=== PATIENT | female | born 1965 | race African-American/Black ===

== ENCOUNTER → 2016-03-26 | Outpatient (REF) | payer OTHER ==
[2016-03-26 15:34] LABS: IMMUNOGLOBULIN G 1760 MG/DL (681-1648); IMMUNOGLOBULIN M 56.2 MG/DL (40-230); TOTAL PROTEIN 7.7 GM/DL (6.4-8.2)
[2016-03-27 14:12] LABS: BETA 2 MICROGLOBULIN 1.4 mg/L (0.6-2.4)
[2016-03-28 00:06] LABS: FREE KAPPA LIGHT CHAINS SERUM 19.55 mg/L (3.30-19.40); FREE LAMBDA LIGHT CHAINS SERUM 46.42 mg/L (5.71-26.30); KAPPA/LAMBDA RATIO SERUM 0.42 (0.26-1.65)
[2016-03-30 11:48] LABS: ALBUMIN 3.68 GM/DL (3.29-5.55); ALBUMIN % 51.1 % (55.8-66.1); GAMMA GLOBULIN % 24.2 % (11.1-18.8)
== END | disposition home or self-care (01) ==
LOC: M LAB REF 12:35
PROVIDERS: ATTEND Internal Medicine Medical Oncology
DX: D47.2 Monoclonal gammopathy (principal)

== ENCOUNTER → 2016-04-10 | Outpatient (CLI) | payer OTHER ==
--- NOTE | 2016-04-23 00:37 | ECWPNPC ---
PATIENT NAME: JUSTYNA ALSTON : 1965 GENDER: FEMALE VISIT DATE: 04/10/2016 DISCHARGE DATE: 04/10/16 1546 VISIT LOCKED DATE TIME: PHYSICIAN: BEAR ROSSI RESOURCE: BEAR ROSSI REASON FOR APPOINTMENT 1. L BACK PAIN HISTORY OF PRESENT ILLNESS NEW PATIENT CONSULT: WHEN DID YOUR PAIN FIRST START? . BRIEFLY DESCRIBE HOW YOUR PAIN STARTED? . HOW DOES YOUR PAIN CHANGE WITH TIME? . DOES YOUR PAIN AWAKEN YOU FROM SLEEP? . HOW MANY HOURS OF SLEEP DO YOU NORMALLY GET? . ANY DIAGNOSTIC TESTING? . FACILITY WHERE TESTS WERE DONE? ____. PAIN TREATMENT TREATMENT YES CANCER HAVE YOU EVER HAD ANY TYPE OF CANCER?NO NO. PAIN SCREENING: PATIENT HAS A COMPLAINT OF ACUTE OR CHRONIC PAIN YES FALL RISK SCREENING: SCREENING :NO FALLS IN THE PAST YEAR [place] INVENTORY: QUESTIONNAIRE ASSESSEDYES SCORE VALUE CALCULATED YES SCORE: 21/63. REPORTS SHE HAS HAD THOUGHTS OF SELF HARM BUT NOT CURRENTLY. DENIES SUICIDE PLAN. DENIES HOMICIDAL IDEATION TODAY'S VISIT: NOTES: REFERREED FROM [facility] FOR EVAL AND TREATMENT OF CHRONIC LOW BACK PAIN. HAS HAD PREVIOUS TREATMENT IN [place] WHILE STATIONED. HAD A &QUOT;BLOCK&QUOT; WHICH LASTED LONGER THAN A MONTH. LAST INJECTION WS 08/14. HAS HAD PAIN FOR A LONG TIME. CAN NOT WALK FOR A DISTANCE, AND HAS BEEN HAVING DIFFICULTY. PAIN IS CENTERED IN LOW BACK WITH RADIATION TO RIGHT BUTTUCK AND OCCASIONAL SHARP SHOOTING PAIN DOWN RIGHT LEG HAS DIFFICULTY RISING TO A STANDING POSITION.. HAS INTTERMITTANT NUMBNESS IN RIGHT LEG AND FOOT. NO SPECIFIC INJURY AND PAIN . HAS BILATERAL KNEE PAIN AND NOTES THAT KNEES FEEL WEAK. HAS BEEN DOING DAILY EXERCISES, HAS BEEN TO PT. HAS NOT HAD ANY RECENT IMAGING STUDIES OF THE LOW BACK. USES 'S TENS UNIT. CURRENT MEDICATIONS TAKING TOPIRAMATE 50 MG TABLET 2 TABLET ORALLY TWICE A DAY TAKING INDOMETHACIN 50 MG CAPSULE 4 CAPSULES WITH FOOD OR MILK ORALLY NEEDED TAKING MODAFINIL 200 MG TABLET 1 TABLET IN THE MORNING ORALLY ONCE A DAY TAKING CLOBETASOL PROPIONATE 0.05 % CREAM 1 APPLICATION TO AFFECTED AREA EXTERNALLY TWICE A DAY TAKING PREMPRO 0.625-2.5 MG TABLET 1 TABLET ORALLY ONCE A DAY TAKING DOXYCYCLINE HYCLATE 100 MG CAPSULE 1 CAPSULE ORALLY EVERY 12 HRS TAKING LORATADINE 10 MG TABLET 1 TABLET ORALLY ONCE A DAY TAKING OMEPRAZOLE 20 MG CAPSULE DELAYED RELEASE 2 CAPSULES ORALLY ONCE A DAY TAKING HYDROXYCHLOROQUINE SULFATE 200 MG TABLET 1 TABLET WITH FOOD OR MILK ORALLY TWICE A DAY TAKING HYDROXYZINE HCL 10 MG TABLET ORALLY NEEDED TAKING ALBUTEROL SULFATE HFA 108 (90 BASE) MCG/ACT AEROSOL SOLUTION 2 PUFFS NEEDED INHALATION EVERY 4 HRS TAKING ADVAIR DISKUS 250-50 MCG/DOSE MISCELLANEOUS INHALATION TWICE DAILY TAKING VERAPAMIL HCL 240 MG (CO) TABLET EXTENDED RELEASE ORALLY DAILY TAKING ACETAMINOPHEN 325 MG TABLET 2 TABLETS NEEDED ORALLY EVERY 6 HRS TAKING PREVIDENT 1.1 % GEL DENTAL TAKING FLUTICASONE PROPIONATE (INHAL) 100 MCG/BLIST AEROSOL POWDER BREATH ACTIVATED 1 PUFF INHALATION TWICE A DAY TAKING FLUOXETINE TAKING DULOXETINE HCL 60 MG CAPSULE DELAYED RELEASE PARTICLES 1 CAPSULE ORALLY ONCE A DAY TAKING CELECOXIB 200 MG CAPSULE 1 CAPSULE ORALLY ONCE A DAY MEDICATION LIST REVIEWED AND RECONCILED WITH THE PATIENT PAST MEDICAL HISTORY CHEST PAIN ASTHMA HYPERTENSION NEGRITO WITH CPAP GERD LUPUS ARTHRITIS M JO ALLERGIES IMITREX: SEIZURES: ALLERGY IMPLANON: RASH: ALLERGY IV DYE: ANAPHYLAXIS: ALLERGY SURGICAL HISTORY APPENDIX 1993 C SECTION 1995 DYSPLASIA 1990 HERNIA REPAIR 1993 BUNIONECTOMY 1996 UTERAL ABLATION 2008 MULTIPLE INJECTIONS FOR BACK PAIN FAMILY HISTORY FATHER: MOTHER: ALIVE 2 SON(S) , 3 DAUGHTER(S) . SOCIAL HISTORY GENERAL: TOBACCO USE ARE YOU A:NONSMOKER ALCOHOL SCREENING POINTS0 INTERPRETATIONNEGATIVE RECREATIONAL DRUG USE DRUG USE?NO CAFFEINE CAFFEINE USE?YES HOW OFTEN AND HOW MUCH? DAILY USE LEARNING BARRIERS / SPECIAL NEEDS BARRIERS TO LEARNING?NO HEARING IMPAIRED?YES : SLIGHT LEFT EAR HEARING IMPAIRED. VISION IMPAIRED?YES :CORRECTIVE LENSES LEARNING PREFERENCES?NO PSYCHOLOGICAL HX TREATMENTYES HOW OFTEN AND HOW MUCH? PTSD CLINIC IN [facility] AND ONCE HERE IN [place], [place] PAIN CLINIC PFS, CLERGY, PUBLIC HEALTH REFERRALS PFS REFERRAL NEEDED?NO CLERGY REFERRAL NEEDED?NO PUBLIC HEALTH REFERRAL NEEDED?NO WAS THE PROVIDER NOTIFIED OF ANY PERTINENT INFO?NO PATIENT: ____. ADVANCED DIRECTIVES HEALTH CARE PROXY?NO POWER OF AUTOMOTIVE PARTS COUNTER PERSON?NO HOSPITALIZATION/MAJOR DIAGNOSTIC PROCEDURE FLU LIKE SEIZURES AFTER IMITRIX INJECTION REVIEW OF SYSTEMS CONSTITUTIONAL: ANY CHANGE IN YOUR MEDICAL CONDITION? NO . CHILLS NO . FEVER NO . INFECTION: DO YOU HAVE NEW INFECTIONS? NO . DO YOU HAVE HISTORY OF MRSA? NO . MUSCULOSKELETAL: ANY NEW PATTERNS OF PAIN OR NUMBNESS? YES, NOW HER NECK IS PAINFUL . SYTEMIC LUPUS YES, . GASTROENTEROLOGY: ANY NEW CHANGE IN BOWEL CONTROL? NO . BARRETTS ESOPHAGUS NO . CIRRHOSIS NO . HEPATITIS NO . LIVER FAILURE NO . ACID REFLUX YES CAN'T LAY DOWN, NEEDS TO DRINK WATER AND CAN NOT LAY DOWN , MEDS HELP . UNEXPLAINED WEIGHT LOSS NO . GENITOURINARY: ANY NEW CHANGE IN BLADDER CONTROL? NO . IS THERE A CHANCE YOU COULD BE ? NO . HEMATOLOGY/LYMPH: DO YOU TAKE ANY BLOOD THINNERS? (FOR EXAMPLE- COUMADIN, PLAVIX, AGGRENOX, PLATEL, PRADAXA, OR XARELTO) NO . WHEN WAS YOUR LAST DOSE? DATE: TIME: . LOW PLATELET COUNT NO . SICKLE CELL DISEASE NO . VON WILLIEBRANDS NO . FACTOR V LEIDEN NO . THALLASEMIA NO . ANEMIA NO . EASY BRUISING NO . NEUROLOGY: ANY NEW SEIZURES? HAD SEIZURE WITH IMITREX . MYAASTHENIA GRAVIS NO . PATIENT COMPLAINING OF REPORTS TESTING IN [facility] DEMONSTRATES SEVERE NARCOLEPSY. ON MODAFANIL. ONCE A DAY . MIGRAINES BOTOX WHICH HELPS. CAN HAVE MIGRAINE 2/WEEK. LAST IN MARCH AT [facility] . CARDIOLOGY: DO YOU HAVE A PACEMAKER OR DEFIBRILLATOR? NO . ANGINA NO . HEART ATTACK NO . HEART SURGERY NO . CONGESTIVE HEART FAILURE/FLUID OVERLOAD NO . CHEST PAIN INTERMITTANT SHARP CHEST WALL PAIN . HIGH BLOOD PRESSURE ON MEDICATION(S) . IRREGULAR HEART BEAT NO . RESPIRATORY: HAVE YOU BEEN SICK IN THE PAST WEEK? NO . FEVER NO . FLU LIKE SYMPTOMS? NO . CPAP YES . BYPAP NO . ASTHMA YES . EMPHYSEMA NO . CHRONIC LUNG DISEASES NO . SHORTNESS OF BREATH ON EXERTION NO . DO YOU USE ANY TYPE OF TOBACCO (SMOKE, SMOKELESS, CHEW)? NO . COUGH NO . SNORING NO . INTEGUMENTARY: DO YOU HAVE ANY RASHES OR OPEN SORES? NO - INTERMITTANT RASH FROM LUPUS. HAS DRY SKIN . ALLERGIC/IMMUNO: ARE YOU ALLERGIC TO SHELLFISH OR IV DYE? YES, IV DYE . ANY NEW ALLERGIES? NO . PSYCHIATRIC: DO YOU HAVE THOUGHTS OF HURTING YOURSELF OR SOMEONE ELSE? NO . ARE YOU ABUSED, NEGLECTED, OR IN AN UNSAFE ENVIRONMENT? NO . ENDOCRINOLOGY: ARE YOU DIABETIC? NO . THYROID DISORDER NO . OTHER: DO YOU NEED ANY PRESCRIPTIONS? NO . IF YES, PLEASE LIST: ____ . ANY NEW PROBLEMS WITH YOUR MEDICATIONS? NO . WHEN DID YOU LAST EAT? ____ . WHEN DID YOU LAST DRINK? ____ . WHAT DID YOU LAST DRINK? ____ . NAME OF PERSON DRIVING YOU HOME? ____ . DO YOU HAVE ANY OTHER QUESTIONS OR CONCERNS NO . PSYCHOLOGY: SLEEP DISTURBANCES CAN NOT LAY DOWN, PAIN . REVIEWED BY: PROVIDER: BEAR TANG . VITAL SIGNS WT 205.8 LBS, HT 63", BMI 36.45 INDEX, BP 150/90 MM HG, HR 93 /MIN, RR 16 /MIN, TEMP 97.8 F, OXYGEN SAT % 96, NA INITIALS TL 1320, REVIEWED BY: CM. EXAMINATION GENERAL EXAMINATION: MUSCULOSKELETAL:4_/5 RLE, 5/5 LLE. SPINE CURVED. POINT TENDERNESS OVER LEP AND RIGHT SAC.. NEUROLOGIC EXAM:DECREASED SENS RLE FROM THIGH THRU FOOT. DTR'S 2_ BUE, 1+ BLE . TOES DOWN NO CLONUS. 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 WITHOUT [id number],SUSAN M 04/10/2016 3:39:50 PM > LUMBAR RADICULOPATHY, INCREASING BACK PAIN REFERRAL TO:NIRMAL LATIFNEUROLOGY REASON:RIGHT LOWER EXTREMITY PARESTHESIA, RADICULOPATHY (PT ALSO HAS NARCOLEPSY) PROCEDURE CODES FA211 ESTABILISHED PATIENT [facility] FACILITY CHARGE DISPOSITION & COMMUNICATION FOLLOW UP 2 WEEKS (REASON: CHECK AUTH FOR MRI) ELECTRONICALLY SIGNED BY EMIGDIO JAIN ON 04/22/2016 AT 04:14 PM EST DISCLAIMER : THIS IS A VISIT SUMMARY EXTRACTED FROM THE [employer] CHART. IT IS NOT A COPY OF THE [employer] PROGRESS NOTE. MTDD
== END ==
LOC: M PAIN 13:20
PROVIDERS: ATTEND Nurse Practitioner Family
DX: G89.29 Other chronic pain (principal); M54.41 Lumbago with sciatica, right side; M54.16 Radiculopathy, lumbar region; I10 Essential (primary) hypertension; J45.909 Unspecified asthma, uncomplicated; G47.30 Sleep apnea, unspecified; K21.9 Gastro-esophageal reflux disease without esophagitis; M32.9 Systemic lupus erythematosus, unspecified; M19.90 Unspecified osteoarthritis, unspecified site; D47.2 Monoclonal gammopathy; Z88.8 Allergy status to other drugs, medicaments and biological substances; Z91.041 Radiographic dye allergy status; Z79.1 Long term (current) use of non-steroidal anti-inflammatories (NSAID); Z79.899 Other long term (current) drug therapy

== ENCOUNTER → 2016-04-24 | Outpatient (CLI) | payer OTHER ==
--- NOTE | 2016-04-25 00:12 | ECWPNPC ---
PATIENT NAME: JUSTYNA ALSTON : 1965 GENDER: FEMALE VISIT DATE: 04/24/2016 DISCHARGE DATE: 04/24/16 1510 VISIT LOCKED DATE TIME: PHYSICIAN: BEAR ROSSI RESOURCE: BEAR ROSSI REASON FOR APPOINTMENT 1. L BACK PAIN HISTORY OF PRESENT ILLNESS HISTORY OF PRESENT ILLNESS: PAIN THE PATIENT DESCRIBES THE PAIN... FALL RISK SCREENING: SCREENING :NO FALLS IN THE PAST YEAR TODAY'S VISIT: NOTES: RATES PAIN TODAY 5/10. DESCRIBES PAIN CONSTANT, ACHINGG, AND THROBBING.HAD ONSET OF SINUS INFECTION AFTER STARTING PREDNISONE. . CURRENT MEDICATIONS TAKING TOPIRAMATE 50 MG TABLET 2 TABLET ORALLY TWICE A DAY TAKING INDOMETHACIN 50 MG CAPSULE 4 CAPSULES WITH FOOD OR MILK ORALLY NEEDED TAKING MODAFINIL 200 MG TABLET 1 TABLET IN THE MORNING ORALLY ONCE A DAY TAKING CLOBETASOL PROPIONATE 0.05 % CREAM 1 APPLICATION TO AFFECTED AREA EXTERNALLY TWICE A DAY TAKING PREMPRO 0.625-2.5 MG TABLET 1 TABLET ORALLY ONCE A DAY TAKING DOXYCYCLINE HYCLATE 100 MG CAPSULE 1 CAPSULE ORALLY EVERY 12 HRS TAKING LORATADINE 10 MG TABLET 1 TABLET ORALLY ONCE A DAY TAKING OMEPRAZOLE 20 MG CAPSULE DELAYED RELEASE 2 CAPSULES ORALLY ONCE A DAY TAKING HYDROXYCHLOROQUINE SULFATE 200 MG TABLET 1 TABLET WITH FOOD OR MILK ORALLY TWICE A DAY TAKING HYDROXYZINE HCL 10 MG TABLET ORALLY NEEDED TAKING ALBUTEROL SULFATE HFA 108 (90 BASE) MCG/ACT AEROSOL SOLUTION 2 PUFFS NEEDED INHALATION EVERY 4 HRS TAKING ADVAIR DISKUS 250-50 MCG/DOSE MISCELLANEOUS INHALATION TWICE DAILY TAKING VERAPAMIL HCL 240 MG (CO) TABLET EXTENDED RELEASE ORALLY DAILY TAKING ACETAMINOPHEN 325 MG TABLET 2 TABLETS NEEDED ORALLY EVERY 6 HRS TAKING PREVIDENT 1.1 % GEL DENTAL TAKING FLUTICASONE PROPIONATE (INHAL) 100 MCG/BLIST AEROSOL POWDER BREATH ACTIVATED 1 PUFF INHALATION TWICE A DAY TAKING DULOXETINE HCL 60 MG CAPSULE DELAYED RELEASE PARTICLES 1 CAPSULE ORALLY ONCE A DAY TAKING CELECOXIB 200 MG CAPSULE 1 CAPSULE ORALLY ONCE A DAY NOT-TAKING FLUOXETINE NOT-TAKING PREDNISONE 10 MG TABLET 1 TABLET ORALLY TAKE 5 TABS X 2 DAY, 4 TAB X 2 DAY, 3 TAB X 2 DAY, 2 TAB X 2 DAY, 1 TAB X 2 DAY PAST MEDICAL HISTORY CHEST PAIN ASTHMA HYPERTENSION NEGRITO WITH CPAP GERD LUPUS ARTHRITIS M JO ALLERGIES IMITREX: SEIZURES: ALLERGY IMPLANON: RASH: ALLERGY IV DYE: ANAPHYLAXIS: ALLERGY SOCIAL HISTORY GENERAL: TOBACCO USE ARE YOU A:NONSMOKER LEARNING BARRIERS / SPECIAL NEEDS ORIENTED TO PLAN OF CARE: PATIENT, PAIN MANAGEMENT PATIENT, ORIENTED TO PLAN OF CARE: PATIENT, PAIN MANAGEMENT PATIENT. NEW PATIENT PAIN DIARY TODAY'S VISITNOTES FROM 0-10, WHAT LEVEL IS YOUR PAIN TODAY?0 PAIN CLINIC PFS, CLERGY, PUBLIC HEALTH REFERRALS PFS REFERRAL NEEDED?NO CLERGY REFERRAL NEEDED?NO PUBLIC HEALTH REFERRAL NEEDED?NO WAS THE PROVIDER NOTIFIED OF ANY PERTINENT INFO?NO PFS REFERRAL NEEDED?NO CLERGY REFERRAL NEEDED?NO PUBLIC HEALTH REFERRAL NEEDED?NO WAS THE PROVIDER NOTIFIED OF ANY PERTINENT INFO?NO REVIEW OF SYSTEMS CONSTITUTIONAL: ANY CHANGE IN YOUR MEDICAL CONDITION? NO . CHILLS NO . FEVER NO . INFECTION: DO YOU HAVE NEW INFECTIONS? NO . DO YOU HAVE HISTORY OF MRSA? NO . MUSCULOSKELETAL: ANY NEW PATTERNS OF PAIN OR NUMBNESS? NO . GASTROENTEROLOGY: ANY NEW CHANGE IN BOWEL CONTROL? NO . GENITOURINARY: ANY NEW CHANGE IN BLADDER CONTROL? NO . IS THERE A CHANCE YOU COULD BE ? NO . HEMATOLOGY/LYMPH: DO YOU TAKE ANY BLOOD THINNERS? (FOR EXAMPLE- COUMADIN, PLAVIX, AGGRENOX, PLATEL, PRADAXA, OR XARELTO) NO . WHEN WAS YOUR LAST DOSE? DATE: TIME: . NEUROLOGY: HAVE YOU FALLEN IN THE PAST 6 MONTHS? NO . ANY NEW EXTREMITY NUMBNESS OR WEAKNESS? NO . CARDIOLOGY: DO YOU HAVE A PACEMAKER OR DEFIBRILLATOR? NO . RESPIRATORY: SLEEP APNEA YES - HAVING DIFFICULT TIME USING CPAP MACHINE . HAVE YOU BEEN SICK IN THE PAST WEEK? YES . FEVER NO . FLU LIKE SYMPTOMS? NO . COUGH NO . INTEGUMENTARY: DO YOU HAVE ANY RASHES OR OPEN SORES? NO . ALLERGIC/IMMUNO: ARE YOU ALLERGIC TO SHELLFISH OR IV DYE? NO . ANY NEW ALLERGIES? NO . PSYCHIATRIC: DO YOU HAVE THOUGHTS OF HURTING YOURSELF OR SOMEONE ELSE? NO . ARE YOU ABUSED, NEGLECTED, OR IN AN UNSAFE ENVIRONMENT? NO . ENDOCRINOLOGY: ARE YOU DIABETIC? NO . OTHER: DO YOU NEED ANY PRESCRIPTIONS? NO . IF YES, PLEASE LIST: ____ . ANY NEW PROBLEMS WITH YOUR MEDICATIONS? NO . WHEN DID YOU LAST EAT? ____ . WHEN DID YOU LAST DRINK? ____ . WHAT DID YOU LAST DRINK? ____ . NAME OF PERSON DRIVING YOU HOME? ____ . DO YOU HAVE ANY OTHER QUESTIONS OR CONCERNS NO . REVIEWED BY: PROVIDER: BEAR TANG . VITAL SIGNS WT 205.4 LBS, HT 63", BMI 36.38 INDEX, BP 137/87 MM HG, HR 100 /MIN, RR 16 /MIN, TEMP 97.7 F, OXYGEN SAT % 99%, NA INITIALS SC 14:03, REVIEWED BY: KG. EXAMINATION GENERAL EXAMINATION: PSYCHALERT , ORIENTED X 3 , APPROPRIATE MOOD AND AFFECT . NO EPISODES OF SUDDEN SLEEP TODAY. HEENT:NASAL CONGESTION. TENDER OVER MAXILLARY AND FRONTAL SINUSES. LUNGS:CLEAR TO AUSCULTATION BILATERALLY. HEART:HEART RATE REGULAR. MUSCULOSKELETAL:4_/5 RLE, 5/5 LLE.. POINT TENDERNESS OVER LUMBAR SPINOUS PROCESSES AND AROSS LUMOSACRAL AXIX. SLOW TO RISE TO STANDING POSITION. NEUROLOGIC EXAM:DECREASED SENSATION RIGHT LOWER EXTREMITY FROM THIGH THRU FOOT. DTR'S 2_ BUE, 1+ BLE . DIAGNOSTIC TESTS REVIEWEDMRI OF LUMBAR SPINE COMPLETED ON 04/21/16. DEMONSTRATES MINIMAL CENTRAL CANAL STENOSIS AAT THE L#-4 AND L4-5 LEVELS SECONDRY TO DISC BULGE, LIGAMENTOUS AND FACET ARTHROPATHY. THERE IS ASLO HYPERTROPATHY OF THE POSTERIOR ARTICULATING FACETS AT L1-2, L2-3 AND L5-S1. 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 PROCEDURE CODES FA211 ESTABILISHED PATIENT [facility] FACILITY CHARGE DISPOSITION & COMMUNICATION FOLLOW UP AFTER INJECTION (REASON: CHECK AUTH FOR THERAPEUTIC LUMBAR FACET BLOCK L3-4, L4-5 AND L5S1) ELECTRONICALLY SIGNED BY EMIGDIO JAIN ON 04/24/2016 AT 05:26 PM EST DISCLAIMER : THIS IS A VISIT SUMMARY EXTRACTED FROM THE [employer] CHART. IT IS NOT A COPY OF THE [employer] PROGRESS NOTE. ANDREW
== END ==
LOC: M PAIN 14:00
PROVIDERS: ATTEND Nurse Practitioner Family
DX: Z09 Encounter for follow-up examination after completed treatment for conditions other than malignant neoplasm (principal); G89.29 Other chronic pain; M54.41 Lumbago with sciatica, right side; M54.16 Radiculopathy, lumbar region; J45.909 Unspecified asthma, uncomplicated; I10 Essential (primary) hypertension; G47.33 Obstructive sleep apnea (adult) (pediatric); K21.9 Gastro-esophageal reflux disease without esophagitis; M32.9 Systemic lupus erythematosus, unspecified; M19.90 Unspecified osteoarthritis, unspecified site; D47.2 Monoclonal gammopathy; Z88.8 Allergy status to other drugs, medicaments and biological substances; Z91.040 Latex allergy status; Z79.52 Long term (current) use of systemic steroids; Z79.1 Long term (current) use of non-steroidal anti-inflammatories (NSAID); Z79.899 Other long term (current) drug therapy

== ENCOUNTER → 2016-05-20 | Outpatient (REF) | payer OTHER ==
[2016-05-20 11:12] LABS: BASO % 0.7 % (0.0-1.0); EOS # 0.1 K/mm3 (0.0-0.50); EOS % 1.5 % (0.0-3.0); LARGE UNSTAINED CELL # 0.1 K/mm3 (0.0-0.4); LARGE UNSTAINED CELL % 2.3 % (0.0-4.0); LYMPH # 2.4 K/mm3 (1.5-4.5); LYMPH % 43.2 % (24.0-44.0); MEAN CORPUSCULAR HEMOGLOBIN 31.4 pg (27.0-33.0); MEAN CORPUSCULAR HGB CONC 33.9 g/dl (32.0-36.5); MEAN CORPUSCULAR VOLUME 92.5 fl (80.0-96.0); MONO # 0.3 K/mm3 (0.0-0.8); MONO % 5.3 % (0.0-5.0); NEUTROPHILS # 2.5 K/mm3 (1.8-7.7); PLATELET COUNT, AUTOMATED 247 k/mm3 (150-450); RED CELL DISTRIBUTION WIDTH 13.3 % (11.5-14.5); WHITE BLOOD COUNT 5.2 K/mm3 (4.0-10.0)
[2016-05-20 11:37] LABS: FOLATE 20.8 NG/ML (>5.4); VITAMIN B12 LEVEL 375 PG/ML (247-911)
[2016-05-20 11:46] LABS: ALBUMIN 3.5 GM/DL (3.2-5.2); ALBUMIN/GLOBULIN RATIO 0.88 (1.00-1.93); ALKALINE PHOSPHATASE 57 U/L (45-117); ALT/SGPT 31 U/L (12-78); ANION GAP 8 MEQ/L (8-16); AST/SGOT 21 U/L (15-37); BILIRUBIN,TOTAL 0.4 MG/DL (0.2-1.0); BLOOD UREA NITROGEN 16 MG/DL (7-18); CALCIUM LEVEL 8.9 MG/DL (8.5-10.1); CARBON DIOXIDE LEVEL 25 MEQ/L (21-32); CHLORIDE LEVEL 110 MEQ/L (98-107); CREATININE FOR GFR 0.92 MG/DL (0.55-1.02); GLOMERULAR FILTRATION RATE > 60.0 (>51); GLUCOSE, FASTING 93 MG/DL (70-105); POTASSIUM SERUM 3.8 MEQ/L (3.5-5.1); SODIUM LEVEL 143 MEQ/L (136-145); TOTAL PROTEIN 7.5 GM/DL (6.4-8.2)
[2016-05-20 12:14] LABS: ERYTHROCYTE SEDIMENTATION RATE 8 mm/hr (0-30)
[2016-05-23 08:06] LABS: SJOGREN'S ANTI SS-A >8.0 AI (0.0-0.9); SJOGREN'S ANTI SS-B <0.2 AI (0.0-0.9); VITAMIN E LEVEL 7.9 mg/L (5.3-16.8)
== END ==
LOC: M LABNEURO 10:16
PROVIDERS: ATTEND Psychiatry & Neurology Neurology
DX: G62.9 Polyneuropathy, unspecified (principal)

== ENCOUNTER → 2016-05-27 | Outpatient (CLI) | payer OTHER ==
[~2016-05-27] MED LIST: BUPIVACAINE HCL 0.25% 30 ML VIAL As Ordered ONE; LIDOCAINE 1% SDV INJ 30 ML VIAL As Ordered ONE; TRIAMCINOLONE ACETONIDE SUSP 40 MG/ML VIAL (J3301) As Ordered ONE; oxyCODONE 5MG TAB As Ordered ONE
--- NOTE | 2016-05-27 15:59 | REP ---
FLUOROSCOPIC GUIDANCE FOR LUMBAR FACET BLOCK: 05/27/2016: Clinical history: Low back pain. Two images from C-arm fluoroscopy provided to Dr. Alves of the pain clinic for bilateral lumbar facet block. A single oblique view for each side shows a needle at L4-5 and L5-S1 on each image respectively. Fluoroscopy time 20 seconds. Signed by Bryan Purcell MD 05/27/2016 05:13 P
--- NOTE | 2016-06-03 01:10 | ECWPNPC ---
PATIENT NAME: JUSTYNA ALSTON : 1965 GENDER: FEMALE VISIT DATE: 05/27/2016 DISCHARGE DATE: 05/27/16 1547 VISIT LOCKED DATE TIME: PHYSICIAN: ALVA DONOVAN RESOURCE: ALVA DONOVAN REASON FOR APPOINTMENT 1. THERAPEUTIC LUMBAR FACET HISTORY OF PRESENT ILLNESS HISTORY OF PRESENT ILLNESS: PAIN THE PATIENT DESCRIBES THE PAIN... FALL RISK SCREENING: SCREENING :NO FALLS IN THE PAST YEAR CURRENT MEDICATIONS TAKING TOPIRAMATE 50 MG TABLET 2 TABLET ORALLY TWICE A DAY, NOTES: 05/27/16729 TAKING INDOMETHACIN 50 MG CAPSULE 4 CAPSULES WITH FOOD OR MILK ORALLY NEEDED, NOTES: NONE RECENT TAKING MODAFINIL 200 MG TABLET 1 TABLET IN THE MORNING ORALLY ONCE A DAY, NOTES: 05/27/16729 TAKING CLOBETASOL PROPIONATE 0.05 % CREAM 1 APPLICATION TO AFFECTED AREA EXTERNALLY TWICE A DAY, NOTES: NONE RECENT TAKING PREMPRO 0.625-2.5 MG TABLET 1 TABLET ORALLY ONCE A DAY, NOTES: 05/27/16729 TAKING DOXYCYCLINE HYCLATE 100 MG CAPSULE 1 CAPSULE ORALLY EVERY 12 HRS, NOTES: 05/27/16729 TAKING LORATADINE 10 MG TABLET 1 TABLET ORALLY ONCE A DAY, NOTES: 05/27/16729 TAKING OMEPRAZOLE 20 MG CAPSULE DELAYED RELEASE 2 CAPSULES ORALLY ONCE A DAY, NOTES: 05/27/16729 TAKING HYDROXYCHLOROQUINE SULFATE 200 MG TABLET 1 TABLET WITH FOOD OR MILK ORALLY DAILY, NOTES: 05/26/16 230 TAKING HYDROXYZINE HCL 10 MG TABLET ORALLY NEEDED, NOTES: 05/27/16729 TAKING ALBUTEROL SULFATE HFA 108 (90 BASE) MCG/ACT AEROSOL SOLUTION 2 PUFFS NEEDED INHALATION EVERY 4 HRS, NOTES: 1 WEEK AGO TAKING ADVAIR DISKUS 250-50 MCG/DOSE MISCELLANEOUS INHALATION TWICE DAILY, NOTES: 05/27/16 06 TAKING VERAPAMIL HCL 240 MG (CO) TABLET EXTENDED RELEASE ORALLY DAILY, NOTES: 05/27/16729 TAKING ACETAMINOPHEN 325 MG TABLET 2 TABLETS NEEDED ORALLY EVERY 6 HRS, NOTES: NONE RECENT TAKING PREVIDENT 1.1 % GEL DENTAL , NOTES: 1 WEEK AGO TAKING FLUTICASONE PROPIONATE (INHAL) 100 MCG/BLIST AEROSOL POWDER BREATH ACTIVATED 1 PUFF INHALATION TWICE A DAY, NOTES: 05/26/162199 TAKING DULOXETINE HCL 60 MG CAPSULE DELAYED RELEASE PARTICLES 1 CAPSULE ORALLY ONCE A DAY, NOTES: 05/27/16 0730 TAKING CELECOXIB 200 MG CAPSULE 1 CAPSULE ORALLY ONCE A DAY, NOTES: 05/27/10 0730 TAKING CETIRIZINE HCL 10 MG TABLET 1 TABLET ORALLY ONCE A DAY, NOTES: 05/26/16 2300 NOT-TAKING FLUOXETINE NOT-TAKING PREDNISONE 10 MG TABLET 1 TABLET ORALLY TAKE 5 TABS X 2 DAY, 4 TAB X 2 DAY, 3 TAB X 2 DAY, 2 TAB X 2 DAY, 1 TAB X 2 DAY MEDICATION LIST REVIEWED AND RECONCILED WITH THE PATIENT PAST MEDICAL HISTORY CHEST PAIN ASTHMA HYPERTENSION NEGRITO WITH CPAP GERD LUPUS ARTHRITIS M JO ALLERGIES IMITREX: SEIZURES: ALLERGY IMPLANON: RASH: ALLERGY IV DYE: ANAPHYLAXIS: ALLERGY REVIEW OF SYSTEMS CONSTITUTIONAL: ANY CHANGE IN YOUR MEDICAL CONDITION? NO . CHILLS NO . FEVER NO . INFECTION: DO YOU HAVE NEW INFECTIONS? NO . DO YOU HAVE HISTORY OF MRSA? NO . MUSCULOSKELETAL: ANY NEW PATTERNS OF PAIN OR NUMBNESS? NO . GASTROENTEROLOGY: ANY NEW CHANGE IN BOWEL CONTROL? NO . GENITOURINARY: ANY NEW CHANGE IN BLADDER CONTROL? NO . IS THERE A CHANCE YOU COULD BE ? NO . HEMATOLOGY/LYMPH: DO YOU TAKE ANY BLOOD THINNERS? (FOR EXAMPLE- COUMADIN, PLAVIX, AGGRENOX, PLATEL, PRADAXA, OR XARELTO) NO . WHEN WAS YOUR LAST DOSE? DATE: TIME: . NEUROLOGY: HAVE YOU FALLEN IN THE PAST 6 MONTHS? NO . ANY NEW EXTREMITY NUMBNESS OR WEAKNESS? NO . CARDIOLOGY: DO YOU HAVE A PACEMAKER OR DEFIBRILLATOR? NO . RESPIRATORY: HAVE YOU BEEN SICK IN THE PAST WEEK? NO . FEVER NO . FLU LIKE SYMPTOMS? NO . COUGH NO . INTEGUMENTARY: DO YOU HAVE ANY RASHES OR OPEN SORES? NO . ALLERGIC/IMMUNO: ARE YOU ALLERGIC TO SHELLFISH OR IV DYE? YES IV DYE--DR. DONOVAN AWARE . ANY NEW ALLERGIES? NO . PSYCHIATRIC: DO YOU HAVE THOUGHTS OF HURTING YOURSELF OR SOMEONE ELSE? NO . ARE YOU ABUSED, NEGLECTED, OR IN AN UNSAFE ENVIRONMENT? NO . ENDOCRINOLOGY: ARE YOU DIABETIC? NO . OTHER: DO YOU NEED ANY PRESCRIPTIONS? NO . IF YES, PLEASE LIST: ____ . ANY NEW PROBLEMS WITH YOUR MEDICATIONS? NO . WHEN DID YOU LAST EAT? ____05/27/16 0718 . WHEN DID YOU LAST DRINK? ____05/27/16 1140 . WHAT DID YOU LAST DRINK? ____WATER . NAME OF PERSON DRIVING YOU HOME? ____HUSBAND, CARMELINA . DO YOU HAVE ANY OTHER QUESTIONS OR CONCERNS NO . REVIEWED BY: PROVIDER: . VITAL SIGNS WT 198.0 LBS, HT 63", BMI 35.07 INDEX, BP 131/81 MM HG, HR 90 /MIN, RR 18 /MIN, TEMP 98.4 F, OXYGEN SAT % 94%, NA INITIALS TL 1159, REVIEWED BY: AD. ASSESSMENTS SPONDYLOSIS WITHOUT MYELOPATHY OR RADICULOPATHY, LUMBOSACRAL REGION - M47.817 (PRIMARY) PROCEDURES PN LUMBAR FACET BLOCK THERAPEUTIC PRE PROCEDURE DIAGNOSIS : LUMBAR SPONDYLOSIS POST PROCEDURE DIAGNOSIS : LUMBAR SPONDYLOSIS PROCEDURE BILATERAL L3-L4 AND BILATERAL L4-L5 FACET THERAPEUTIC BLOCK SURGEON DR. ALVA DONOVAN MEDICAL INFORMATION SPECIALIST NONE ANESTHESIA LOCAL PRE PROCEDURE NOTE THE PATIENT HAS A HISTORY OF CHRONIC LOW BACK PAIN. I EVALUATE THE PATIENT AND REVIEWED THE CHART. I WENT OVER THE RISKS, ALTERNATIVES, AND BENEFITS ASSOCIATED WITH THIS PROCEDURE. THE PATIENT WOULD LIKE TO PROCEED AND GIVE CONSENT TO PERFORMED THE PROCEDURE. THE PATIENT DENIES UNEXPLAINABLE WEIGHT LOSS, FEVER, CHILLS, OR NEW CHANGES IN URINARY OR BOWEL CONTROL DESCRIPTION OF PROCEDURE THE PATIENT WAS BROUGHT TO THE PROCEDURE ROOM AND PLACED IN THE PRONE POSITION. THE LUMBOSACRAL AREA WAS CLEANED WITH CHLORAPREP SOLUTION AND DRAPED ASEPTICALLY. THE PROCEDURE WAS DONE UNDER STERILE CONDITIONS. I CHECKED LATERALITY AND THE LEVEL WHERE THE PROCEDURE WAS GOING TO BE PERFORMED WITH THE PATIENT AND THE SUPPORTING STAFF AT THE MOMENT OF THE TIME OUT IN THE PROCEDURE ROOM. UNDER FLUOROSCOPIC GUIDANCE, THE TARGET POINT WAS SELECTED AT THE RIGHT AND LEFT L3-L4 AND RIGHT AND LEFT L4-L5 FACET JOINT. TARGET POINT WAS SELECTED AFTER LATERAL ROTATION AND TILT OF THE MAGNIFIER OF THE C-ARM. LIDOCAINE 0.5% WAS USED TO NUMB THE SKIN AND THE SUBCUTANEOUS TISSUE BELOW IT. SPINAL NEEDLES, 22-GAUGE, WERE ADVANCED UNDER FLUOROSCOPIC GUIDANCE AND FOLLOWING PATIENT FEEDBACK UNTIL THE TARGETS WERE TOUCHED. THE POSITION OF THE NEEDLES WAS VERIFIED WITH AP AND LATERAL VIEWS. AFTER PROPER POSITION OF THE NEEDLES WAS ACHIEVED, ISOVUE-M DYE 30% 0.1 ML WAS INJECTED SHOWING ADEQUATE SPREAD OF THE DYE. THEN A SOLUTION OF 1.9 ML OF BUPIVACAINE 0.125% OF KENALOG 10 MG WAS INJECTED AT EACH SITE. THERE WAS NO EVIDENCE OF BLOOD, PARESTHESIA OR CEREBROSPINAL FLUID DURING THE PROCEDURE. THE PATIENT WAS SENT TO THE RECOVERY ROOM. THE PATIENT WAS MOVING THE EXTREMITIES AND DOING WELL. THERE WAS NO COMPLICATION DURING THE PROCEDURE. FLUOROSCOPY TIME WAS 20 SECONDS POST PROCEDURE NOTE THE PATIENT WILL BE SEEN IN A FOLLOW UP IN THE NEXT FEW WEEKS. INSTRUCTIONS WERE GIVEN, QUESTIONS WERE ANSWERED, AND THE PATIENT EXPRESSED UNDERSTANDING AND AGREES WITH THE PLAN. I, GILSON RODRIGUEZ, DOCUMENTED THE ABOVE INFORMATION ACTING A SCRIBE FOR DR. DONOVAN. I HAVE REVIEWED THE ABOVE DOCUMENT, WRITTEN BY GILSON RODRIGUEZ SCRIBE AND I VERIFY THAT IT IS ACCURATE. DIAGNOSTIC IMAGING [facility] FACET BLOCK (PAIN)[id number] PROCEDURE CODES 75026 INJ PARAVERT F JNT L/S 1 LEV 19154 INJ PARAVERT F JNT L/S 2 LEV 6045F RADXPS IN END [id number] PXD DISPOSITION & COMMUNICATION FOLLOW UP 3 WEEKS ELECTRONICALLY SIGNED BY ALVA DONOVAN MD ON 06/02/2016 AT 01:03 PM EDT DISCLAIMER : THIS IS A VISIT SUMMARY EXTRACTED FROM THE [employer] CHART. IT IS NOT A COPY OF THE [employer] PROGRESS NOTE. MTDD
== END ==
LOC: M PAIN 11:40
PROVIDERS: ATTEND Anesthesiology
DX: G89.29 Other chronic pain (principal); M54.5 Low back pain; M47.817 Spondylosis without myelopathy or radiculopathy, lumbosacral region; J45.909 Unspecified asthma, uncomplicated; I10 Essential (primary) hypertension; G47.33 Obstructive sleep apnea (adult) (pediatric); K21.9 Gastro-esophageal reflux disease without esophagitis; M32.9 Systemic lupus erythematosus, unspecified; M19.90 Unspecified osteoarthritis, unspecified site; Z88.8 Allergy status to other drugs, medicaments and biological substances; Z91.041 Radiographic dye allergy status; Z79.51 Long term (current) use of inhaled steroids
CPT/HCPCS: 64493; 64494; J3301

== ENCOUNTER → 2016-06-22 | Outpatient (CLI) | payer OTHER ==
--- NOTE | 2016-06-23 02:25 | ECWPNPC ---
PATIENT NAME: JUSTYNA ALSTON : 1965 GENDER: FEMALE VISIT DATE: 06/22/2016 DISCHARGE DATE: 06/22/16 1204 VISIT LOCKED DATE TIME: PHYSICIAN: BEAR ROSSI RESOURCE: BEAR ROSSI REASON FOR APPOINTMENT 1. POST PROCEDURE HISTORY OF PRESENT ILLNESS HISTORY OF PRESENT ILLNESS: PAIN THE PATIENT DESCRIBES THE PAIN... FALL RISK SCREENING: SCREENING :NO FALLS IN THE PAST YEAR TODAY'S VISIT: NOTES: RATES PAIN TODAY 04/10. IS S/P JARVIS LUMBAR FACET BLOCK COMPLETED ON 05/27/16 WITH Q 50% IMPROVEMENT IN PAIN.HAS HAD RECENT SEVERE UPPER RESP INFECTION WITH PRODUCTION. NOTED IMPROVEMNT AFTER INJECTION. IS NOTING PAIN FROM RIGHT LEG. CERTAIN MOVEMENT AGGREVATE THE PAIN. NO SPECIFIC NUMBNESS IN RIGHT LEG. . CURRENT MEDICATIONS TAKING TOPIRAMATE 50 MG TABLET 2 TABLET ORALLY TWICE A DAY, NOTES: 05/27/16729 TAKING INDOMETHACIN 50 MG CAPSULE 4 CAPSULES WITH FOOD OR MILK ORALLY NEEDED, NOTES: NONE RECENT TAKING MODAFINIL 200 MG TABLET 1 TABLET IN THE MORNING ORALLY ONCE A DAY, NOTES: 05/27/16729 TAKING CLOBETASOL PROPIONATE 0.05 % CREAM 1 APPLICATION TO AFFECTED AREA EXTERNALLY TWICE A DAY, NOTES: NONE RECENT TAKING PREMPRO 0.625-2.5 MG TABLET 1 TABLET ORALLY ONCE A DAY, NOTES: 05/27/16729 TAKING DOXYCYCLINE HYCLATE 100 MG CAPSULE 1 CAPSULE ORALLY EVERY 12 HRS, NOTES: 05/27/16729 TAKING LORATADINE 10 MG TABLET 1 TABLET ORALLY ONCE A DAY, NOTES: 05/27/16729 TAKING OMEPRAZOLE 20 MG CAPSULE DELAYED RELEASE 2 CAPSULES ORALLY ONCE A DAY, NOTES: 05/27/16729 TAKING HYDROXYCHLOROQUINE SULFATE 200 MG TABLET 1 TABLET WITH FOOD OR MILK ORALLY DAILY, NOTES: 05/26/16 2300 TAKING HYDROXYZINE HCL 10 MG TABLET ORALLY NEEDED, NOTES: 05/27/16729 TAKING ALBUTEROL SULFATE HFA 108 (90 BASE) MCG/ACT AEROSOL SOLUTION 2 PUFFS NEEDED INHALATION EVERY 4 HRS, NOTES: 1 WEEK AGO TAKING ADVAIR DISKUS 250-50 MCG/DOSE MISCELLANEOUS INHALATION TWICE DAILY, NOTES: 05/27/16 0600 TAKING VERAPAMIL HCL 240 MG (CO) TABLET EXTENDED RELEASE ORALLY DAILY, NOTES: 05/27/16729 TAKING ACETAMINOPHEN 325 MG TABLET 2 TABLETS NEEDED ORALLY EVERY 6 HRS, NOTES: NONE RECENT TAKING PREVIDENT 1.1 % GEL DENTAL , NOTES: 1 WEEK AGO TAKING FLUTICASONE PROPIONATE (INHAL) 100 MCG/BLIST AEROSOL POWDER BREATH ACTIVATED 1 PUFF INHALATION TWICE A DAY, NOTES: 05/26/162199 TAKING DULOXETINE HCL 60 MG CAPSULE DELAYED RELEASE PARTICLES 1 CAPSULE ORALLY ONCE A DAY, NOTES: 05/27/16729 TAKING CELECOXIB 200 MG CAPSULE 1 CAPSULE ORALLY ONCE A DAY, NOTES: 05/27/10729 TAKING CETIRIZINE HCL 10 MG TABLET 1 TABLET ORALLY ONCE A DAY, NOTES: 05/26/162299 TAKING COMBIVENT RESPIMAT 20-100 MCG/ACT AEROSOL SOLUTION 1 PUFF INHALATION FOUR TIMES A DAY TAKING AZITHROMYCIN 250 MG TABLET 2 TABLETS ON THE FIRST DAY, THEN 1 TABLET DAILY FOR 4 DAYS ORALLY ONCE A DAY TAKING ROBITUSSIN CHEST CONGESTION NOT-TAKING FLUOXETINE NOT-TAKING PREDNISONE 10 MG TABLET 1 TABLET ORALLY TAKE 5 TABS X 2 DAY, 4 TAB X 2 DAY, 3 TAB X 2 DAY, 2 TAB X 2 DAY, 1 TAB X 2 DAY MEDICATION LIST REVIEWED AND RECONCILED WITH THE PATIENT PAST MEDICAL HISTORY CHEST PAIN ASTHMA HYPERTENSION NEGRITO WITH CPAP GERD LUPUS ARTHRITIS M JO ALLERGIES IMITREX: SEIZURES: ALLERGY IMPLANON: RASH: ALLERGY IV DYE: ANAPHYLAXIS: ALLERGY SOCIAL HISTORY GENERAL: PAIN CLINIC PFS, CLERGY, PUBLIC HEALTH REFERRALS CLERGY REFERRAL NEEDED?NO WAS THE PROVIDER NOTIFIED OF ANY PERTINENT INFO?NO PFS REFERRAL NEEDED?NO PUBLIC HEALTH REFERRAL NEEDED?NO PATIENT: ____. REVIEW OF SYSTEMS CONSTITUTIONAL: ANY CHANGE IN YOUR MEDICAL CONDITION? YES PT TO SEE ENT FOR BALANCE/VERTIGO ISSUES . CHILLS NO . FEVER NO . INFECTION: DO YOU HAVE NEW INFECTIONS? NO . DO YOU HAVE HISTORY OF MRSA? NO . MUSCULOSKELETAL: ANY NEW PATTERNS OF PAIN OR NUMBNESS? YES PT REPORTS THAT GENERALLY THE PAIN HAS IMPROVED SINCE HAVING THE LFBT 05/27/16. STATES THAT PAIN IS NOW INTERMITTANT, DEPENDING ON THE ACTIVITY . GASTROENTEROLOGY: ANY NEW CHANGE IN BOWEL CONTROL? NO . GENITOURINARY: ANY NEW CHANGE IN BLADDER CONTROL? NO . IS THERE A CHANCE YOU COULD BE ? NO . HEMATOLOGY/LYMPH: DO YOU TAKE ANY BLOOD THINNERS? (FOR EXAMPLE- COUMADIN, PLAVIX, AGGRENOX, PLATEL, PRADAXA, OR XARELTO) NO . WHEN WAS YOUR LAST DOSE? DATE: TIME: . NEUROLOGY: HAVE YOU FALLEN IN THE PAST 6 MONTHS? YES PT REPORTS SHE HAS BALANCE/VERTIGO ISSUES AND HER KNEES ALSO GO WEAK, AND SHE HAS HAD FREQUENT FALLS. DENIES ANY INJURIES FROM FALLS.HISTORY OF NARCOLEPSY . ANY NEW EXTREMITY NUMBNESS OR WEAKNESS? NO . CARDIOLOGY: DO YOU HAVE A PACEMAKER OR DEFIBRILLATOR? NO . RESPIRATORY: HAVE YOU BEEN SICK IN THE PAST WEEK? YES PT REPORTS AN URI THAT HAS BEEN GOING ON SINCE MARCH, SAW HER PRIMARY AND WAS STARTED ON Z PACK 06/17. PT STATES SHE FEELS IT IS RESOLVING. STILL HAS FREQUENT HARSH COUGH, PT STATES SHE HAS BEEN COUGHING SO MUCH, SHE COUGHS UP BLOOD AT TIMES. . FEVER NO . FLU LIKE SYMPTOMS? NO . COUGH NO . INTEGUMENTARY: DO YOU HAVE ANY RASHES OR OPEN SORES? NO . ALLERGIC/IMMUNO: ARE YOU ALLERGIC TO SHELLFISH OR IV DYE? NO . ANY NEW ALLERGIES? NO . PSYCHIATRIC: DO YOU HAVE THOUGHTS OF HURTING YOURSELF OR SOMEONE ELSE? NO . ARE YOU ABUSED, NEGLECTED, OR IN AN UNSAFE ENVIRONMENT? NO . ENDOCRINOLOGY: ARE YOU DIABETIC? NO . OTHER: DO YOU NEED ANY PRESCRIPTIONS? NO . IF YES, PLEASE LIST: ____ . ANY NEW PROBLEMS WITH YOUR MEDICATIONS? NO . WHEN DID YOU LAST EAT? ____ . WHEN DID YOU LAST DRINK? ____ . WHAT DID YOU LAST DRINK? ____ . NAME OF PERSON DRIVING YOU HOME? ____ . DO YOU HAVE ANY OTHER QUESTIONS OR CONCERNS NO . REVIEWED BY: PROVIDER: BEAR TANG . VITAL SIGNS WT 196.4 LBS, HT 63", BMI 34.79 INDEX, BP 137/70 MM HG, HR 113 /MIN, RR 18 /MIN, TEMP 98.0 F, OXYGEN SAT % 95%, SAFE IN ENV? (Y/N) YES, NA INITIALS SC 11:11, REVIEWED BY: ANT. EXAMINATION GENERAL EXAMINATION: PSYCHALERT , ORIENTED X 3 , APPROPRIATE MOOD AND AFFECT . LUNGS:CLEAR TO AUSCULTATION BILATERALLY, NO WHEEZES OR RHONCHI - INTERMITTANT HARSH COUGH, PARTICULARLY WITH DEEP BREATHS. HEART:HEART RATE REGULAR. MUSCULOSKELETAL:MUSCLE STRENGTH TESTING 5/5 BILATERAL UPPER SND LOWER EXTREMITIES. RISES EASILY TO STANDING POSITION BUT STILL WITH BALANCE ISSUES NOTED. POIT TENDERNESS OVER RIGHT SIJ AND RIGHT BUTTUCK TO TROCANTER. POSTURE UPRIGHT, GAIT WIDE BASED. NO TENDERNESS ELICITED TODAY OVER LUMBAR FACETS.. NEUROLOGIC EXAM:CN'S II-XII GROSSLY INTACT. NO EPISODES OF NARCOLEPSY/CATAPLEXY NOTED DURING TODAYS VISIT. 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 CONTINUE VICKS TO CHEST WALL. ICE OR HEAT TO RIGHT LOW BACK. PROCEDURE CODES FA211 ESTABILISHED PATIENT [facility] FACILITY CHARGE DISPOSITION & COMMUNICATION FOLLOW UP AFTER INJECTION (REASON: CHECK AUTH FOR SIJ RIGHT - HAS NARCOLEPSY) ELECTRONICALLY SIGNED BY EMIGDIO JAIN ON 06/22/2016 AT 12:36 PM EDT DISCLAIMER : THIS IS A VISIT SUMMARY EXTRACTED FROM THE [employer] CHART. IT IS NOT A COPY OF THE [employer] PROGRESS NOTE. ANDREW
== END ==
LOC: M PAIN 11:00
PROVIDERS: ATTEND Nurse Practitioner Family
DX: G89.29 Other chronic pain (principal); M54.41 Lumbago with sciatica, right side; M54.16 Radiculopathy, lumbar region; J45.909 Unspecified asthma, uncomplicated; I10 Essential (primary) hypertension; G47.33 Obstructive sleep apnea (adult) (pediatric); K21.9 Gastro-esophageal reflux disease without esophagitis; M32.9 Systemic lupus erythematosus, unspecified; M19.90 Unspecified osteoarthritis, unspecified site; Z79.899 Other long term (current) drug therapy; Z79.51 Long term (current) use of inhaled steroids; Z88.8 Allergy status to other drugs, medicaments and biological substances

== ENCOUNTER → 2016-07-10 | Outpatient (CLI) | payer OTHER ==
[~2016-07-10] MED LIST changes: +ISOVUE-M 300 61% 15ML VIAL (Q9967) As Ordered ONE; +diazePAM 5 MG TAB As Ordered ONE
--- NOTE | 2016-07-10 11:52 | REP ---
PARTIAL SI JOINT SERIES: Two views. HISTORY: Right SI joint injection for pain. 17 seconds of fluoroscopy time is reported. FINDINGS: A sequence of two fluoroscopically obtained intraprocedural spot radiographs of the right SI joint document needle positions associated with SI joint injection procedure. Signed by Derek Hernandez MD 07/10/2016 12:58 P
--- NOTE | 2016-07-18 23:42 | ECWPNPC ---
PATIENT NAME: JUSTYNA ALSTON : 1965 GENDER: FEMALE VISIT DATE: 07/10/2016 DISCHARGE DATE: 07/10/16 1308 VISIT LOCKED DATE TIME: PHYSICIAN: ALVA DONOVAN RESOURCE: ALVA DONOVAN REASON FOR APPOINTMENT 1. SIJ HISTORY OF PRESENT ILLNESS HISTORY OF PRESENT ILLNESS: PAIN THE PATIENT DESCRIBES THE PAIN... FALL RISK SCREENING: SCREENING :NO FALLS IN THE PAST YEAR CURRENT MEDICATIONS TAKING TOPIRAMATE 50 MG TABLET 2 TABLET ORALLY TWICE A DAY, NOTES: 07-09-16 AM TAKING INDOMETHACIN 50 MG CAPSULE 4 CAPSULES WITH FOOD OR MILK ORALLY NEEDED, NOTES: NONE RECENT TAKING MODAFINIL 200 MG TABLET 1 TABLET IN THE MORNING ORALLY ONCE A DAY TAKING CLOBETASOL PROPIONATE 0.05 % CREAM 1 APPLICATION TO AFFECTED AREA EXTERNALLY TWICE A DAY, NOTES: NONE RECENT TAKING PREMPRO 0.625-2.5 MG TABLET 1 TABLET ORALLY ONCE A DAY, NOTES: 07-09-16 AM TAKING DOXYCYCLINE HYCLATE 100 MG CAPSULE 1 CAPSULE ORALLY EVERY 12 HRS, NOTES: 07-09-16 TAKING LORATADINE 10 MG TABLET 1 TABLET ORALLY ONCE A DAY, NOTES: 07-09-16 AM TAKING OMEPRAZOLE 20 MG CAPSULE DELAYED RELEASE 2 CAPSULES ORALLY ONCE A DAY, NOTES: 07-09-16 AM TAKING HYDROXYCHLOROQUINE SULFATE 200 MG TABLET 1 TABLET WITH FOOD OR MILK ORALLY DAILY, NOTES: 07-05-16 AM TAKING HYDROXYZINE HCL 10 MG TABLET ORALLY NEEDED, NOTES: 07-09-16 AM TAKING ALBUTEROL SULFATE HFA 108 (90 BASE) MCG/ACT AEROSOL SOLUTION 2 PUFFS NEEDED INHALATION EVERY 4 HRS, NOTES: 1 WEEK AGO TAKING ADVAIR DISKUS 250-50 MCG/DOSE MISCELLANEOUS INHALATION TWICE DAILY, NOTES: 07-09-16 AM TAKING VERAPAMIL HCL 240 MG (CO) TABLET EXTENDED RELEASE ORALLY DAILY, NOTES: 07-09-16 AM TAKING ACETAMINOPHEN 325 MG TABLET 2 TABLETS NEEDED ORALLY EVERY 6 HRS, NOTES: NONE RECENT TAKING PREVIDENT 1.1 % GEL DENTAL , NOTES: 1 WEEK AGO TAKING FLUTICASONE PROPIONATE (INHAL) 100 MCG/BLIST AEROSOL POWDER BREATH ACTIVATED 1 PUFF INHALATION TWICE A DAY, NOTES: 07-09-16 AM TAKING DULOXETINE HCL 60 MG CAPSULE DELAYED RELEASE PARTICLES 1 CAPSULE ORALLY ONCE A DAY, NOTES: 07-09-16 AM TAKING CELECOXIB 200 MG CAPSULE 1 CAPSULE ORALLY ONCE A DAY, NOTES: 07-09-16 AM TAKING CETIRIZINE HCL 10 MG TABLET 1 TABLET ORALLY ONCE A DAY, NOTES: 07-09-16 AM TAKING COMBIVENT RESPIMAT 20-100 MCG/ACT AEROSOL SOLUTION 1 PUFF INHALATION FOUR TIMES A DAY, NOTES: 07-09-16 AM TAKING ROBITUSSIN CHEST CONGESTION , NOTES: 07-09-162099 TAKING TESSALON PERLES 100 MG CAPSULE 1 CAPSULE NEEDED ORALLY THREE TIMES A DAY, NOTES: 07-09-162099 TAKING POTASSIUM CHLORIDE CR 10 MEQ 1 TAB TWICE DAILY NEEDED, NOTES: 07-09-16 PM TAKING VITAMIN D (ERGOCALCIFEROL) 79924 UNIT CAPSULE 1 CAPSULE ORALLY WEEKLY, NOTES: 07-06-16 DISCONTINUED AZITHROMYCIN 250 MG TABLET 2 TABLETS ON THE FIRST DAY, THEN 1 TABLET DAILY FOR 4 DAYS ORALLY ONCE A DAY DISCONTINUED FLUOXETINE DISCONTINUED PREDNISONE 10 MG TABLET 1 TABLET ORALLY TAKE 5 TABS X 2 DAY, 4 TAB X 2 DAY, 3 TAB X 2 DAY, 2 TAB X 2 DAY, 1 TAB X 2 DAY MEDICATION LIST REVIEWED AND RECONCILED WITH THE PATIENT PAST MEDICAL HISTORY CHEST PAIN ASTHMA HYPERTENSION NEGRITO WITH CPAP GERD LUPUS ARTHRITIS M JO ALLERGIES IMITREX: SEIZURES: ALLERGY IMPLANON: RASH: ALLERGY IV DYE: ANAPHYLAXIS: ALLERGY REVIEW OF SYSTEMS CONSTITUTIONAL: ANY CHANGE IN YOUR MEDICAL CONDITION? YES, BULGING DISC IN MID BACK. CARPALL TUNNEL BOTH HANDS . CHILLS NO . FEVER NO . INFECTION: DO YOU HAVE NEW INFECTIONS? NO . DO YOU HAVE HISTORY OF MRSA? NO . MUSCULOSKELETAL: ANY NEW PATTERNS OF PAIN OR NUMBNESS? NO . GASTROENTEROLOGY: ANY NEW CHANGE IN BOWEL CONTROL? NO . GENITOURINARY: ANY NEW CHANGE IN BLADDER CONTROL? NO . IS THERE A CHANCE YOU COULD BE ? NO . HEMATOLOGY/LYMPH: DO YOU TAKE ANY BLOOD THINNERS? (FOR EXAMPLE- COUMADIN, PLAVIX, AGGRENOX, PLATEL, PRADAXA, OR XARELTO) NO . WHEN WAS YOUR LAST DOSE? DATE: TIME: . NEUROLOGY: HAVE YOU FALLEN IN THE PAST 6 MONTHS? YES . ANY NEW EXTREMITY NUMBNESS OR WEAKNESS? NO . CARDIOLOGY: DO YOU HAVE A PACEMAKER OR DEFIBRILLATOR? NO . RESPIRATORY: HAVE YOU BEEN SICK IN THE PAST WEEK? NO . FEVER NO . FLU LIKE SYMPTOMS? NO . COUGH NO . INTEGUMENTARY: DO YOU HAVE ANY RASHES OR OPEN SORES? NO . ALLERGIC/IMMUNO: ARE YOU ALLERGIC TO SHELLFISH OR IV DYE? YES, IV DYE . ANY NEW ALLERGIES? NO . PSYCHIATRIC: DO YOU HAVE THOUGHTS OF HURTING YOURSELF OR SOMEONE ELSE? NO . ARE YOU ABUSED, NEGLECTED, OR IN AN UNSAFE ENVIRONMENT? NO . ENDOCRINOLOGY: ARE YOU DIABETIC? NO . OTHER: DO YOU NEED ANY PRESCRIPTIONS? NO . IF YES, PLEASE LIST: ____ . ANY NEW PROBLEMS WITH YOUR MEDICATIONS? NO . WHEN DID YOU LAST EAT? 07-09-16 2100 . WHEN DID YOU LAST DRINK? 2330 07-09-16 . WHAT DID YOU LAST DRINK? TEA . NAME OF PERSON DRIVING YOU HOME? CARMELINA . DO YOU HAVE ANY OTHER QUESTIONS OR CONCERNS NO . REVIEWED BY: PROVIDER: . VITAL SIGNS WT 197.2 LBS, HT 63", BMI 34.93 INDEX, BP 144/89 MM HG, HR 89 /MIN, RR 16 /MIN, TEMP 97.8 F, OXYGEN SAT % 96%, NA INITIALS TL 0927, REVIEWED BY: CM. ASSESSMENTS SACROILIITIS, NOT ELSEWHERE CLASSIFIED - M46.1 (PRIMARY) PROCEDURES PN SI PRE PROCEDURE DIAGNOSIS SACROILIITIS, SACROILIAC JOINT DYSFUNCTION POST PROCEDURE DIAGNOSIS SACROILIITIS, SACROILIAC JOINT DYSFUNCTION PROCEDURE RIGHT SACROILIAC JOINT BLOCK SURGEON DR. ALVA DONOVAN CREDIT REPORTING CLERK NONE ANESTHESIA LOCAL PRE PROCEDURE NOTE PATIENT WITH HISTORY OF CHRONIC LOW BACK PAIN. I EVALUATED THE PATIENT AND REVIEWED THE CHART. I WENT OVER THE RISKS, ALTERNATIVES, AND BENEFITS ASSOCIATED WITH THIS PROCEDURE. THE PATIENT WOULD LIKE TO PROCEED AND GAVE CONSENT TO PERFORM THE PROCEDURE. THE PATIENT DENIES UNEXPLAINABLE WEIGHT LOSS, FEVER, CHILLS, OR NEW CHANGES IN URINARY OR BOWEL CONTROL DESCRIPTION OF PROCEDURE THE PATIENT WAS BROUGHT TO THE PROCEDURE ROOM AND PLACED IN THE PRONE POSITION. THE LUMBOSACRAL AREA WAS CLEANED WITH CHLORAPREP SOLUTION AND DRAPED ASEPTICALLY. THE PROCEDURE WAS DONE UNDER STERILE CONDITIONS. I CHECKED LATERALITY AND THE LEVEL WHERE THE PROCEDURE WAS GOING TO BE PERFORMED WITH THE PATIENT AND THE SUPPORTING STAFF AT THE MOMENT OF THE TIME OUT IN THE PROCEDURE ROOM. UNDER FLUOROSCOPIC GUIDANCE, TARGET POINT WAS SELECTED AT THE LOWER BORDER OF THE RIGHT SACROILIAC JOINT. TARGET POINT WAS SELECTED AFTER MEDIAL ROTATION AND TILT OF THE MAGNIFIER OF THE C-ARM. LIDOCAINE WAS USED TO NUMB THE SKIN AND SUBCUTANEOUS TISSUE BELOW IT. A SPINAL NEEDLE, 22-GAUGE, WAS ADVANCED UNDER FLUOROSCOPIC GUIDANCE AND FOLLOWING PATIENT FEEDBACK UNTIL THE TARGET AREA WAS TOUCHED. THE POSITION OF THE NEEDLE WAS VERIFIED WITH AP AND LATERAL VIEWS. AFTER PROPER POSITION OF THE NEEDLE WAS ACHIEVED, ISOVUE M DYE 30%, 0.25 ML, WAS INJECTED SHOWING SPREAD OF THE DYE. THEN, A SOLUTION OF 20 MG OF KENALOG WAS INJECTED IN RIGHT JOINT WITH 3 ML OF BUPIVACAINE 0.125%. THERE WAS NO EVIDENCE OF BLOOD, PARESTHESIA OR CEREBROSPINAL FLUID DURING THE PROCEDURE. THE PATIENT WAS SENT TO THE RECOVERY ROOM. THE PATIENT WAS MOVING THE EXTREMITIES AND DOING WELL. THERE WAS NO COMPLICATION DURING THE PROCEDURE. FLUOROSCOPY TIME WAS 17 SECONDS POST PROCEDURE NOTE THE PATIENT WILL BE SEEN IN A FOLLOW UP IN THE NEXT FEW WEEKS. INSTRUCTIONS WERE GIVEN, QUESTIONS WERE ANSWERED, AND THE PATIENT EXPRESSED UNDERSTANDING AND AGREED WITH THE PLAN. I, DIDI SALEEM, DOCUMENTED THE ABOVE INFORMATION ACTING A SCRIBE FOR DR. DONOVAN. I HAVE REVIEWED THE ABOVE DOCUMENT, WRITTEN BY DIDI GREENBERG AND I VERIFY THAT IT IS [facility] FLUORO GUIDANCE (PAIN)[id number] PROCEDURE CODES 58112 INJECT SACROILIAC JOINT 6045F RADXPS IN END [id number] PXD DISPOSITION & COMMUNICATION FOLLOW UP 3 WEEKS ELECTRONICALLY SIGNED BY ALVA DONOVAN MD ON 07/18/2016 AT 07:05 PM EDT DISCLAIMER : THIS IS A VISIT SUMMARY EXTRACTED FROM THE [employer] CHART. IT IS NOT A COPY OF THE [employer] PROGRESS NOTE. MTDD
== END | disposition home or self-care (01) ==
LOC: M PAIN 09:00
PROVIDERS: ATTEND Anesthesiology
DX: G89.29 Other chronic pain (principal); M46.1 Sacroiliitis, not elsewhere classified; J45.909 Unspecified asthma, uncomplicated; I10 Essential (primary) hypertension; M19.90 Unspecified osteoarthritis, unspecified site; G47.33 Obstructive sleep apnea (adult) (pediatric); K21.9 Gastro-esophageal reflux disease without esophagitis; D68.62 Lupus anticoagulant syndrome; Z79.899 Other long term (current) drug therapy; Z79.51 Long term (current) use of inhaled steroids; Z88.8 Allergy status to other drugs, medicaments and biological substances; Z91.041 Radiographic dye allergy status
CPT/HCPCS: G0260; J3301

== ENCOUNTER → 2016-08-03 | Outpatient (CLI) | payer OTHER | LOC: M PAIN 11:00 | PROVIDERS: ATTEND Nurse Practitioner Family | DX: G89.29 Other chronic pain (principal); M46.1 Sacroiliitis, not elsewhere classified; M54.41 Lumbago with sciatica, right side; M54.16 Radiculopathy, lumbar region; J45.909 Unspecified asthma, uncomplicated; I10 Essential (primary) hypertension; G47.33 Obstructive sleep apnea (adult) (pediatric); K21.9 Gastro-esophageal reflux disease without esophagitis; M32.9 Systemic lupus erythematosus, unspecified; M19.90 Unspecified osteoarthritis, unspecified site; Z88.8 Allergy status to other drugs, medicaments and biological substances; Z91.041 Radiographic dye allergy status; Z79.51 Long term (current) use of inhaled steroids ==

== ENCOUNTER → 2016-08-21 | Outpatient (CLI) | payer OTHER ==
[~2016-08-21] MED LIST changes: -ISOVUE-M 300 61% 15ML VIAL (Q9967) As Ordered ONE
--- NOTE | 2016-08-21 15:52 | REP ---
FLUOROSCOPIC GUIDANCE: The images were reviewed with Dr. Olmos. The patient has a history of lumbago with sciatica. The portable C-arm was provided in the OR for Dr. Luque for fluoroscopic guidance. Seven intraoperative fluoroscopic spot films were obtained for needle placement verification for right SI joint injection. The films are on the PACs system and are available for review. 6 seconds of fluoroscopic time was utilized for this procedure. Reviewed by RAAD Agosto 08/21/2016 05:42 PEdited and Signed by Kentrell Olmos MD 09/07/2016 11:39 A
--- NOTE | 2016-09-01 23:24 | ECWPNPC ---
PATIENT NAME: JUSTYNA ALSTON : 1965 GENDER: FEMALE VISIT DATE: 08/21/2016 DISCHARGE DATE: 08/21/16 1137 VISIT LOCKED DATE TIME: PHYSICIAN: ALVA DONOVAN RESOURCE: ALVA DONOVAN REASON FOR APPOINTMENT 1. COCCYLSACRAGEAL HISTORY OF PRESENT ILLNESS HISTORY OF PRESENT ILLNESS: PAIN THE PATIENT DESCRIBES THE PAIN... FALL RISK SCREENING: SCREENING :NO FALLS IN THE PAST YEAR CURRENT MEDICATIONS TAKING TOPIRAMATE 50 MG TABLET 2 TABLET ORALLY TWICE A DAY, NOTES: 08/20/161999 TAKING INDOMETHACIN 50 MG CAPSULE 4 CAPSULES WITH FOOD OR MILK ORALLY NEEDED, NOTES: 08/20/16 0800A TAKING MODAFINIL 200 MG TABLET 1 TABLET IN THE MORNING ORALLY ONCE A DAY, NOTES: LAST WEEK TAKING CLOBETASOL PROPIONATE 0.05 % CREAM 1 APPLICATION TO AFFECTED AREA EXTERNALLY TWICE A DAY, NOTES: 2 WEEKS AGO TAKING PREMPRO 0.625-2.5 MG TABLET 1 TABLET ORALLY ONCE A DAY, NOTES: 08/20/16 0800A TAKING DOXYCYCLINE HYCLATE 100 MG CAPSULE 1 CAPSULE ORALLY EVERY 12 HRS, NOTES: 08/20/16799 TAKING LORATADINE 10 MG TABLET 1 TABLET ORALLY ONCE A DAY, NOTES: 08/20/16799 TAKING OMEPRAZOLE 20 MG CAPSULE DELAYED RELEASE 2 CAPSULES ORALLY ONCE A DAY, NOTES: 08/20/16799 TAKING HYDROXYCHLOROQUINE SULFATE 200 MG TABLET 2 TABLET WITH FOOD OR MILK ORALLY TWICE A DAY, NOTES: 08/16/16 08 TAKING HYDROXYZINE HCL 10 MG TABLET ORALLY NEEDED, NOTES: 08/20/16 08 TAKING ALBUTEROL SULFATE HFA 108 (90 BASE) MCG/ACT AEROSOL SOLUTION 2 PUFFS NEEDED INHALATION EVERY 4 HRS, NOTES: 3 DAYS AGO TAKING ADVAIR DISKUS 250-50 MCG/DOSE MISCELLANEOUS INHALATION TWICE DAILY, NOTES: 08/21/16 0700 TAKING VERAPAMIL HCL 240 MG (CO) TABLET EXTENDED RELEASE ORALLY DAILY, NOTES: 08/20/16 08 TAKING ACETAMINOPHEN 325 MG TABLET 2 TABLETS NEEDED ORALLY EVERY 6 HRS, NOTES: LONG TIME AGO TAKING PREVIDENT 1.1 % GEL DENTAL , NOTES: LONG TIME AGO TAKING FLUTICASONE PROPIONATE (INHAL) 100 MCG/BLIST AEROSOL POWDER BREATH ACTIVATED 1 PUFF INHALATION TWICE A DAY, NOTES: 2 DAYS AGO TAKING DULOXETINE HCL 60 MG CAPSULE DELAYED RELEASE PARTICLES 1 CAPSULE ORALLY ONCE A DAY, NOTES: 08/20/16 08 TAKING CELECOXIB 200 MG CAPSULE 1 CAPSULE ORALLY ONCE A DAY, NOTES: 08/20/16 08 TAKING CETIRIZINE HCL 10 MG TABLET 1 TABLET ORALLY ONCE A DAY, NOTES: LONG TIME AGO TAKING TESSALON PERLES 100 MG CAPSULE 1 CAPSULE NEEDED ORALLY THREE TIMES A DAY, NOTES: 08/20/162099 TAKING POTASSIUM CHLORIDE CR 10 MEQ 1 TAB TWICE DAILY, NOTES: 08/20/162099 TAKING VITAMIN D (ERGOCALCIFEROL) 03842 UNIT CAPSULE 1 CAPSULE ORALLY WEEKLY, NOTES: LAST WEDNESDAY TAKING LIDODERM 5 % PATCH 1 PATCH TO SKIN REMOVE AFTER 12 HOURS EXTERNALLY ONCE A DAY, NOTES: WEDNESDAY TAKING IPRATROPIUM BROMIDE HFA 17 MCG/ACT AEROSOL SOLUTION 2 PUFFS INHALATION FOUR TIMES A DAY, NOTES: 08/21/16729 NOT-TAKING COMBIVENT RESPIMAT 20-100 MCG/ACT AEROSOL SOLUTION 1 PUFF INHALATION FOUR TIMES A DAY NOT-TAKING ROBITUSSIN CHEST CONGESTION MEDICATION LIST REVIEWED AND RECONCILED WITH THE PATIENT PAST MEDICAL HISTORY CHEST PAIN ASTHMA HYPERTENSION NEGRITO WITH CPAP GERD LUPUS ARTHRITIS M JO ALLERGIES IMITREX: SEIZURES: ALLERGY IMPLANON: RASH: ALLERGY IV DYE: ANAPHYLAXIS: ALLERGY SURGICAL HISTORY APPENDIX 1993 C SECTION 1995 DYSPLASIA 1991 HERNIA REPAIR 1993 BUNIONECTOMY 1996 UTERAL ABLATION 2008 MULTIPLE INJECTIONS FOR BACK PAIN HOSPITALIZATION/MAJOR DIAGNOSTIC PROCEDURE FLU LIKE SEIZURES AFTER IMITRIX INJECTION REVIEW OF SYSTEMS REVIEWED BY: PROVIDER: . CONSTITUTIONAL: ANY CHANGE IN YOUR MEDICAL CONDITION? NO . CHILLS NO . FEVER NO . INFECTION: DO YOU HAVE NEW INFECTIONS? YES, COUGH SINCE MARCH. PT STATES HER PCP IS COVERING HER FOR THIS. . DO YOU HAVE HISTORY OF MRSA? NO . MUSCULOSKELETAL: ANY NEW PATTERNS OF PAIN OR NUMBNESS? NO . GASTROENTEROLOGY: ANY NEW CHANGE IN BOWEL CONTROL? NO . GENITOURINARY: ANY NEW CHANGE IN BLADDER CONTROL? NO . IS THERE A CHANCE YOU COULD BE ? NO . HEMATOLOGY/LYMPH: DO YOU TAKE ANY BLOOD THINNERS? (FOR EXAMPLE- COUMADIN, PLAVIX, AGGRENOX, PLATEL, PRADAXA, OR XARELTO) NO . WHEN WAS YOUR LAST DOSE? DATE: TIME: . NEUROLOGY: HAVE YOU FALLEN IN THE PAST 6 MONTHS? NO . ANY NEW EXTREMITY NUMBNESS OR WEAKNESS? NO . CARDIOLOGY: DO YOU HAVE A PACEMAKER OR DEFIBRILLATOR? NO . RESPIRATORY: HAVE YOU BEEN SICK IN THE PAST WEEK? NO . FEVER NO . FLU LIKE SYMPTOMS? NO . COUGH NO . INTEGUMENTARY: DO YOU HAVE ANY RASHES OR OPEN SORES? NO . ALLERGIC/IMMUNO: ARE YOU ALLERGIC TO SHELLFISH OR IV DYE? NO . ANY NEW ALLERGIES? NO . PSYCHIATRIC: DO YOU HAVE THOUGHTS OF HURTING YOURSELF OR SOMEONE ELSE? NO . ARE YOU ABUSED, NEGLECTED, OR IN AN UNSAFE ENVIRONMENT? NO . ENDOCRINOLOGY: ARE YOU DIABETIC? NO . OTHER: DO YOU NEED ANY PRESCRIPTIONS? NO . IF YES, PLEASE LIST: ____ . ANY NEW PROBLEMS WITH YOUR MEDICATIONS? NO . WHEN DID YOU LAST EAT? 08-20-16 8 PM . WHEN DID YOU LAST DRINK? 08-20-16 8 PM . NAME OF PERSON DRIVING YOU HOME? CARMELINA . DO YOU HAVE ANY OTHER QUESTIONS OR CONCERNS NO . VITAL SIGNS WT 195.6 LBS, HT 63", BMI 34.65 INDEX, BP 121/76 MM HG, HR 87 /MIN, RR 20 /MIN, TEMP 97.5 F, OXYGEN SAT % 96%, NA INITIALS TR 0900, REVIEWED BY: CM. ASSESSMENTS SACROILIITIS, NOT ELSEWHERE CLASSIFIED - M46.1 (PRIMARY) PROCEDURES PN SI PRE PROCEDURE DIAGNOSIS SACROILIITIS, SACROILIAC JOINT DYSFUNCTION POST PROCEDURE DIAGNOSIS SACROILIITIS, SACROILIAC JOINT DYSFUNCTION PROCEDURE RIGHT SACROILIAC JOINT BLOCK SURGEON DR. ALVA DONOVAN ELECTRIC ARC WELDER NONE ANESTHESIA LOCAL PRE PROCEDURE NOTE PATIENT WITH HISTORY OF CHRONIC LOW BACK PAIN. I EVALUATED THE PATIENT AND REVIEWED THE CHART. I WENT OVER THE RISKS, ALTERNATIVES, AND BENEFITS ASSOCIATED WITH THIS PROCEDURE. THE PATIENT WOULD LIKE TO PROCEED AND GAVE CONSENT TO PERFORM THE PROCEDURE. THE PATIENT DENIES UNEXPLAINABLE WEIGHT LOSS, FEVER, CHILLS, OR NEW CHANGES IN URINARY OR BOWEL CONTROL DESCRIPTION OF PROCEDURE THE PATIENT WAS BROUGHT TO THE PROCEDURE ROOM AND PLACED IN THE PRONE POSITION. THE LUMBOSACRAL AREA WAS CLEANED WITH CHLORAPREP SOLUTION AND DRAPED ASEPTICALLY. THE PROCEDURE WAS DONE UNDER STERILE CONDITIONS. I CHECKED LATERALITY AND THE LEVEL WHERE THE PROCEDURE WAS GOING TO BE PERFORMED WITH THE PATIENT AND THE SUPPORTING STAFF AT THE MOMENT OF THE TIME OUT IN THE PROCEDURE ROOM. UNDER FLUOROSCOPIC GUIDANCE, TARGET POINT WAS SELECTED AT THE LOWER BORDER OF THE RIGHT SACROILIAC JOINT. TARGET POINT WAS SELECTED AFTER MEDIAL ROTATION AND TILT OF THE MAGNIFIER OF THE C-ARM. LIDOCAINE WAS USED TO NUMB THE SKIN AND SUBCUTANEOUS TISSUE BELOW IT. A SPINAL NEEDLE, 22-GAUGE, WAS ADVANCED UNDER FLUOROSCOPIC GUIDANCE AND FOLLOWING PATIENT FEEDBACK UNTIL THE TARGET AREA WAS TOUCHED. THE POSITION OF THE NEEDLE WAS VERIFIED WITH AP AND LATERAL VIEWS. AFTER PROPER POSITION OF THE NEEDLE WAS ACHIEVED, ISOVUE M DYE 30%, 0.25 ML, WAS INJECTED SHOWING SPREAD OF THE DYE. THEN, A SOLUTION OF 20 MG OF KENALOG WAS INJECTED IN RIGHT JOINT WITH 3 ML OF BUPIVACAINE 0.125%. THERE WAS NO EVIDENCE OF BLOOD, PARESTHESIA OR CEREBROSPINAL FLUID DURING THE PROCEDURE. THE PATIENT WAS SENT TO THE RECOVERY ROOM. THE PATIENT WAS MOVING THE EXTREMITIES AND DOING WELL. THERE WAS NO COMPLICATION DURING THE PROCEDURE. FLUOROSCOPY TIME WAS 43 SECONDS POST PROCEDURE NOTE THE PATIENT WILL BE SEEN IN A FOLLOW UP IN THE NEXT FEW WEEKS. INSTRUCTIONS WERE GIVEN, QUESTIONS WERE ANSWERED, AND THE PATIENT EXPRESSED UNDERSTANDING AND AGREED WITH THE PLAN. I, DIDI SALEEM, DOCUMENTED THE ABOVE INFORMATION ACTING A SCRIBE FOR DR. DONOVAN. I HAVE REVIEWED THE ABOVE DOCUMENT, WRITTEN BY DIDI SALTERIBMaury AND I VERIFY THAT IT IS [facility] FLUORO GUIDANCE ([id number] PROCEDURE CODES 50209 INJECT SACROILIAC JOINT 6045F RADXPS IN END [id number] [id number] DISPOSITION & COMMUNICATION FOLLOW UP 3 WEEKS ELECTRONICALLY SIGNED BY ALVA DONOVAN MD ON 09/01/2016 AT 09:18 PM EDT DISCLAIMER : THIS IS A VISIT SUMMARY EXTRACTED FROM THE [facility] CHART. IT IS NOT A COPY OF THE [facility] PROGRESS NOTE. MTDD
== END ==
LOC: M PAIN 09:00
PROVIDERS: ATTEND Anesthesiology
DX: G89.29 Other chronic pain (principal); M46.1 Sacroiliitis, not elsewhere classified; J45.909 Unspecified asthma, uncomplicated; I10 Essential (primary) hypertension; G47.33 Obstructive sleep apnea (adult) (pediatric); K21.9 Gastro-esophageal reflux disease without esophagitis; D47.2 Monoclonal gammopathy; M32.9 Systemic lupus erythematosus, unspecified; M19.90 Unspecified osteoarthritis, unspecified site; Z88.8 Allergy status to other drugs, medicaments and biological substances; Z91.048 Other nonmedicinal substance allergy status; Z79.51 Long term (current) use of inhaled steroids; Z79.899 Other long term (current) drug therapy
CPT/HCPCS: G0260; J3301

== ENCOUNTER → 2016-09-02 | Outpatient (REF) | payer OTHER ==
[2016-09-05 00:07] LABS: D001-IgE D pteronyssinus <0.10 kU/L (Class 0); E001-IgE Cat Epith/Dander < 0.10 kU/L (Class 0); E005-IgE Dog Dander < 0.10 kU/L (Class 0); G002-IgE Bermuda Grass < 0.10 kU/L (Class 0); G008-IgE Kentucky Bluegrass < 0.10 kU/L (Class 0); M001-IgE Penicillium chrysogen < 0.10 kU/L (Class 0); M002 IgE Cladosporium herbaru < 0.10 kU/L (Class 0); M003 IgE Aspergillus fumigatu < 0.10 kU/L (Class 0); M006-IgE Alternaria alternata < 0.10 kU/L (Class 0); T001-IgE Maple/Box Elder < 0.10 kU/L (Class 0); T003-IgE Common Silver Birch < 0.10 kU/L (Class 0); T007-IgE Oak, White < 0.10 kU/L (Class 0); T008-IgE Elm, American < 0.10 kU/L (Class 0); T015-IgE Ash, White < 0.10 kU/L (Class 0); T041-IgE Hickory, White < 0.10 kU/L (Class 0); W001-IgE Ragweed, Short < 0.10 kU/L (Class 0); W009-IgE Plantain, English < 0.10 kU/L (Class 0); W014-IgE Pigweed, Rough < 0.10 kU/L (Class 0); W018-IgE Sheep Sorrel < 0.10 kU/L (Class 0)
== END ==
LOC: M LAB REF 12:53
PROVIDERS: ATTEND Internal Medicine Pulmonary Disease
DX: R05 Cough (principal)

== ENCOUNTER → 2016-09-04 | Outpatient (CLI) | payer OTHER ==
--- NOTE | 2016-10-02 01:18 | ECWPNPC ---
PATIENT NAME: JUSTYNA ALSTON : 1965 GENDER: FEMALE VISIT DATE: 09/04/2016 DISCHARGE DATE: 09/04/16 1429 VISIT LOCKED DATE TIME: PHYSICIAN: BEAR ROSSI RESOURCE: BEAR ROSSI REASON FOR APPOINTMENT 1. POST SIJ HISTORY OF PRESENT ILLNESS HISTORY OF PRESENT ILLNESS: PAIN THE PATIENT DESCRIBES THE PAIN... FALL RISK SCREENING: SCREENING :NO FALLS IN THE PAST YEAR TODAY'S VISIT: NOTES: S/P RIGHT SIJ INJECTION COMPLETED ON 08/21/16. NOTES A SORENESS ACROSS THE RIGHT SACRUM AND BUTTUCK AND A MORE ACUTE PAIN IN THE LEFT SIJ REGION. RATES PAIN LEVEL TODAY 4/10. DESCRIBES PAIN INTERMITTANT, ACHING, BURNING, TENDER AND SORE. PAIN CENTERED IN LOW BACH, RIGHT BUTTUCK NEAR COCCYX AND OVER THE LEFT SACRUM. CURRENT MEDICATIONS TAKING TOPIRAMATE 50 MG TABLET 2 TABLET ORALLY TWICE A DAY TAKING INDOMETHACIN 50 MG CAPSULE 4 CAPSULES WITH FOOD OR MILK ORALLY NEEDED TAKING MODAFINIL 200 MG TABLET 1 TABLET IN THE MORNING ORALLY ONCE A DAY TAKING CLOBETASOL PROPIONATE 0.05 % CREAM 1 APPLICATION TO AFFECTED AREA EXTERNALLY TWICE A DAY TAKING PREMPRO 0.625-2.5 MG TABLET 1 TABLET ORALLY ONCE A DAY TAKING DOXYCYCLINE HYCLATE 100 MG CAPSULE 1 CAPSULE ORALLY EVERY 12 HRS TAKING LORATADINE 10 MG TABLET 1 TABLET ORALLY ONCE A DAY TAKING OMEPRAZOLE 20 MG CAPSULE DELAYED RELEASE 2 CAPSULES ORALLY ONCE A DAY TAKING HYDROXYCHLOROQUINE SULFATE 200 MG TABLET 2 TABLET WITH FOOD OR MILK ORALLY TWICE A DAY TAKING HYDROXYZINE HCL 10 MG TABLET ORALLY NEEDED TAKING ALBUTEROL SULFATE HFA 108 (90 BASE) MCG/ACT AEROSOL SOLUTION 2 PUFFS NEEDED INHALATION EVERY 4 HRS TAKING ADVAIR DISKUS 250-50 MCG/DOSE MISCELLANEOUS INHALATION TWICE DAILY TAKING VERAPAMIL HCL 240 MG (CO) TABLET EXTENDED RELEASE ORALLY DAILY TAKING ACETAMINOPHEN 325 MG TABLET 2 TABLETS NEEDED ORALLY EVERY 6 HRS TAKING PREVIDENT 1.1 % GEL DENTAL TAKING FLUTICASONE PROPIONATE (INHAL) 100 MCG/BLIST AEROSOL POWDER BREATH ACTIVATED 1 PUFF INHALATION TWICE A DAY TAKING DULOXETINE HCL 60 MG CAPSULE DELAYED RELEASE PARTICLES 1 CAPSULE ORALLY ONCE A DAY TAKING CELECOXIB 200 MG CAPSULE 1 CAPSULE ORALLY ONCE A DAY TAKING CETIRIZINE HCL 10 MG TABLET 1 TABLET ORALLY ONCE A DAY TAKING TESSALON PERLES 100 MG CAPSULE 1 CAPSULE NEEDED ORALLY THREE TIMES A DAY TAKING POTASSIUM CHLORIDE CR 10 MEQ 1 TAB TWICE DAILY TAKING VITAMIN D (ERGOCALCIFEROL) 29334 UNIT CAPSULE 1 CAPSULE ORALLY WEEKLY TAKING LIDODERM 5 % PATCH 1 PATCH TO SKIN REMOVE AFTER 12 HOURS EXTERNALLY ONCE A DAY TAKING IPRATROPIUM BROMIDE HFA 17 MCG/ACT AEROSOL SOLUTION 2 PUFFS INHALATION FOUR TIMES A DAY NOT-TAKING COMBIVENT RESPIMAT 20-100 MCG/ACT AEROSOL SOLUTION 1 PUFF INHALATION FOUR TIMES A DAY NOT-TAKING ROBITUSSIN CHEST CONGESTION MEDICATION LIST REVIEWED AND RECONCILED WITH THE PATIENT PAST MEDICAL HISTORY CHEST PAIN ASTHMA HYPERTENSION NEGRITO WITH CPAP GERD LUPUS ARTHRITIS M JO ALLERGIES IMITREX: SEIZURES: ALLERGY IMPLANON: RASH: ALLERGY IV DYE: ANAPHYLAXIS: ALLERGY REVIEW OF SYSTEMS REVIEWED BY: PROVIDER: BEAR TANG . CONSTITUTIONAL: ANY CHANGE IN YOUR MEDICAL CONDITION? JUST HAD EEG DONE AND WILL HAVE MRI OF BRAIN SOONFOR MEMORY ISSUES, WORD FINDING PROBLEMS . CHILLS NO . FEVER NO . INFECTION: DO YOU HAVE NEW INFECTIONS? NO . DO YOU HAVE HISTORY OF MRSA? NO . MUSCULOSKELETAL: ANY NEW PATTERNS OF PAIN OR NUMBNESS? YES, PAIN ON THE LEFT SIDE NOW . GASTROENTEROLOGY: ANY NEW CHANGE IN BOWEL CONTROL? NO . GENITOURINARY: ANY NEW CHANGE IN BLADDER CONTROL? NO . IS THERE A CHANCE YOU COULD BE ? NO . HEMATOLOGY/LYMPH: DO YOU TAKE ANY BLOOD THINNERS? (FOR EXAMPLE- COUMADIN, PLAVIX, AGGRENOX, PLATEL, PRADAXA, OR XARELTO) NO . WHEN WAS YOUR LAST DOSE? DATE: TIME: . NEUROLOGY: HAVE YOU FALLEN IN THE PAST 6 MONTHS? NO . ANY NEW SEIZURES? EEG JUST GONE AND HAS MRI OF BRAIN SCHEDULED . ANY NEW EXTREMITY NUMBNESS OR WEAKNESS? NO . CARDIOLOGY: DO YOU HAVE A PACEMAKER OR DEFIBRILLATOR? NO . RESPIRATORY: HAVE YOU BEEN SICK IN THE PAST WEEK? NO . FEVER NO . FLU LIKE SYMPTOMS? NO . COUGH NO . INTEGUMENTARY: DO YOU HAVE ANY RASHES OR OPEN SORES? NO . ALLERGIC/IMMUNO: ARE YOU ALLERGIC TO SHELLFISH OR IV DYE? NO . ANY NEW ALLERGIES? NO . PSYCHIATRIC: DO YOU HAVE THOUGHTS OF HURTING YOURSELF OR SOMEONE ELSE? NO . ARE YOU ABUSED, NEGLECTED, OR IN AN UNSAFE ENVIRONMENT? NO . ENDOCRINOLOGY: ARE YOU DIABETIC? NO . OTHER: DO YOU NEED ANY PRESCRIPTIONS? NO . IF YES, PLEASE LIST: ____ . ANY NEW PROBLEMS WITH YOUR MEDICATIONS? NO . WHEN DID YOU LAST EAT? ____ . WHEN DID YOU LAST DRINK? ____ . WHAT DID YOU LAST DRINK? ____ . NAME OF PERSON DRIVING YOU HOME? ____ . DO YOU HAVE ANY OTHER QUESTIONS OR CONCERNS NO . VITAL SIGNS WT 194 LBS, HT 63", BMI 34.36 INDEX, BP 125/74 MM HG, HR 107 /MIN, RR 18 /MIN, TEMP 97.6 F, OXYGEN SAT % 95%, NA INITIALS AW 1339, REVIEWED BY: NL. EXAMINATION GENERAL EXAMINATION: PSYCHALERT , ORIENTED X 3 , APPROPRIATE MOOD AND AFFECT . LUNGS:CLEAR TO AUSCULTATION BILATERALLY, NO WHEEZES OR RHONCHI -. HEART:HEART RATE REGULAR. MUSCULOSKELETAL:MUSCLE STRENGTH TESTING 5/5 BILATERAL UPPER SND LOWER EXTREMITIES. RISES EASILY TO STANDING POSITION BUT STILL WITH BALANCE ISSUES NOTED. POINT TENDERNESS OVER RIGHT SIJ AND RIGHT BUTTUCK.. POSTURE UPRIGHT, GAIT WIDE BASED. . NEUROLOGIC EXAM:CN'S II-XII GROSSLY INTACT FATIGUES BUT NO EPISODES OF SLEEP NOTED TODAY. ASSESSMENTS SACROILIITIS, NOT ELSEWHERE CLASSIFIED - M46.1 (PRIMARY) LUMBAGO WITH SCIATICA, RIGHT SIDE - M54.41 (PRIMARY) OTHER CHRONIC PAIN - G89.29 LUMBAR RADICULOPATHY, RIGHT - M54.16 TREATMENT SACROILIITIS, NOT ELSEWHERE CLASSIFIED INJECTION ANESTHETIC SACROILIAC JOINTBEAR ROSSI 09/04/2016 2:17:54 PM > LEFT SIJ NOTES: ANATOMY OF THE SACROILIAC JOINT MATERIAL WAS PRINTEDCONTINUE TO WALK AND STRETCH. ALT ICE AND HEAT TO LOW BACK. MEDS PER NEUROLOGY/PCP. PREVENTIVE MEDICINE DISCUSSED PRE PROCEDURE CARE AND GAVE INFO / PT EXPRESSED UNDERSTANDING. PROCEDURE CODES FA211 ESTABILISHED PATIENT [facility] FACILITY CHARGE DISPOSITION & COMMUNICATION FOLLOW UP AFTER INJECTION (REASON: CHECK AUTH FOR SIJ. ) ELECTRONICALLY SIGNED BY EMIGDIO JAIN ON 10/01/2016 AT 08:44 AM EDT DISCLAIMER : THIS IS A VISIT SUMMARY EXTRACTED FROM THE [employer] CHART. IT IS NOT A COPY OF THE [employer] PROGRESS NOTE. MTDD
== END ==
LOC: M PAIN 13:20
PROVIDERS: ATTEND Nurse Practitioner Family
DX: G89.29 Other chronic pain (principal); M46.1 Sacroiliitis, not elsewhere classified; M54.41 Lumbago with sciatica, right side; M54.16 Radiculopathy, lumbar region; J45.909 Unspecified asthma, uncomplicated; I10 Essential (primary) hypertension; G47.33 Obstructive sleep apnea (adult) (pediatric); K21.9 Gastro-esophageal reflux disease without esophagitis; M32.9 Systemic lupus erythematosus, unspecified; D47.2 Monoclonal gammopathy; M19.90 Unspecified osteoarthritis, unspecified site; Z79.899 Other long term (current) drug therapy; Z91.041 Radiographic dye allergy status; Z88.8 Allergy status to other drugs, medicaments and biological substances

== ENCOUNTER → 2016-09-17 | Outpatient (CLI) | payer OTHER ==
--- NOTE | 2016-09-17 14:05 | REP ---
Partial SI joint series: Four views. History: Right SI joint injection for pain. 44 seconds of fluoroscopy time is reported. Findings: A sequence of four last image hold fluoro spot radiographs of the right SI joint document various needle positions associated with SI joint injection procedure. Signed by Derek Hernandez MD 09/17/2016 04:41 P
--- NOTE | 2016-09-27 23:31 | ECWPNPC ---
PATIENT NAME: JUSTYNA ALSTON : 1965 GENDER: FEMALE VISIT DATE: 09/17/2016 DISCHARGE DATE: 09/17/16 1256 VISIT LOCKED DATE TIME: PHYSICIAN: ALVA DONOVAN RESOURCE: ALVA DONOVAN REASON FOR APPOINTMENT 1. L SIJ HISTORY OF PRESENT ILLNESS HISTORY OF PRESENT ILLNESS: PAIN THE PATIENT DESCRIBES THE PAIN... FALL RISK SCREENING: SCREENING :NO FALLS IN THE PAST YEAR CURRENT MEDICATIONS TAKING TOPIRAMATE 50 MG TABLET 2 TABLET ORALLY TWICE A DAY, NOTES: 09-16-16799 TAKING INDOMETHACIN 50 MG CAPSULE 4 CAPSULES WITH FOOD OR MILK ORALLY NEEDED, NOTES: NONE TAKING MODAFINIL 200 MG TABLET 1 TABLET IN THE MORNING ORALLY ONCE A DAY, NOTES: 09-16-16799 TAKING CLOBETASOL PROPIONATE 0.05 % CREAM 1 APPLICATION TO AFFECTED AREA EXTERNALLY TWICE A DAY TAKING PREMPRO 0.625-2.5 MG TABLET 1 TABLET ORALLY ONCE A DAY, NOTES: 09-16-16799 TAKING DOXYCYCLINE HYCLATE 100 MG CAPSULE 1 CAPSULE ORALLY EVERY 12 HRS, NOTES: 09-16-16799 TAKING LORATADINE 10 MG TABLET 1 TABLET ORALLY ONCE A DAY, NOTES: 09-16-16799 TAKING OMEPRAZOLE 20 MG CAPSULE DELAYED RELEASE 2 CAPSULES ORALLY ONCE A DAY, NOTES: 09-16-16799 TAKING HYDROXYCHLOROQUINE SULFATE 200 MG TABLET 2 TABLET WITH FOOD OR MILK ORALLY TWICE A DAY, NOTES: 09-16-16799 TAKING HYDROXYZINE HCL 10 MG TABLET ORALLY NEEDED, NOTES: NONE TAKING ALBUTEROL SULFATE HFA 108 (90 BASE) MCG/ACT AEROSOL SOLUTION 2 PUFFS NEEDED INHALATION EVERY 4 HRS, NOTES: NONE TAKING ADVAIR DISKUS 250-50 MCG/DOSE MISCELLANEOUS INHALATION TWICE DAILY, NOTES: 09-17-16 TAKING VERAPAMIL HCL 240 MG (CO) TABLET EXTENDED RELEASE ORALLY DAILY, NOTES: 09-16-16799 TAKING ACETAMINOPHEN 325 MG TABLET 2 TABLETS NEEDED ORALLY EVERY 6 HRS, NOTES: 09-16-16 TAKING PREVIDENT 1.1 % GEL DENTAL TAKING FLUTICASONE PROPIONATE (INHAL) 100 MCG/BLIST AEROSOL POWDER BREATH ACTIVATED 1 PUFF INHALATION TWICE A DAY, NOTES: 09-17-16 TAKING DULOXETINE HCL 60 MG CAPSULE DELAYED RELEASE PARTICLES 1 CAPSULE ORALLY ONCE A DAY, NOTES: 09-16-16799 TAKING CELECOXIB 200 MG CAPSULE 1 CAPSULE ORALLY ONCE A DAY, NOTES: 09-16-16799 TAKING CETIRIZINE HCL 10 MG TABLET 1 TABLET ORALLY ONCE A DAY, NOTES: 09-16-16799 TAKING TESSALON PERLES 100 MG CAPSULE 1 CAPSULE NEEDED ORALLY THREE TIMES A DAY, NOTES: 09-16-16 TAKING POTASSIUM CHLORIDE CR 10 MEQ 1 TAB TWICE DAILY, NOTES: 09-16-16799 TAKING VITAMIN D (ERGOCALCIFEROL) 01235 UNIT CAPSULE 1 CAPSULE ORALLY WEEKLY, NOTES: WEDNESDAY TAKING LIDODERM 5 % PATCH 1 PATCH TO SKIN REMOVE AFTER 12 HOURS EXTERNALLY ONCE A DAY, NOTES: NONE TAKING IPRATROPIUM BROMIDE HFA 17 MCG/ACT AEROSOL SOLUTION 2 PUFFS INHALATION FOUR TIMES A DAY, NOTES: 09-17-16 TAKING MONTELUKAST SODIUM 10 MG TABLET 1 TABLET IN THE EVENING ORALLY ONCE A DAY, NOTES: 09-16-16799 TAKING RANITIDINE HCL 150 MG CAPSULE 1 CAPSULE AT BEDTIME ORALLY ONCE A DAY, NOTES: 09-15-16 PM NOT-TAKING COMBIVENT RESPIMAT 20-100 MCG/ACT AEROSOL SOLUTION 1 PUFF INHALATION FOUR TIMES A DAY NOT-TAKING ROBITUSSIN CHEST CONGESTION MEDICATION LIST REVIEWED AND RECONCILED WITH THE PATIENT PAST MEDICAL HISTORY CHEST PAIN ASTHMA HYPERTENSION NEGRITO WITH CPAP GERD LUPUS ARTHRITIS M JO ALLERGIES IMITREX: SEIZURES: ALLERGY IMPLANON: RASH: ALLERGY IV DYE: ANAPHYLAXIS: ALLERGY SURGICAL HISTORY APPENDIX 1993 C SECTION 1996 DYSPLASIA 1991 HERNIA REPAIR 1993 BUNIONECTOMY 1996 UTERAL ABLATION 2008 MULTIPLE INJECTIONS FOR BACK PAIN HOSPITALIZATION/MAJOR DIAGNOSTIC PROCEDURE FLU LIKE SEIZURES AFTER IMITRIX INJECTION REVIEW OF SYSTEMS REVIEWED BY: PROVIDER: . CONSTITUTIONAL: ANY CHANGE IN YOUR MEDICAL CONDITION? NO . CHILLS NO . FEVER NO . INFECTION: DO YOU HAVE NEW INFECTIONS? NO . DO YOU HAVE HISTORY OF MRSA? NO . MUSCULOSKELETAL: ANY NEW PATTERNS OF PAIN OR NUMBNESS? NO . GASTROENTEROLOGY: ANY NEW CHANGE IN BOWEL CONTROL? NO . GENITOURINARY: ANY NEW CHANGE IN BLADDER CONTROL? NO . IS THERE A CHANCE YOU COULD BE ? NO . HEMATOLOGY/LYMPH: DO YOU TAKE ANY BLOOD THINNERS? (FOR EXAMPLE- COUMADIN, PLAVIX, AGGRENOX, PLATEL, PRADAXA, OR XARELTO) NO . WHEN WAS YOUR LAST DOSE? DATE: TIME: . NEUROLOGY: HAVE YOU FALLEN IN THE PAST 6 MONTHS? NO . ANY NEW EXTREMITY NUMBNESS OR WEAKNESS? NO . CARDIOLOGY: DO YOU HAVE A PACEMAKER OR DEFIBRILLATOR? NO . RESPIRATORY: HAVE YOU BEEN SICK IN THE PAST WEEK? NO . FEVER NO . FLU LIKE SYMPTOMS? NO . COUGH NO . INTEGUMENTARY: DO YOU HAVE ANY RASHES OR OPEN SORES? NO . ALLERGIC/IMMUNO: ARE YOU ALLERGIC TO SHELLFISH OR IV DYE? NO . ANY NEW ALLERGIES? NO . PSYCHIATRIC: DO YOU HAVE THOUGHTS OF HURTING YOURSELF OR SOMEONE ELSE? NO . ARE YOU ABUSED, NEGLECTED, OR IN AN UNSAFE ENVIRONMENT? NO . ENDOCRINOLOGY: ARE YOU DIABETIC? NO . OTHER: DO YOU NEED ANY PRESCRIPTIONS? NO . IF YES, PLEASE LIST: ____ . ANY NEW PROBLEMS WITH YOUR MEDICATIONS? NO . WHEN DID YOU LAST EAT? 09-16-16 7:30 PM . WHEN DID YOU LAST DRINK? 09-16-16 0985 . WHAT DID YOU LAST DRINK? JUICE . NAME OF PERSON DRIVING YOU HOME? CARMELINA . DO YOU HAVE ANY OTHER QUESTIONS OR CONCERNS NO . VITAL SIGNS WT 195.2 LBS, HT 63", BMI 34.57 INDEX, BP 133/85 MM HG, HR 87 /MIN, RR 16 /MIN, TEMP 97.0 F, OXYGEN SAT % 98%, NA INITIALS TL 1038, REVIEWED BY: CM. ASSESSMENTS SACROILIITIS, NOT ELSEWHERE CLASSIFIED - M46.1 (PRIMARY) PROCEDURES PN SI PRE PROCEDURE DIAGNOSIS SACROILIITIS, SACROILIAC JOINT DYSFUNCTION POST PROCEDURE DIAGNOSIS SACROILIITIS, SACROILIAC JOINT DYSFUNCTION PROCEDURE RIGHT SACROILIAC JOINT BLOCK SURGEON DR. ALVA DONOVAN KELP OR SEAGRASS GATHERER NONE ANESTHESIA LOCAL PRE PROCEDURE NOTE PATIENT WITH HISTORY OF CHRONIC LOW BACK PAIN. I EVALUATED THE PATIENT AND REVIEWED THE CHART. I WENT OVER THE RISKS, ALTERNATIVES, AND BENEFITS ASSOCIATED WITH THIS PROCEDURE. THE PATIENT WOULD LIKE TO PROCEED AND GAVE CONSENT TO PERFORM THE PROCEDURE. THE PATIENT DENIES UNEXPLAINABLE WEIGHT LOSS, FEVER, CHILLS, OR NEW CHANGES IN URINARY OR BOWEL CONTROL DESCRIPTION OF PROCEDURE THE PATIENT WAS BROUGHT TO THE PROCEDURE ROOM AND PLACED IN THE PRONE POSITION. THE LUMBOSACRAL AREA WAS CLEANED WITH CHLORAPREP SOLUTION AND DRAPED ASEPTICALLY. THE PROCEDURE WAS DONE UNDER STERILE CONDITIONS. I CHECKED LATERALITY AND THE LEVEL WHERE THE PROCEDURE WAS GOING TO BE PERFORMED WITH THE PATIENT AND THE SUPPORTING STAFF AT THE MOMENT OF THE TIME OUT IN THE PROCEDURE ROOM. UNDER FLUOROSCOPIC GUIDANCE, TARGET POINT WAS SELECTED AT THE LOWER BORDER OF THE RIGHT SACROILIAC JOINT. TARGET POINT WAS SELECTED AFTER MEDIAL ROTATION AND TILT OF THE MAGNIFIER OF THE C-ARM. LIDOCAINE WAS USED TO NUMB THE SKIN AND SUBCUTANEOUS TISSUE BELOW IT. A SPINAL NEEDLE, 22-GAUGE, WAS ADVANCED UNDER FLUOROSCOPIC GUIDANCE AND FOLLOWING PATIENT FEEDBACK UNTIL THE TARGET AREA WAS TOUCHED. THE POSITION OF THE NEEDLE WAS VERIFIED WITH AP AND LATERAL VIEWS. AFTER PROPER POSITION OF THE NEEDLE WAS ACHIEVED, ISOVUE M DYE 30%, 0.25 ML, WAS INJECTED SHOWING SPREAD OF THE DYE. THEN, A SOLUTION OF 20 MG OF KENALOG WAS INJECTED IN RIGHT JOINT WITH 3 ML OF BUPIVACAINE 0.125%. THERE WAS NO EVIDENCE OF BLOOD, PARESTHESIA OR CEREBROSPINAL FLUID DURING THE PROCEDURE. THE PATIENT WAS SENT TO THE RECOVERY ROOM. THE PATIENT WAS MOVING THE EXTREMITIES AND DOING WELL. THERE WAS NO COMPLICATION DURING THE PROCEDURE. FLUOROSCOPY TIME WAS 29 SECONDS POST PROCEDURE NOTE THE PATIENT WILL BE SEEN IN A FOLLOW UP IN THE NEXT FEW WEEKS. INSTRUCTIONS WERE GIVEN, QUESTIONS WERE ANSWERED, AND THE PATIENT EXPRESSED UNDERSTANDING AND AGREED WITH THE PLAN. I, DIDI SALEEM, DOCUMENTED THE ABOVE INFORMATION ACTING A SCRIBE FOR DR. DONOVAN. I HAVE REVIEWED THE ABOVE DOCUMENT, WRITTEN BY DIDI GREENBERG AND I VERIFY THAT IT IS [facility] FLUORO GUIDANCE (PAIN)[id number] PROCEDURE CODES 60743 INJECT SACROILIAC JOINT 6045F RADXPS IN END [id number] PXD DISPOSITION & COMMUNICATION FOLLOW UP 3 WEEKS ELECTRONICALLY SIGNED BY ALVA DONOVAN MD ON 09/27/2016 AT 08:09 PM EDT DISCLAIMER : THIS IS A VISIT SUMMARY EXTRACTED FROM THE [employer] CHART. IT IS NOT A COPY OF THE [employer] PROGRESS NOTE. MTDD
== END ==
LOC: M PAIN 10:20
PROVIDERS: ATTEND Anesthesiology
DX: G89.29 Other chronic pain (principal); M54.5 Low back pain; M46.1 Sacroiliitis, not elsewhere classified; R07.9 Chest pain, unspecified; J45.909 Unspecified asthma, uncomplicated; I10 Essential (primary) hypertension; G47.33 Obstructive sleep apnea (adult) (pediatric); Z79.899 Other long term (current) drug therapy; D47.2 Monoclonal gammopathy; M32.9 Systemic lupus erythematosus, unspecified; M19.90 Unspecified osteoarthritis, unspecified site; Z91.041 Radiographic dye allergy status; Z88.8 Allergy status to other drugs, medicaments and biological substances; K21.9 Gastro-esophageal reflux disease without esophagitis
CPT/HCPCS: G0260; J3301

== ENCOUNTER → 2016-10-16 | Outpatient (CLI) | payer OTHER ==
--- NOTE | 2016-11-01 23:47 | ECWPNPC ---
PATIENT NAME: JUSTYNA ALSTON : 1965 GENDER: FEMALE VISIT DATE: 10/16/2016 DISCHARGE DATE: 10/16/16 1355 VISIT LOCKED DATE TIME: PHYSICIAN: BEAR ROSSI RESOURCE: BEAR ROSSI REASON FOR APPOINTMENT 1. POST SIJ HISTORY OF PRESENT ILLNESS HISTORY OF PRESENT ILLNESS: PAIN THE PATIENT DESCRIBES THE PAIN... FALL RISK SCREENING: SCREENING :NO FALLS IN THE PAST YEAR TODAY'S VISIT: NOTES: RATES PAIN TODAY 4/10. GOOD AND BAD DAYS. HAS TO STOP ACTIVITY AT TIMES. IS S/P RIGHT SIJ COMPLETED ON 09/17/16. PAIN LEVEL PRIOR TO TREATMENT 5/10 AND VERY INTENSE. POST TREATMENT PAIN LEVEL 4-4/10 AND NOT INTENSE. CURRENT MEDICATIONS TAKING TOPIRAMATE 50 MG TABLET 2 TABLET ORALLY TWICE A DAY TAKING INDOMETHACIN 50 MG CAPSULE 4 CAPSULES WITH FOOD OR MILK ORALLY NEEDED TAKING MODAFINIL 200 MG TABLET 1 TABLET IN THE MORNING ORALLY ONCE A DAY TAKING CLOBETASOL PROPIONATE 0.05 % CREAM 1 APPLICATION TO AFFECTED AREA EXTERNALLY TWICE A DAY TAKING PREMPRO 0.625-2.5 MG TABLET 1 TABLET ORALLY ONCE A DAY TAKING DOXYCYCLINE HYCLATE 100 MG CAPSULE 1 CAPSULE ORALLY EVERY 12 HRS TAKING LORATADINE 10 MG TABLET 1 TABLET ORALLY ONCE A DAY TAKING OMEPRAZOLE 20 MG CAPSULE DELAYED RELEASE 2 CAPSULES ORALLY ONCE A DAY TAKING HYDROXYCHLOROQUINE SULFATE 200 MG TABLET 2 TABLET WITH FOOD OR MILK ORALLY TWICE A DAY TAKING HYDROXYZINE HCL 10 MG TABLET ORALLY NEEDED TAKING ALBUTEROL SULFATE HFA 108 (90 BASE) MCG/ACT AEROSOL SOLUTION 2 PUFFS NEEDED INHALATION EVERY 4 HRS TAKING ADVAIR DISKUS 250-50 MCG/DOSE MISCELLANEOUS INHALATION TWICE DAILY TAKING VERAPAMIL HCL 240 MG (CO) TABLET EXTENDED RELEASE ORALLY DAILY TAKING ACETAMINOPHEN 325 MG TABLET 2 TABLETS NEEDED ORALLY EVERY 6 HRS TAKING PREVIDENT 1.1 % GEL DENTAL TAKING FLUTICASONE PROPIONATE (INHAL) 100 MCG/BLIST AEROSOL POWDER BREATH ACTIVATED 1 PUFF INHALATION TWICE A DAY TAKING DULOXETINE HCL 60 MG CAPSULE DELAYED RELEASE PARTICLES 1 CAPSULE ORALLY ONCE A DAY TAKING CELECOXIB 200 MG CAPSULE 1 CAPSULE ORALLY ONCE A DAY TAKING CETIRIZINE HCL 10 MG TABLET 1 TABLET ORALLY ONCE A DAY TAKING TESSALON PERLES 100 MG CAPSULE 1 CAPSULE NEEDED ORALLY THREE TIMES A DAY TAKING POTASSIUM CHLORIDE CR 10 MEQ 1 TAB TWICE DAILY TAKING VITAMIN D (ERGOCALCIFEROL) 00791 UNIT CAPSULE 1 CAPSULE ORALLY WEEKLY TAKING LIDODERM 5 % PATCH 1 PATCH TO SKIN REMOVE AFTER 12 HOURS EXTERNALLY ONCE A DAY TAKING IPRATROPIUM BROMIDE HFA 17 MCG/ACT AEROSOL SOLUTION 2 PUFFS INHALATION FOUR TIMES A DAY TAKING MONTELUKAST SODIUM 10 MG TABLET 1 TABLET IN THE EVENING ORALLY ONCE A DAY TAKING RANITIDINE HCL 150 MG CAPSULE 1 CAPSULE AT BEDTIME ORALLY ONCE A DAY NOT-TAKING COMBIVENT RESPIMAT 20-100 MCG/ACT AEROSOL SOLUTION 1 PUFF INHALATION FOUR TIMES A DAY NOT-TAKING ROBITUSSIN CHEST CONGESTION MEDICATION LIST REVIEWED AND RECONCILED WITH THE PATIENT PAST MEDICAL HISTORY CHEST PAIN ASTHMA HYPERTENSION NEGRITO WITH CPAP GERD LUPUS ARTHRITIS M JO ALLERGIES IMITREX: SEIZURES: ALLERGY IMPLANON: RASH: ALLERGY IV DYE: ANAPHYLAXIS: ALLERGY REVIEW OF SYSTEMS REVIEWED BY: PROVIDER: BEAR TANG . CONSTITUTIONAL: ANY CHANGE IN YOUR MEDICAL CONDITION? NO . CHILLS NO . FEVER NO . INFECTION: DO YOU HAVE NEW INFECTIONS? NO . DO YOU HAVE HISTORY OF MRSA? NO . MUSCULOSKELETAL: ANY NEW PATTERNS OF PAIN OR NUMBNESS? NO . GASTROENTEROLOGY: ANY NEW CHANGE IN BOWEL CONTROL? NO . GENITOURINARY: ANY NEW CHANGE IN BLADDER CONTROL? NO . IS THERE A CHANCE YOU COULD BE ? NO . HEMATOLOGY/LYMPH: DO YOU TAKE ANY BLOOD THINNERS? (FOR EXAMPLE- COUMADIN, PLAVIX, AGGRENOX, PLATEL, PRADAXA, OR XARELTO) NO . WHEN WAS YOUR LAST DOSE? DATE: TIME: . NEUROLOGY: HAVE YOU FALLEN IN THE PAST 6 MONTHS? NO . ANY NEW EXTREMITY NUMBNESS OR WEAKNESS? NO . CARDIOLOGY: DO YOU HAVE A PACEMAKER OR DEFIBRILLATOR? NO . RESPIRATORY: HAVE YOU BEEN SICK IN THE PAST WEEK? NO . FEVER NO . FLU LIKE SYMPTOMS? NO . COUGH NO . INTEGUMENTARY: DO YOU HAVE ANY RASHES OR OPEN SORES? NO . ALLERGIC/IMMUNO: ARE YOU ALLERGIC TO SHELLFISH OR IV DYE? NO . ANY NEW ALLERGIES? NO . PSYCHIATRIC: DO YOU HAVE THOUGHTS OF HURTING YOURSELF OR SOMEONE ELSE? NO . ARE YOU ABUSED, NEGLECTED, OR IN AN UNSAFE ENVIRONMENT? NO . ENDOCRINOLOGY: ARE YOU DIABETIC? NO . OTHER: DO YOU NEED ANY PRESCRIPTIONS? NO . IF YES, PLEASE LIST: ____ . ANY NEW PROBLEMS WITH YOUR MEDICATIONS? NO . WHEN DID YOU LAST EAT? ____ . WHEN DID YOU LAST DRINK? ____ . WHAT DID YOU LAST DRINK? ____ . NAME OF PERSON DRIVING YOU HOME? ____ . DO YOU HAVE ANY OTHER QUESTIONS OR CONCERNS NO . VITAL SIGNS WT 193 LBS, HT 63", BMI 34.18 INDEX, BP 143/87 MM HG, HR 95 /MIN, RR 16 /MIN, TEMP 97.8 F, OXYGEN SAT % 97%, NA INITIALS AW 1219, REVIEWED BY: CM. EXAMINATION GENERAL EXAMINATION: PSYCHALERT , ORIENTED X 3 , APPROPRIATE MOOD AND AFFECT . LUNGS:CLEAR TO AUSCULTATION BILATERALLY, NO WHEEZES OR RHONCHI -. HEART:HEART RATE REGULAR. MUSCULOSKELETAL:MUSCLE STRENGTH TESTING 5/5 BILATERAL UPPER SND LOWER EXTREMITIES. RISES EASILY TO STANDING POSITION BUT STILL WITH BALANCE ISSUES NOTED.MILD TENDERNESS OVER RIGHT SIJ AND RIGHT BUTTUCK.. POSTURE UPRIGHT, GAIT WIDE BASED. . NEUROLOGIC EXAM:CN'S II-XII GROSSLY INTACT FATIGUES BUT NO EPISODES OF SLEEP NOTED TODAY. ASSESSMENTS SACROILIITIS, NOT ELSEWHERE CLASSIFIED - M46.1 (PRIMARY) LUMBAGO WITH SCIATICA, RIGHT SIDE - M54.41 (PRIMARY) OTHER CHRONIC PAIN - G89.29 LUMBAR RADICULOPATHY, RIGHT - M54.16 TREATMENT SACROILIITIS, NOT ELSEWHERE CLASSIFIED INJECTION FACET JOINT/NERVE RANDY/SACRALBEAR ROSSI 10/16/2016 1:25:48 PM > BILATERAL L4-5, L5-S1 THERAPEUTIC BLOCK NOTES: FACET JOINT INJECTION MATERIAL WAS PRINTED. PROCEDURE CODES FA211 ESTABILISHED PATIENT [facility] FACILITY CHARGE DISPOSITION & COMMUNICATION FOLLOW UP AFTER INJECTION (REASON: CHECK AUTH FOR BILATERAL THERAPEUTIC LUMBAR FACET BLOCK AT L4-5 AND L5-S1) ELECTRONICALLY SIGNED BY EMIGDIO JAIN ON 11/01/2016 AT 02:20 PM EDT DISCLAIMER : THIS IS A VISIT SUMMARY EXTRACTED FROM THE [employer] CHART. IT IS NOT A COPY OF THE [employer] PROGRESS NOTE. ANDREW
== END ==
LOC: M PAIN 12:00
PROVIDERS: ATTEND Nurse Practitioner Family
DX: G89.29 Other chronic pain (principal); M46.1 Sacroiliitis, not elsewhere classified; M54.41 Lumbago with sciatica, right side; M54.16 Radiculopathy, lumbar region; J45.909 Unspecified asthma, uncomplicated; D47.2 Monoclonal gammopathy; I10 Essential (primary) hypertension; G47.33 Obstructive sleep apnea (adult) (pediatric); Z91.041 Radiographic dye allergy status; Z88.8 Allergy status to other drugs, medicaments and biological substances; Z79.899 Other long term (current) drug therapy

== ENCOUNTER → 2016-11-06 | Outpatient (CLI) | payer OTHER ==
[2016-11-06 19:05] LABS: ALBUMIN 3.3 GM/DL (3.2-5.2); ALBUMIN/GLOBULIN RATIO 0.77 (1.00-1.93); ALKALINE PHOSPHATASE 58 U/L (45-117); ALT/SGPT 28 U/L (12-78); ANION GAP 8 MEQ/L (8-16); AST/SGOT 18 U/L (15-37); BILIRUBIN,TOTAL 0.3 MG/DL (0.2-1.0); BLOOD UREA NITROGEN 19 MG/DL (7-18); CALCIUM LEVEL 8.9 MG/DL (8.5-10.1); CARBON DIOXIDE LEVEL 23 MEQ/L (21-32); CHLORIDE LEVEL 112 MEQ/L (98-107); CREATININE FOR GFR 0.88 MG/DL (0.55-1.02); GLOMERULAR FILTRATION RATE > 60.0 (>51); GLUCOSE, FASTING 108 MG/DL (70-105); POTASSIUM SERUM 3.9 MEQ/L (3.5-5.1); SODIUM LEVEL 143 MEQ/L (136-145); TOTAL PROTEIN 7.6 GM/DL (6.4-8.2)
[2016-11-06 19:33] LABS: BASO % 0.6 % (0.0-1.0); EOS # 0.1 K/mm3 (0.0-0.50); EOS % 1.3 % (0.0-3.0); LARGE UNSTAINED CELL # 0.1 K/mm3 (0.0-0.4); LARGE UNSTAINED CELL % 1.9 % (0.0-4.0); LYMPH % 38.2 % (24.0-44.0); MEAN CORPUSCULAR HEMOGLOBIN 30.8 pg (27.0-33.0); MEAN CORPUSCULAR HGB CONC 33.6 g/dl (32.0-36.5); MEAN CORPUSCULAR VOLUME 91.8 fl (80.0-96.0); MONO # 0.3 K/mm3 (0.0-0.8); MONO % 4.5 % (0.0-5.0); NEUTROPHILS # 4.1 K/mm3 (1.8-7.7); NEUTROPHILS % 53.5 % (36.0-66.0); PLATELET COUNT, AUTOMATED 262 k/mm3 (150-450); RED CELL DISTRIBUTION WIDTH 13.3 % (11.5-14.5); WHITE BLOOD COUNT 7.6 K/mm3 (4.0-10.0)
--- NOTE | 2016-11-07 09:08 | REP ---
Clinical: Monoclonal gammopathy of undetermined significance (MGUS). Technique: Standard adult bone survey to include AP and lateral views of the calvarium, cervical, thoracic and lumbar spine as well as AP view of the pelvis, bilateral humeri and femurs. Findings: With the exception of mild age-related degenerative changes involving the cervical and mid to lower lumbar spine which include subtle anterior spurring and minimal disc space narrowing as well as hypertrophic facet changes at the lumbar level, the examination is normal for age. No lytic, blastic, sclerotic osseous lesions are appreciated. No fractures are identified. No significant periosteal reaction noted. Impression: 1. Mild and likely age-related degenerative changes involving the mid-cervical and lower lumbar spine. 2. No evidence for significant osseous pathology related to [facility] Signed by Tony Castellanos MD 11/07/2016 08:59 A
[2016-11-09 14:56] LABS: ALBUMIN 3.75 GM/DL (3.29-5.55); ALBUMIN % 49.4 % (55.8-66.1); GAMMA GLOBULIN % 23.3 % (11.1-18.8)
[2016-11-11 00:06] LABS: BETA 2 MICROGLOBULIN 1.3 mg/L (0.6-2.4); FREE KAPPA LIGHT CHAINS SERUM 17.4 mg/L (3.3-19.4); FREE LAMBDA LIGHT CHAINS SERUM 42.4 mg/L (5.7-26.3); KAPPA/LAMBDA RATIO SERUM 0.41 (0.26-1.65)
== END ==
LOC: M LAB 17:44
PROVIDERS: ATTEND Internal Medicine Medical Oncology
DX: D47.2 Monoclonal gammopathy (principal)

== ENCOUNTER → 2016-11-26 | Outpatient (CLI) | payer OTHER ==
--- NOTE | 2016-11-26 13:17 | REP ---
FACET BLOCK: All imaging was reviewed with Dr. Olmos prior to dictation. The portable C-arm is provided in the OR for Dr. Luque for fluoroscopic guidance. Two intraoperative fluoroscopic spot films were obtained using last image hold technology for needle placement verification for bilateral lumbar facet injection. The films are on the PACS system and are available for review. 38 seconds of fluoroscopy time were utilized for this procedure. Reviewed by RAAD Umana 11/26/2016 01:22 PEdited and Signed by Kentrell Olmos MD 11/26/2016 08:01 P
--- NOTE | 2016-12-08 00:51 | ECWPNPC ---
PATIENT NAME: JUSTYNA ALSTON : 1965 GENDER: FEMALE VISIT DATE: 11/26/2016 DISCHARGE DATE: 11/26/16 1235 VISIT LOCKED DATE TIME: PHYSICIAN: ALVA DONOVAN RESOURCE: ALVA DONOVAN REASON FOR APPOINTMENT 1. LUMBAR FACET BLOCK HISTORY OF PRESENT ILLNESS HISTORY OF PRESENT ILLNESS: PAIN THE PATIENT DESCRIBES THE PAIN... FALL RISK SCREENING: SCREENING :NO FALLS IN THE PAST YEAR CURRENT MEDICATIONS TAKING TOPIRAMATE 50 MG TABLET 2 TABLET ORALLY TWICE A DAY, NOTES: 11/26/16614 TAKING INDOMETHACIN 50 MG CAPSULE 4 CAPSULES WITH FOOD OR MILK ORALLY NEEDED, NOTES: NONE LATELY TAKING MODAFINIL 200 MG TABLET 1 TABLET IN THE MORNING ORALLY ONCE A DAY, NOTES: 11/26/16614 TAKING CLOBETASOL PROPIONATE 0.05 % CREAM 1 APPLICATION TO AFFECTED AREA EXTERNALLY TWICE A DAY, NOTES: NONE LATELY TAKING PREMPRO 0.625-2.5 MG TABLET 1 TABLET ORALLY ONCE A DAY, NOTES: 10/2816 TAKING DOXYCYCLINE HYCLATE 100 MG CAPSULE 1 CAPSULE ORALLY EVERY 12 HRS, NOTES: 11/26/16614 TAKING LORATADINE 10 MG TABLET 1 TABLET ORALLY ONCE A DAY, NOTES: 11/26/16 TAKING OMEPRAZOLE 20 MG CAPSULE DELAYED RELEASE 2 CAPSULES ORALLY ONCE A DAY, NOTES: 11/26/16614 TAKING HYDROXYCHLOROQUINE SULFATE 200 MG TABLET 2 TABLET WITH FOOD OR MILK ORALLY TWICE A DAY, NOTES: 11/24/16 TAKING HYDROXYZINE HCL 10 MG TABLET ORALLY NEEDED, NOTES: NONE LATELY TAKING ALBUTEROL SULFATE HFA 108 (90 BASE) MCG/ACT AEROSOL SOLUTION 2 PUFFS NEEDED INHALATION EVERY 4 HRS, NOTES: NONE LATELY TAKING ADVAIR DISKUS 250-50 MCG/DOSE MISCELLANEOUS INHALATION TWICE DAILY, NOTES: 11/26/16614 TAKING VERAPAMIL HCL 240 MG (CO) TABLET EXTENDED RELEASE ORALLY DAILY, NOTES: 11/26/16614 TAKING ACETAMINOPHEN 325 MG TABLET 2 TABLETS NEEDED ORALLY EVERY 6 HRS, NOTES: NONE LATELY TAKING PREVIDENT 1.1 % GEL DENTAL , NOTES: NONE LATELY TAKING FLUTICASONE PROPIONATE (INHAL) 100 MCG/BLIST AEROSOL POWDER BREATH ACTIVATED 1 PUFF INHALATION TWICE A DAY, NOTES: 11/23/16 TAKING DULOXETINE HCL 60 MG CAPSULE DELAYED RELEASE PARTICLES 1 CAPSULE ORALLY ONCE A DAY, NOTES: 11/26/16614 TAKING CELECOXIB 200 MG CAPSULE 1 CAPSULE ORALLY ONCE A DAY, NOTES: 11/26/16614 TAKING CETIRIZINE HCL 10 MG TABLET 1 TABLET ORALLY ONCE A DAY, NOTES: 11/23/16 TAKING TESSALON PERLES 100 MG CAPSULE 1 CAPSULE NEEDED ORALLY THREE TIMES A DAY, NOTES: 11/26/16614 TAKING POTASSIUM CHLORIDE CR 10 MEQ 1 TAB TWICE DAILY, NOTES: 11/23/16 TAKING VITAMIN D (ERGOCALCIFEROL) 37750 UNIT CAPSULE 1 CAPSULE ORALLY WEEKLY, NOTES: 11/22/16 TAKING LIDODERM 5 % PATCH 1 PATCH TO SKIN REMOVE AFTER 12 HOURS EXTERNALLY ONCE A DAY, NOTES: 11/24/16 TAKING IPRATROPIUM BROMIDE HFA 17 MCG/ACT AEROSOL SOLUTION 2 PUFFS INHALATION FOUR TIMES A DAY, NOTES: 11/26/16614 TAKING MONTELUKAST SODIUM 10 MG TABLET 1 TABLET IN THE EVENING ORALLY ONCE A DAY, NOTES: 11/23/16 TAKING RANITIDINE HCL 150 MG CAPSULE 1 CAPSULE AT BEDTIME ORALLY ONCE A DAY, NOTES: 11/23/16 NOT-TAKING COMBIVENT RESPIMAT 20-100 MCG/ACT AEROSOL SOLUTION 1 PUFF INHALATION FOUR TIMES A DAY NOT-TAKING ROBITUSSIN CHEST CONGESTION MEDICATION LIST REVIEWED AND RECONCILED WITH THE PATIENT PAST MEDICAL HISTORY CHEST PAIN ASTHMA HYPERTENSION NEGRITO WITH CPAP GERD LUPUS ARTHRITIS M JO ALLERGIES IMITREX: SEIZURES: ALLERGY IMPLANON: RASH: ALLERGY IV DYE: ANAPHYLAXIS: ALLERGY SURGICAL HISTORY APPENDIX 1992 C SECTION 1995 DYSPLASIA 1990 HERNIA REPAIR 1993 BUNIONECTOMY 1996 UTERAL ABLATION 2008 MULTIPLE INJECTIONS FOR BACK PAIN SOCIAL HISTORY GENERAL: PAIN CLINIC PFS, CLERGY, PUBLIC HEALTH REFERRALS PFS REFERRAL NEEDED?NO CLERGY REFERRAL NEEDED?NO PUBLIC HEALTH REFERRAL NEEDED?NO WAS THE PROVIDER NOTIFIED OF ANY PERTINENT INFO?NO HAS THE PATIENT BEEN EDUCATED REGARDING HIS/HER PLAN OF CARE?YES HAS THE PATIENT BEEN EDUCATED REGARDING PAIN, THE RISK FOR PAIN, THE IMPORTANCE OF EFFECTIVE PAIN MANAGEMENT, AND THE PAIN ASSESSMENT PROCESS?YES PATIENT: ____. HOSPITALIZATION/MAJOR DIAGNOSTIC PROCEDURE FLU LIKE SEIZURES AFTER IMITRIX INJECTION REVIEW OF SYSTEMS REVIEWED BY: PROVIDER: . CONSTITUTIONAL: ANY CHANGE IN YOUR MEDICAL CONDITION? NO . CHILLS NO . FEVER NO . INFECTION: DO YOU HAVE NEW INFECTIONS? NO . DO YOU HAVE HISTORY OF MRSA? NO . MUSCULOSKELETAL: ANY NEW PATTERNS OF PAIN OR NUMBNESS? NO . GASTROENTEROLOGY: ANY NEW CHANGE IN BOWEL CONTROL? NO . GENITOURINARY: ANY NEW CHANGE IN BLADDER CONTROL? NO . IS THERE A CHANCE YOU COULD BE ? NO . HEMATOLOGY/LYMPH: DO YOU TAKE ANY BLOOD THINNERS? (FOR EXAMPLE- COUMADIN, PLAVIX, AGGRENOX, PLATEL, PRADAXA, OR XARELTO) NO . WHEN WAS YOUR LAST DOSE? DATE: TIME: . NEUROLOGY: HAVE YOU FALLEN IN THE PAST 6 MONTHS? NO . ANY NEW EXTREMITY NUMBNESS OR WEAKNESS? NO . CARDIOLOGY: DO YOU HAVE A PACEMAKER OR DEFIBRILLATOR? NO . RESPIRATORY: HAVE YOU BEEN SICK IN THE PAST WEEK? NO . FEVER NO . FLU LIKE SYMPTOMS? NO . COUGH NO . INTEGUMENTARY: DO YOU HAVE ANY RASHES OR OPEN SORES? YES, UNDER LEFT BREAST X 1 WEEK, PT APPLIES CREAM TO RASH WHICH HELPS, NO OPEN AREAS NOTED, PT STATES PCP IS AWARE AND TREATING PT FOR THIS . ALLERGIC/IMMUNO: ARE YOU ALLERGIC TO SHELLFISH OR IV DYE? NO . ANY NEW ALLERGIES? NO . PSYCHIATRIC: DO YOU HAVE THOUGHTS OF HURTING YOURSELF OR SOMEONE ELSE? NO . ARE YOU ABUSED, NEGLECTED, OR IN AN UNSAFE ENVIRONMENT? NO . ENDOCRINOLOGY: ARE YOU DIABETIC? NO . OTHER: DO YOU NEED ANY PRESCRIPTIONS? NO . IF YES, PLEASE LIST: ____ . ANY NEW PROBLEMS WITH YOUR MEDICATIONS? NO . WHEN DID YOU LAST EAT? 11/25/16 2030 . WHEN DID YOU LAST DRINK? 11/26/16 0615 . WHAT DID YOU LAST DRINK? ICE COFFEE . NAME OF PERSON DRIVING YOU HOME? CARMELINA . DO YOU HAVE ANY OTHER QUESTIONS OR CONCERNS NO . VITAL SIGNS WT 193 LBS, HT 63", BMI 34.18 INDEX, BP 128/88 MM HG, HR 94 /MIN, RR 16 /MIN, TEMP 98.3 F, OXYGEN SAT % 100, REVIEWED BY: EM. ASSESSMENTS SPONDYLOSIS OF LUMBAR REGION WITHOUT MYELOPATHY OR RADICULOPATHY - M47.816 (PRIMARY) SPONDYLOSIS OF LUMBOSACRAL REGION WITHOUT MYELOPATHY OR RADICULOPATHY - M47.817 PROCEDURES PN LUMBAR FACET BLOCK THERAPEUTIC PRE PROCEDURE DIAGNOSIS LUMBAR SPONDYLOSIS, LUMBOSACRAL SPONDYLOSIS POST PROCEDURE DIAGNOSIS LUMBAR SPONDYLOSIS, LUMBOSACRAL SPONDYLOSIS PROCEDURE BILATERAL L4-L5 AND BILATERAL L5-S1 LUMBAR FACET THERAPEUTIC BLOCK SURGEON DR. ALVA DONOVAN SQL TECH NONE ANESTHESIA LOCAL PRE PROCEDURE NOTE THE PATIENT HAS A HISTORY OF CHRONIC LOW BACK PAIN. I EVALUATE THE PATIENT AND REVIEWED THE CHART. I WENT OVER THE RISKS, ALTERNATIVES, AND BENEFITS ASSOCIATED WITH THIS PROCEDURE. THE PATIENT WOULD LIKE TO PROCEED AND GIVE CONSENT TO PERFORMED THE PROCEDURE. THE PATIENT DENIES UNEXPLAINABLE WEIGHT LOSS, FEVER, CHILLS, OR NEW CHANGES IN URINARY OR BOWEL CONTROL DESCRIPTION OF PROCEDURE THE PATIENT WAS BROUGHT TO THE PROCEDURE ROOM AND PLACED IN THE PRONE POSITION. THE LUMBOSACRAL AREA WAS CLEANED WITH CHLORAPREP SOLUTION AND DRAPED ASEPTICALLY. THE PROCEDURE WAS DONE UNDER STERILE CONDITIONS. I CHECKED LATERALITY AND THE LEVEL WHERE THE PROCEDURE WAS GOING TO BE PERFORMED WITH THE PATIENT AND THE SUPPORTING STAFF AT THE MOMENT OF THE TIME OUT IN THE PROCEDURE ROOM. UNDER FLUOROSCOPIC GUIDANCE, THE TARGET POINT WAS SELECTED AT THE RIGHT AND LEFT L4-L5 AND RIGHT AND LEFT L5-S1 FACET JOINT. TARGET POINT WAS SELECTED AFTER LATERAL ROTATION AND TILT OF THE MAGNIFIER OF THE C-ARM. LIDOCAINE 0.5% WAS USED TO NUMB THE SKIN AND THE SUBCUTANEOUS TISSUE BELOW IT. SPINAL NEEDLES, 22-GAUGE, WERE ADVANCED UNDER FLUOROSCOPIC GUIDANCE AND FOLLOWING PATIENT FEEDBACK UNTIL THE TARGETS WERE TOUCHED. THE POSITION OF THE NEEDLES WAS VERIFIED WITH AP AND LATERAL VIEWS. AFTER PROPER POSITION OF THE NEEDLES WAS ACHIEVED, A SOLUTION OF 1.9 ML OF BUPIVACAINE 0.125% OF KENALOG 6 MG WAS INJECTED AT EACH SITE. THERE WAS NO EVIDENCE OF BLOOD, PARESTHESIA OR CEREBROSPINAL FLUID DURING THE PROCEDURE. THE PATIENT WAS SENT TO THE RECOVERY ROOM. THE PATIENT WAS MOVING THE EXTREMITIES AND DOING WELL. THERE WAS NO COMPLICATION DURING THE PROCEDURE. FLUOROSCOPY TIME WAS 38 SECONDS POST PROCEDURE NOTE THE PATIENT WILL BE SEEN IN A FOLLOW UP IN THE NEXT FEW WEEKS. INSTRUCTIONS WERE GIVEN, QUESTIONS WERE ANSWERED, AND THE PATIENT EXPRESSED UNDERSTANDING AND AGREES WITH THE PLAN. I, DIDI SALEEM, DOCUMENTED THE ABOVE INFORMATION ACTING A SCRIBE FOR DR. DONOVAN. I HAVE REVIEWED THE ABOVE DOCUMENT, WRITTEN BY DIDI SALTERIBMaury AND I VERIFY THAT IT IS [facility] FACET BLOCK (PAIN)[id number] PROCEDURE CODES 99705 INJ PARAVERT F JNT L/S 1 LEV, MODIFIERS: 50 25668 INJ PARAVERT F JNT L/S 2 LEV, MODIFIERS: 50 6045F RADXPS IN END [id number] PXD DISPOSITION & COMMUNICATION FOLLOW UP 3 WEEKS ELECTRONICALLY SIGNED BY ALVA DONOVAN MD ON 12/07/2016 AT 03:35 PM EDT DISCLAIMER : THIS IS A VISIT SUMMARY EXTRACTED FROM THE [employer] CHART. IT IS NOT A COPY OF THE [employer] PROGRESS NOTE. MTDD
== END ==
LOC: M PAIN 10:30
PROVIDERS: ATTEND Anesthesiology
DX: G89.29 Other chronic pain (principal); M47.816 Spondylosis without myelopathy or radiculopathy, lumbar region; M47.817 Spondylosis without myelopathy or radiculopathy, lumbosacral region; J45.909 Unspecified asthma, uncomplicated; I10 Essential (primary) hypertension; G47.33 Obstructive sleep apnea (adult) (pediatric); K21.9 Gastro-esophageal reflux disease without esophagitis; Z91.041 Radiographic dye allergy status; Z88.8 Allergy status to other drugs, medicaments and biological substances; Z79.1 Long term (current) use of non-steroidal anti-inflammatories (NSAID); Z79.899 Other long term (current) drug therapy
CPT/HCPCS: 64493; 64494; J3301

== ENCOUNTER → 2016-12-25 | Outpatient (CLI) | payer OTHER ==
--- NOTE | 2017-01-25 00:52 | ECWPNPC ---
PATIENT NAME: JUSTYNA ALSTON : 1965 GENDER: FEMALE VISIT DATE: 12/25/2016 DISCHARGE DATE: 12/25/16 1114 VISIT LOCKED DATE TIME: PHYSICIAN: BEAR ROSSI RESOURCE: BEAR ROSSI REASON FOR APPOINTMENT 1. POST THER FACET BLOCCK HISTORY OF PRESENT ILLNESS HISTORY OF PRESENT ILLNESS: PAIN THE PATIENT DESCRIBES THE PAIN... FALL RISK SCREENING: SCREENING :NO FALLS IN THE PAST YEAR TODAY'S VISIT: NOTES: S/P BILATERAL LUMBAR FACET BLOCKS AT L4-5 AND L5-S1 COMPLETED ON 11/26/16. . RATES AIN LEVEL TODAY 3/10 . NOTES A DECREASE IN PAIN IN AREASINCE PROCEDURE HAS BEEN FEELING LIKE THE TISSUE IS PULLING AND TEARING IN THE BACK WITH LIFTING A WEIGHT. STILL WITH SOME PAIN WITH PROLONGED STANDING. HAS BEEN ABLE TO STAND LONGER. . PAST MEDICAL HISTORY CHEST PAIN ASTHMA HYPERTENSION NEGRITO WITH CPAP GERD LUPUS ARTHRITIS M JO ALLERGIES IMITREX: SEIZURES: ALLERGY IMPLANON: RASH: ALLERGY IV DYE: ANAPHYLAXIS: ALLERGY REVIEW OF SYSTEMS REVIEWED BY: PROVIDER: BEAR ROSSI SUPPLIER QUALITY MANAGER . CONSTITUTIONAL: ANY CHANGE IN YOUR MEDICAL CONDITION? YES, [facility] SURGERY WEDNESDAY. . CHILLS NO . FEVER NO . INFECTION: DO YOU HAVE NEW INFECTIONS? NO . DO YOU HAVE HISTORY OF MRSA? NO . MUSCULOSKELETAL: ANY NEW PATTERNS OF PAIN OR NUMBNESS? NO . GASTROENTEROLOGY: ANY NEW CHANGE IN BOWEL CONTROL? NO . GENITOURINARY: ANY NEW CHANGE IN BLADDER CONTROL? NO . IS THERE A CHANCE YOU COULD BE ? NO . HEMATOLOGY/LYMPH: DO YOU TAKE ANY BLOOD THINNERS? (FOR EXAMPLE- COUMADIN, PLAVIX, AGGRENOX, PLATEL, PRADAXA, OR XARELTO) NO . WHEN WAS YOUR LAST DOSE? DATE: TIME: . NEUROLOGY: HAVE YOU FALLEN IN THE PAST 6 MONTHS? NO . ANY NEW EXTREMITY NUMBNESS OR WEAKNESS? NO . SLEEP PROBLEMS NARCOLEPSY . CARDIOLOGY: DO YOU HAVE A PACEMAKER OR DEFIBRILLATOR? NO . RESPIRATORY: HAVE YOU BEEN SICK IN THE PAST WEEK? NO . FEVER NO . FLU LIKE SYMPTOMS? NO . COUGH NO . INTEGUMENTARY: DO YOU HAVE ANY RASHES OR OPEN SORES? NO . ALLERGIC/IMMUNO: ARE YOU ALLERGIC TO SHELLFISH OR IV DYE? NO . ANY NEW ALLERGIES? NO . PSYCHIATRIC: DO YOU HAVE THOUGHTS OF HURTING YOURSELF OR SOMEONE ELSE? NO . ARE YOU ABUSED, NEGLECTED, OR IN AN UNSAFE ENVIRONMENT? NO . ENDOCRINOLOGY: ARE YOU DIABETIC? NO . OTHER: DO YOU NEED ANY PRESCRIPTIONS? NO . IF YES, PLEASE LIST: ____ . ANY NEW PROBLEMS WITH YOUR MEDICATIONS? NO . WHEN DID YOU LAST EAT? ____ . WHEN DID YOU LAST DRINK? ____ . WHAT DID YOU LAST DRINK? ____ . NAME OF PERSON DRIVING YOU HOME? ____ . DO YOU HAVE ANY OTHER QUESTIONS OR CONCERNS YES, SINCE LAST PROCEDURE- CAN NOT LIFT ANYTHING." IT FEELS LIKE IT'S TEARING INSIDE". . VITAL SIGNS WT 193.0 LBS, HT 63", BMI 34.18 INDEX, BP 120/70 MM HG, HR 92 /MIN, RR 16 /MIN, TEMP 97.7 F, OXYGEN SAT % 98%, NA INITIALS TL 1046. EXAMINATION GENERAL EXAMINATION: PSYCHALERT , ORIENTED X 3 . LUNGS:CLEAR TO AUSCULTATION BILATERALLY. HEART:HEART RATE REGULAR. MUSCULOSKELETAL:WALKING ON RIGHT TOES. NO DIFF WITH PLANTAR FLEX/EXT. POINT TENDERNESS OVER RIGHT SACRUM . NEUROLOGIC EXAM:CN'S II-XII GROSSLY INTACT. FALLS ASLEEP IF NOT ACTIVELY ENGAGED. ASSESSMENTS SPONDYLOSIS OF LUMBAR REGION WITHOUT MYELOPATHY OR RADICULOPATHY - M47.816 (PRIMARY) SACROILIITIS, NOT ELSEWHERE CLASSIFIED - M46.1 (PRIMARY) LUMBAGO WITH SCIATICA, RIGHT SIDE - M54.41 (PRIMARY) SPONDYLOSIS OF LUMBOSACRAL REGION WITHOUT MYELOPATHY OR RADICULOPATHY - M47.817 OTHER CHRONIC PAIN - G89.29 LUMBAR RADICULOPATHY, RIGHT - M54.16 TREATMENT SPONDYLOSIS OF LUMBAR REGION WITHOUT MYELOPATHY OR RADICULOPATHY NOTES: REFER BACK TO DR VALE/NEUROLOGY FOR NCS/EMG OF LOWER EXTREMITIES. PROCEDURE CODES FA211 ESTABILISHED PATIENT [facility] CHARGE DISPOSITION & COMMUNICATION FOLLOW UP 1 MONTH (REASON: BACK PAIN) ELECTRONICALLY SIGNED BY EMIGDIO JAIN ON 01/24/2017 AT 08:48 PM EST DISCLAIMER : THIS IS A VISIT SUMMARY EXTRACTED FROM THE [employer] CHART. IT IS NOT A COPY OF THE [employer] PROGRESS NOTE. ANDREW
== END ==
LOC: M PAIN 09:45
PROVIDERS: ATTEND Nurse Practitioner Family
DX: M47.816 Spondylosis without myelopathy or radiculopathy, lumbar region (principal); M46.1 Sacroiliitis, not elsewhere classified; M54.41 Lumbago with sciatica, right side; M47.817 Spondylosis without myelopathy or radiculopathy, lumbosacral region; G89.29 Other chronic pain; M54.16 Radiculopathy, lumbar region; Z88.8 Allergy status to other drugs, medicaments and biological substances; Z91.041 Radiographic dye allergy status; Z86.69 Personal history of other diseases of the nervous system and sense organs; G47.419 Narcolepsy without cataplexy

== ENCOUNTER → 2017-01-14 | Outpatient (CLI) | payer OTHER ==
--- NOTE | 2017-01-15 09:20 | REPMRS ---
Patient History The patient states she had a clinical breast exam in October 2016.Family history of ovarian cancer in maternal aunt. Took estrogen for 10 years. Digital Mammo Screening Bilat: January 14, 2017 - Exam #: [id number] Bilateral CC and MLO view(s) were taken. Technologist: Audelia Cerna, Technologist Prior study comparison: 2013, digital bilateral screening mammo, [facility]. FINDINGS: There are scattered fibroglandular densities. There is no evidence of cancer on this mammogram. ASSESSMENT: BI-RADS/ACR category 2 mammogram. Benign finding(s). Recommendation Routine screening mammogram of both breasts in 1 year (for women over age 40). This mammogram was interpreted with the aid of an FDA-approved computer-aided dectection system. Electronically Signed By: Kentrell Olmos MD 01/15/17 0919
== END ==
LOC: M RAD 17:44
PROVIDERS: ATTEND Physician Assistant
DX: Z12.31 Encounter for screening mammogram for malignant neoplasm of breast (principal)

== ENCOUNTER → 2017-02-08 | Outpatient (CLI) | payer OTHER | LOC: M PAIN 14:30 | DX: M47.816 Spondylosis without myelopathy or radiculopathy, lumbar region (principal); M46.1 Sacroiliitis, not elsewhere classified; M54.41 Lumbago with sciatica, right side; M47.817 Spondylosis without myelopathy or radiculopathy, lumbosacral region; G89.29 Other chronic pain; M54.16 Radiculopathy, lumbar region; I10 Essential (primary) hypertension; Z88.8 Allergy status to other drugs, medicaments and biological substances; Z91.041 Radiographic dye allergy status | CPT/HCPCS: G0463 ==

== ENCOUNTER → 2017-04-14 | Outpatient (CLI) | payer OTHER ==
[~2017-04-14] MED LIST changes: +BUPIVACAINE HCL 0.25% 30 ML VIAL As Ordered; -BUPIVACAINE HCL 0.25% 30 ML VIAL As Ordered ONE; +ISOVUE-M 300 61% 15ML VIAL (Q9967) As Ordered; +LIDOCAINE 1% SDV INJ 30 ML VIAL As Ordered; -LIDOCAINE 1% SDV INJ 30 ML VIAL As Ordered ONE; +TRIAMCINOLONE ACETONIDE SUSP 40 MG/ML VIAL (J3301) As Ordered; -TRIAMCINOLONE ACETONIDE SUSP 40 MG/ML VIAL (J3301) As Ordered ONE; +diazePAM 5 MG TAB As Ordered; -diazePAM 5 MG TAB As Ordered ONE; +oxyCODONE 5MG TAB As Ordered; -oxyCODONE 5MG TAB As Ordered ONE
== END ==
LOC: M PAIN 13:00
DX: G89.29 Other chronic pain (principal); M47.816 Spondylosis without myelopathy or radiculopathy, lumbar region; M47.817 Spondylosis without myelopathy or radiculopathy, lumbosacral region; M54.5 Low back pain; Z79.899 Other long term (current) drug therapy; Z91.041 Radiographic dye allergy status; Z88.8 Allergy status to other drugs, medicaments and biological substances
CPT/HCPCS: J3301

== ENCOUNTER 2017-04-21 10:07 | Emergency (ER) | payer OTHER ==
[2017-04-21 12:10] LABS: BASO # 0.1 10^3/uL (0.0-0.2); BASO % 0.6 % (0.0-1.0); EOS # 0.1 10^3/uL (0.0-0.50); EOS % 0.7 % (0.0-3.0); HEMOGLOBIN 13.9 g/dl (12.0-16.0); IMMATURE GRANULOCYTE % 0.6 % (0-3.0); LYMPH # 3.4 10^3/uL (1.5-4.5); LYMPH % 32.7 % (24.0-44.0); MEAN CORPUSCULAR HEMOGLOBIN 30.5 pg (27.0-33.0); MEAN CORPUSCULAR HGB CONC 34.8 g/dl (32.0-36.5); MEAN CORPUSCULAR VOLUME 87.7 fl (80.0-96.0); MONO # 0.8 10^3/uL (0.0-0.8); NEUTROPHILS # 6.1 10^3/uL (1.8-7.7); NEUTROPHILS % 57.4 % (36.0-66.0); PLATELET COUNT, AUTOMATED 279 10^3/uL (150-450); RED BLOOD COUNT 4.56 10^6/uL (4.00-5.40); RED CELL DISTRIBUTION WIDTH 12.9 % (11.5-14.5); WHITE BLOOD COUNT 10.5 10^3/uL (4.0-10.0)
[2017-04-21] MEDS: ONDANSETRON 4MG/2ML VIAL (J2405) IV (12:30)
[2017-04-21 12:40] LABS: ALBUMIN 3.5 GM/DL (3.2-5.2); ALBUMIN/GLOBULIN RATIO 0.73 (1.00-1.93); ALKALINE PHOSPHATASE 71 U/L (45-117); ALT/SGPT 38 U/L (12-78); ANION GAP 9 MEQ/L (8-16); AST/SGOT 20 U/L (7-37); BILIRUBIN,DIRECT 0.1 MG/DL (0.0-0.2); BILIRUBIN,TOTAL 0.5 MG/DL (0.2-1.0); BLOOD UREA NITROGEN 17 MG/DL (7-18); CALCIUM LEVEL 9.6 MG/DL (8.5-10.1); CARBON DIOXIDE LEVEL 25 MEQ/L (21-32); CHLORIDE LEVEL 106 MEQ/L (98-107); CPK CREATINE PHOSPHOKINASE 130 U/L (26-192); CREATININE FOR GFR 0.77 MG/DL (0.55-1.30); GLOMERULAR FILTRATION RATE > 60.0 (>51); GLUCOSE, FASTING 85 MG/DL (70-100); POTASSIUM SERUM 3.7 MEQ/L (3.5-5.1); SODIUM LEVEL 140 MEQ/L (136-145); TOTAL PROTEIN 8.3 GM/DL (6.4-8.2); TROPONIN I < 0.02 NG/ML (< 0.10)
[2017-04-21 12:41] LABS: MB/CK RELATIVE INDEX 0.76 (< OR =4)
[2017-04-21 14:48] LABS: NT-PRO BNP 27 PG/ML (<125)
== END 2017-04-21 16:31 | disposition home or self-care (01) ==
LOC: M ED 10:07
DX: A08.4 Viral intestinal infection, unspecified (principal); R00.2 Palpitations; I10 Essential (primary) hypertension; K21.9 Gastro-esophageal reflux disease without esophagitis; M32.9 Systemic lupus erythematosus, unspecified; G47.33 Obstructive sleep apnea (adult) (pediatric); G89.29 Other chronic pain; M54.5 Low back pain; D47.2 Monoclonal gammopathy; Z79.899 Other long term (current) drug therapy; Z88.8 Allergy status to other drugs, medicaments and biological substances; Z91.041 Radiographic dye allergy status
CPT/HCPCS: J2405

== ENCOUNTER → 2017-08-23 | Outpatient (CLI) | payer OTHER | LOC: M PAIN 14:30 | DX: M54.12 Radiculopathy, cervical region (principal); M50.20 Other cervical disc displacement, unspecified cervical region; J45.909 Unspecified asthma, uncomplicated; I10 Essential (primary) hypertension; G47.33 Obstructive sleep apnea (adult) (pediatric); K21.9 Gastro-esophageal reflux disease without esophagitis; M32.9 Systemic lupus erythematosus, unspecified; M19.90 Unspecified osteoarthritis, unspecified site; Z79.899 Other long term (current) drug therapy; Z88.8 Allergy status to other drugs, medicaments and biological substances; Z91.041 Radiographic dye allergy status; Z86.2 Personal history of diseases of the blood and blood-forming organs and certain disorders involving the immune mechanism | CPT/HCPCS: G0463 ==

== ENCOUNTER → 2017-09-07 | Outpatient (CLI) | payer OTHER ==
[~2017-09-07] MED LIST changes: -BUPIVACAINE HCL 0.25% 30 ML VIAL As Ordered; -ISOVUE-M 300 61% 15ML VIAL (Q9967) As Ordered; -TRIAMCINOLONE ACETONIDE SUSP 40 MG/ML VIAL (J3301) As Ordered; +methylPREDNISolone SUSP 40 MG/ML (DEPO-medrol) VIAL (J1030) As Ordered
== END ==
LOC: M PAIN 11:30
DX: G89.29 Other chronic pain (principal); M51.16 Intervertebral disc disorders with radiculopathy, lumbar region; J45.909 Unspecified asthma, uncomplicated; I10 Essential (primary) hypertension; G47.33 Obstructive sleep apnea (adult) (pediatric); G47.8 Other sleep disorders; K21.9 Gastro-esophageal reflux disease without esophagitis; M32.9 Systemic lupus erythematosus, unspecified; M19.90 Unspecified osteoarthritis, unspecified site; R01.1 Cardiac murmur, unspecified; Z79.899 Other long term (current) drug therapy; Z88.8 Allergy status to other drugs, medicaments and biological substances; Z91.041 Radiographic dye allergy status
CPT/HCPCS: J1030

== ENCOUNTER → 2017-09-27 | Outpatient (CLI) | payer OTHER | LOC: M PAIN 14:15 | DX: M51.16 Intervertebral disc disorders with radiculopathy, lumbar region (principal); M50.20 Other cervical disc displacement, unspecified cervical region; J45.909 Unspecified asthma, uncomplicated; I10 Essential (primary) hypertension; G47.33 Obstructive sleep apnea (adult) (pediatric); K21.9 Gastro-esophageal reflux disease without esophagitis; M32.9 Systemic lupus erythematosus, unspecified; R01.1 Cardiac murmur, unspecified; G47.419 Narcolepsy without cataplexy; Z79.899 Other long term (current) drug therapy; Z88.8 Allergy status to other drugs, medicaments and biological substances; Z91.041 Radiographic dye allergy status; Z86.2 Personal history of diseases of the blood and blood-forming organs and certain disorders involving the immune mechanism | CPT/HCPCS: G0463 ==

== ENCOUNTER → 2017-10-13 | Outpatient (CLI) | payer OTHER ==
[~2017-10-13] MED LIST changes: +ISOVUE-M 300 61% 15ML VIAL (Q9967) As Ordered
== END ==
LOC: M PAIN 14:30
DX: G89.29 Other chronic pain (principal); M50.10 Cervical disc disorder with radiculopathy, unspecified cervical region; J45.909 Unspecified asthma, uncomplicated; I10 Essential (primary) hypertension; G47.33 Obstructive sleep apnea (adult) (pediatric); K21.9 Gastro-esophageal reflux disease without esophagitis; M19.90 Unspecified osteoarthritis, unspecified site; R01.1 Cardiac murmur, unspecified; Z79.899 Other long term (current) drug therapy; Z88.8 Allergy status to other drugs, medicaments and biological substances; Z91.041 Radiographic dye allergy status; Z87.39 Personal history of other diseases of the musculoskeletal system and connective tissue
CPT/HCPCS: J1030

== ENCOUNTER → 2017-11-29 | Outpatient (CLI) | payer OTHER | LOC: M PAIN 15:00 | DX: M51.16 Intervertebral disc disorders with radiculopathy, lumbar region (principal); M50.20 Other cervical disc displacement, unspecified cervical region; M47.816 Spondylosis without myelopathy or radiculopathy, lumbar region; M47.817 Spondylosis without myelopathy or radiculopathy, lumbosacral region; J45.909 Unspecified asthma, uncomplicated; I10 Essential (primary) hypertension; G47.33 Obstructive sleep apnea (adult) (pediatric); K21.9 Gastro-esophageal reflux disease without esophagitis; M19.90 Unspecified osteoarthritis, unspecified site; R01.1 Cardiac murmur, unspecified; Z79.899 Other long term (current) drug therapy; Z88.8 Allergy status to other drugs, medicaments and biological substances; Z91.041 Radiographic dye allergy status; Z86.2 Personal history of diseases of the blood and blood-forming organs and certain disorders involving the immune mechanism; Z87.39 Personal history of other diseases of the musculoskeletal system and connective tissue; Z86.59 Personal history of other mental and behavioral disorders | CPT/HCPCS: G0463 ==

== ENCOUNTER → 2018-01-13 | Outpatient (CLI) | payer OTHER ==
[~2018-01-13] MED LIST changes: +BUPIVACAINE HCL 0.25% 30 ML VIAL As Ordered; -ISOVUE-M 300 61% 15ML VIAL (Q9967) As Ordered; +TRIAMCINOLONE ACETONIDE SUSP 40 MG/ML VIAL (J3301) As Ordered; -methylPREDNISolone SUSP 40 MG/ML (DEPO-medrol) VIAL (J1030) As Ordered
== END ==
LOC: M PAIN 14:15
DX: G89.29 Other chronic pain (principal); M47.816 Spondylosis without myelopathy or radiculopathy, lumbar region; J45.909 Unspecified asthma, uncomplicated; I10 Essential (primary) hypertension; G47.33 Obstructive sleep apnea (adult) (pediatric); K21.9 Gastro-esophageal reflux disease without esophagitis; M19.90 Unspecified osteoarthritis, unspecified site; Z79.899 Other long term (current) drug therapy; Z88.8 Allergy status to other drugs, medicaments and biological substances; Z91.041 Radiographic dye allergy status; Z86.2 Personal history of diseases of the blood and blood-forming organs and certain disorders involving the immune mechanism; Z86.59 Personal history of other mental and behavioral disorders; Z87.39 Personal history of other diseases of the musculoskeletal system and connective tissue; Z86.79 Personal history of other diseases of the circulatory system
CPT/HCPCS: J3301

== ENCOUNTER → 2018-01-17 | Outpatient (CLI) | payer OTHER | LOC: M RAD 16:51 | DX: Z12.31 Encounter for screening mammogram for malignant neoplasm of breast (principal); Z80.41 Family history of malignant neoplasm of ovary | CPT/HCPCS: 77067 ==

== ENCOUNTER → 2018-03-28 | Outpatient (CLI) | payer OTHER ==
[~2018-03-28] MED LIST changes: +ADV100INH INH; +ARTI99.0 OU; +BOTO200I IM; -BUPIVACAINE HCL 0.25% 30 ML VIAL As Ordered; +CELE1CAP9 PO; +CETI10TA PO; +CYMB60CA3 PO; +DEXT30LI PO; +GUAI1SOL2 PO; +HYDR-643 PO; +HYDR200T3 PO; +IPRAINH INH; +K-TA10TA2 PO; -LIDOCAINE 1% SDV INJ 30 ML VIAL As Ordered; +MODA200T15 PO; +NEXI1CAP4 PO; +NYST50SS SS; +PILO5TAB3 PO; +PROAAER10 INH; +PSEU30TA21 PO; +REFR1DRO8 OU; +TOPA100T12 PO; -TRIAMCINOLONE ACETONIDE SUSP 40 MG/ML VIAL (J3301) As Ordered; +VERA240T14 PO; +VITA200028 PO; +ZOFR4TAB14 PO; +[UNRECOGNIZED DRUG - CODE] PO; -diazePAM 5 MG TAB As Ordered; -oxyCODONE 5MG TAB As Ordered
--- NOTE | 2018-04-09 00:45 | ECWPNPC ---
PATIENT NAME: JUSTYNA ALSTON : 1965 GENDER: FEMALE VISIT DATE: 03/28/2018 DISCHARGE DATE: 03/28/18 1518 VISIT LOCKED DATE TIME: PHYSICIAN: ALEX HUGGINS RESOURCE: ALEX HUGGINS REASON FOR APPOINTMENT 1. POST PROC SW PT HISTORY OF PRESENT ILLNESS HISTORY OF PRESENT ILLNESS: HERE FOR POST PROCEDUR F/U.HAD BILATERAL THERAPEUTIC FACET BLOCK ON 01/13/18.REPORTING SIGNIFICANT REDUCTION IN PAIN THEN PAIN HAS GRADUALLY RETURNED TO BASELINE.CHIEF AREA OF PAIN IS RIGHT LOW BACK WITH RADIATION INTO RIGHT LATERAL THIGH AND CALF.DESCRIBES PAIN BURNING.RATING PAIN VAS 4/10. PAIN THE PATIENT DESCRIBES THE PAIN... FALL RISK SCREENING: SCREENING :NO FALLS IN THE PAST YEAR CURRENT MEDICATIONS TAKING CLOBETASOL PROPIONATE 0.05 % CREAM 1 APPLICATION TO AFFECTED AREA EXTERNALLY TWICE A DAY TAKING DOXYCYCLINE HYCLATE 100 MG CAPSULE 1 CAPSULE ORALLY EVERY 12 HRS TAKING LORATADINE 10 MG TABLET 1 TABLET ORALLY ONCE A DAY TAKING OMEPRAZOLE 20 MG CAPSULE DELAYED RELEASE 2 CAPSULES ORALLY ONCE A DAY TAKING HYDROXYCHLOROQUINE SULFATE 200 MG TABLET 2 TABLET WITH FOOD OR MILK ORALLY TWICE A DAY TAKING HYDROXYZINE HCL 10 MG TABLET ORALLY NEEDED, NOTES: 01-13-18 0900 TAKING ALBUTEROL SULFATE HFA 108 (90 BASE) MCG/ACT AEROSOL SOLUTION 2 PUFFS NEEDED INHALATION EVERY 4 HRS, NOTES: NOT LATELY TAKING ADVAIR DISKUS 250-50 MCG/DOSE MISCELLANEOUS INHALATION TWICE DAILY TAKING VERAPAMIL HCL 240 MG (CO) TABLET EXTENDED RELEASE ORALLY DAILY TAKING ACETAMINOPHEN 325 MG TABLET 2 TABLETS NEEDED ORALLY EVERY 6 HRS, NOTES: NOT LATELY TAKING DULOXETINE HCL 60 MG CAPSULE DELAYED RELEASE PARTICLES 1 CAPSULE ORALLY ONCE A DAY, NOTES: 01-13-18 0800 TAKING CELECOXIB 200 MG CAPSULE 1 CAPSULE ORALLY ONCE A DAY TAKING POTASSIUM CHLORIDE CR 10 MEQ 1 TAB TWICE DAILY TAKING VITAMIN D (ERGOCALCIFEROL) 24853 UNIT CAPSULE 1 CAPSULE ORALLY WEEKLY TAKING LIDODERM 5 % PATCH 1 PATCH TO SKIN REMOVE AFTER 12 HOURS EXTERNALLY ONCE A DAY, NOTES: NO ON NOW TAKING MONTELUKAST SODIUM 10 MG TABLET 1 TABLET IN THE EVENING ORALLY ONCE A DAY TAKING RANITIDINE HCL 150 MG CAPSULE 1 CAPSULE AT BEDTIME ORALLY ONCE A DAY TAKING TOPIRAMATE 50 MG TABLET 2 TABLET ORALLY TWICE A DAY TAKING INDOMETHACIN 50 MG CAPSULE 4 CAPSULES WITH FOOD OR MILK ORALLY NEEDED TAKING MODAFINIL 200 MG TABLET 1 TABLET IN THE MORNING ORALLY ONCE A DAY TAKING CETIRIZINE HCL 10 MG TABLET 1 TABLET ORALLY ONCE A DAY TAKING ACETYLCYSTEINE 600 MG TABLET EXTENDED RELEASE ORALLY BID UNKNOWN FLUTICASONE PROPIONATE (INHAL) 100 MCG/BLIST AEROSOL POWDER BREATH ACTIVATED 1 PUFF INHALATION TWICE A DAY, NOTES: 01-13-18 0900 MEDICATION LIST REVIEWED AND RECONCILED WITH THE PATIENT PAST MEDICAL HISTORY CHEST PAIN ASTHMA HYPERTENSION NEGRITO WITH CPAP GERD LUPUS ARTHRITIS M JO HEART MURMUR UPPER BACK PAIN WITH HERNIATED DIS SCOLIOSOIS NARCOLEPSY UTI LIVER CYST DEGENERATIVE DISC DISEASE ALLERGIES IMITREX: SEIZURES: ALLERGY IMPLANON: RASH: ALLERGY IV DYE: ANAPHYLAXIS: ALLERGY SURGICAL HISTORY APPENDIX 1993 C SECTION 1996 DYSPLASIA 1991 HERNIA REPAIR 1993 BUNIONECTOMY 1996 UTERAL ABLATION 2008 MULTIPLE INJECTIONS FOR BACK PAIN HEART CATH 2012 OR 2013 FAMILY HISTORY FATHER: , DIAGNOSED WITH DIABETES MOTHER: ALIVE, DIAGNOSED WITH HYPERTENSION, HEART DISEASE, OTHER 2 SON(S) , 3 DAUGHTER(S) - HEALTHY. MOM-CRF. SOCIAL HISTORY GENERAL: TOBACCO USE ARE YOU A:NONSMOKER ALCOHOL SCREENING DID YOU HAVE A DRINK CONTAINING ALCOHOL IN THE PAST YEAR?NO POINTS0 INTERPRETATIONNEGATIVE RECREATIONAL DRUG USE DRUG USE?NO CAFFEINE CAFFEINE USE?YES HOW OFTEN AND HOW MUCH? DAILY USE ZOROASTRIANISM [id number] RESTORATIONISM LANGUAGE LANGUAGES SPOKEN:POLISH LEARNING BARRIERS / SPECIAL NEEDS BARRIERS TO LEARNING?NO HEARING IMPAIRED?YES : SLIGHT LEFT EAR HEARING IMPAIRED. VISION IMPAIRED?YES :CORRECTIVE LENSES LEARNING PREFERENCES?NO DOMESTIC VIOLENCE DO YOU FEEL SAFE IN YOUR ENVIRONMENT?YES PAIN CLINIC PFS, CLERGY, PUBLIC HEALTH REFERRALS PFS REFERRAL NEEDED?NO CLERGY REFERRAL NEEDED?NO PUBLIC HEALTH REFERRAL NEEDED?NO WAS THE PROVIDER NOTIFIED OF ANY PERTINENT INFO?NO N/A HAS THE PATIENT BEEN EDUCATED REGARDING HIS/HER PLAN OF CARE?YES HAS THE PATIENT BEEN EDUCATED REGARDING PAIN, THE RISK FOR PAIN, THE IMPORTANCE OF EFFECTIVE PAIN MANAGEMENT, AND THE PAIN ASSESSMENT PROCESS?YES ADVANCE DIRECTIVE ADVANCE DIRECTIVE DISCUSSED WITH PATIENT:YES HCP - CARMELINA SEYMOURMONROE () REVIEWED WITH PATIENT 11/29/17 5516 JS. HOSPITALIZATION/MAJOR DIAGNOSTIC PROCEDURE FLU LIKE SEIZURES AFTER IMITRIX INJECTION SURGERIES CHICKEN POX AN ADULT PNEUMONIA/FLUID RETENTION REVIEW OF SYSTEMS REVIEWED BY: PROVIDER: ALEX TANG . CONSTITUTIONAL: ANY CHANGE IN YOUR MEDICAL CONDITION? NO . CHILLS NO . FEVER NO . INFECTION: DO YOU HAVE NEW INFECTIONS? NO . DO YOU HAVE HISTORY OF MRSA? NO . MUSCULOSKELETAL: ANY NEW PATTERNS OF PAIN OR NUMBNESS? NO . GASTROENTEROLOGY: ANY NEW CHANGE IN BOWEL CONTROL? NO . GENITOURINARY: ANY NEW CHANGE IN BLADDER CONTROL? NO . IS THERE A CHANCE YOU COULD BE ? NO . HEMATOLOGY/LYMPH: DO YOU TAKE ANY BLOOD THINNERS? (FOR EXAMPLE- COUMADIN, PLAVIX, AGGRENOX, PLATEL, PRADAXA, OR XARELTO) NO . WHEN WAS YOUR LAST DOSE? DATE: TIME: . NEUROLOGY: HAVE YOU FALLEN IN THE PAST 12 MONTHS? NO . ANY NEW EXTREMITY NUMBNESS OR WEAKNESS? NO . CARDIOLOGY: DO YOU HAVE A PACEMAKER OR DEFIBRILLATOR? NO . RESPIRATORY: HAVE YOU BEEN SICK IN THE PAST WEEK? NO . FEVER NO . FLU LIKE SYMPTOMS? NO . COUGH NO . INTEGUMENTARY: DO YOU HAVE ANY RASHES OR OPEN SORES? NO . ALLERGIC/IMMUNO: ARE YOU ALLERGIC TO IV DYE? YES . ANY NEW ALLERGIES? NO . PSYCHIATRIC: DO YOU HAVE THOUGHTS OF HURTING YOURSELF OR SOMEONE ELSE? NO . ARE YOU ABUSED, NEGLECTED, OR IN AN UNSAFE ENVIRONMENT? NO . ENDOCRINOLOGY: ARE YOU DIABETIC? NO . OTHER: DO YOU NEED ANY PRESCRIPTIONS? NO . IF YES, PLEASE LIST: ____ . ANY NEW PROBLEMS WITH YOUR MEDICATIONS? NO . WHEN DID YOU LAST EAT? ____ . WHEN DID YOU LAST DRINK? ____ . WHAT DID YOU LAST DRINK? ____ . NAME OF PERSON DRIVING YOU HOME? ____ . DO YOU HAVE ANY OTHER QUESTIONS OR CONCERNS NO . VITAL SIGNS WT 199.8 LBS, HT 63", BMI 35.39 INDEX, BP 130/79 MM HG, HR 96 /MIN, RR 18 /MIN, TEMP 97.0 F, OXYGEN SAT % 98%, SAFE IN ENV? (Y/N) YES, NA INITIALS AW 1409, REVIEWED BY: SHELDON. EXAMINATION GENERAL EXAMINATION: GENERAL APPEARANCE:AWAKE,ALERT ,PLEAASANT . PSYCHAFFECT NORMAL . LUNGS:LUNG [place] ARE CLEAR TO AUSCULTATION BILATERALLY. GOOD MOVEMENT OF AIR . HEART:S1, S2 IN A REGULAR RATE AND RHYTHM. NO SIGNIFICANT MURMURS, RUBS OR GALLOPS NOTED . LUMBAR SACRAL SPINEPALPATION:TENDER OVER RIGHT L4/5-L5/S1 LUMBAR FACETS WITH FACET LOADING. . DIAGNOSTIC TESTS REVIEWEDMRI L/S SPINE-04/21/16. ASSESSMENTS SPONDYLOSIS OF LUMBOSACRAL REGION WITHOUT MYELOPATHY OR RADICULOPATHY - M47.817 (PRIMARY) TREATMENT SPONDYLOSIS OF LUMBOSACRAL REGION WITHOUT MYELOPATHY OR RADICULOPATHY NOTES: RIGHT L4/5-L5/S1 DIAGNOSTIC BLOCK#1. PROCEDURE CODES FA211 ESTABILISHED PATIENT [facility] CHARGE DISPOSITION & COMMUNICATION FOLLOW UP POST (REASON: RIGHT L4/5-L5/S1 DIAGNOSTIC BLOCK#1) ELECTRONICALLY SIGNED BY CLYDE CARROLL ON 04/08/2018 AT 03:43 PM EST DISCLAIMER : THIS IS A VISIT SUMMARY EXTRACTED FROM THE [employer] CHART. IT IS NOT A COPY OF THE [employer] PROGRESS NOTE. ANDREW
== END ==
LOC: M PAIN 13:45
PROVIDERS: ATTEND Nurse Practitioner Family
DX: M47.817 Spondylosis without myelopathy or radiculopathy, lumbosacral region (principal); J45.909 Unspecified asthma, uncomplicated; I10 Essential (primary) hypertension; G47.33 Obstructive sleep apnea (adult) (pediatric); K21.9 Gastro-esophageal reflux disease without esophagitis; M19.90 Unspecified osteoarthritis, unspecified site; E66.9 Obesity, unspecified; Z68.35 Body mass index [BMI] 35.0-35.9, adult; Z79.899 Other long term (current) drug therapy; Z88.8 Allergy status to other drugs, medicaments and biological substances; Z91.041 Radiographic dye allergy status; Z87.39 Personal history of other diseases of the musculoskeletal system and connective tissue; Z87.891 Personal history of nicotine dependence

== ENCOUNTER → 2018-05-17 | Outpatient (CLI) | payer OTHER ==
[~2018-05-17] MED LIST changes: +BUPIVACAINE HCL 0.25% 30 ML VIAL As Ordered ONE; +LIDOCAINE 1% SDV INJ 30 ML VIAL As Ordered ONE
--- NOTE | 2018-05-17 17:00 | REP ---
Partial lumbar spine series: Four views . History: Injection procedure for pain. 37 seconds of fluoroscopy time is reported. Findings: A sequence of four fluoroscopically obtained last image hold procedural spot radiographs of the lumbar spine document needle position and contrast injection associated with injection procedure. Electronically Signed by Derek Hernandez MD 05/17/2018 04:52 P
--- NOTE | 2018-05-27 01:21 | ECWPNPC ---
PATIENT NAME: JUSTYNA ALSTON : 1965 GENDER: FEMALE VISIT DATE: 05/17/2018 DISCHARGE DATE: 05/17/18 1650 VISIT LOCKED DATE TIME: PHYSICIAN: ALVA DONOVAN MD RESOURCE: ALVA DONOVAN MD REASON FOR APPOINTMENT 1. BILAT L4/5-L5/S1 DIAGNOSTIC BLOCK#1 HISTORY OF PRESENT ILLNESS HISTORY OF PRESENT ILLNESS: PAIN THE PATIENT DESCRIBES THE PAIN... FALL RISK SCREENING: SCREENING : NO FALLS IN THE PAST YEAR. CURRENT MEDICATIONS TAKING CLOBETASOL PROPIONATE 0.05 % CREAM 1 APPLICATION TO AFFECTED AREA EXTERNALLY TWICE A DAY, NOTES: 629 TAKING DOXYCYCLINE HYCLATE 100 MG CAPSULE 1 CAPSULE ORALLY EVERY 12 HRS, NOTES: 629 TAKING LORATADINE 10 MG TABLET 1 TABLET ORALLY ONCE A DAY, NOTES: 629 TAKING HYDROXYCHLOROQUINE SULFATE 200 MG TABLET 2 TABLET WITH FOOD OR MILK ORALLY TWICE A DAY, NOTES: 05/14/18 TAKING HYDROXYZINE HCL 10 MG TABLET ORALLY NEEDED, NOTES: 629 TAKING ALBUTEROL SULFATE HFA 108 (90 BASE) MCG/ACT AEROSOL SOLUTION 2 PUFFS NEEDED INHALATION EVERY 4 HRS, NOTES: NONE RECENTLY TAKING ADVAIR DISKUS 250-50 MCG/DOSE MISCELLANEOUS INHALATION TWICE DAILY, NOTES: 629 TAKING VERAPAMIL HCL 240 MG (CO) TABLET EXTENDED RELEASE ORALLY DAILY, NOTES: 629 TAKING ACETAMINOPHEN 325 MG TABLET 2 TABLETS NEEDED ORALLY EVERY 6 HRS, NOTES: NONE RECENTLY TAKING DULOXETINE HCL 60 MG CAPSULE DELAYED RELEASE PARTICLES 1 CAPSULE ORALLY ONCE A DAY, NOTES: 629 TAKING CELECOXIB 200 MG CAPSULE 1 CAPSULE ORALLY ONCE A DAY, NOTES: 629 TAKING POTASSIUM CHLORIDE CR 10 MEQ 1 TAB TWICE DAILY, NOTES: 629 TAKING VITAMIN D (ERGOCALCIFEROL) 46676 UNIT CAPSULE 1 CAPSULE ORALLY WEEKLY, NOTES: 05/15/18 TAKING LIDODERM 5 % PATCH 1 PATCH TO SKIN REMOVE AFTER 12 HOURS EXTERNALLY ONCE A DAY, NOTES: WEEKS AGO TAKING MONTELUKAST SODIUM 10 MG TABLET 1 TABLET IN THE EVENING ORALLY ONCE A DAY, NOTES: 05/16/182229 TAKING RANITIDINE HCL 150 MG CAPSULE 1 CAPSULE AT BEDTIME ORALLY ONCE A DAY, NOTES: 05/16/182229 TAKING TOPIRAMATE 50 MG TABLET 2 TABLET ORALLY TWICE A DAY, NOTES: 629 TAKING INDOMETHACIN 50 MG CAPSULE 4 CAPSULES WITH FOOD OR MILK ORALLY NEEDED, NOTES: WEEK AGO TAKING MODAFINIL 200 MG TABLET 1 TABLET IN THE MORNING ORALLY ONCE A DAY, NOTES: 629 TAKING CETIRIZINE HCL 10 MG TABLET 1 TABLET ORALLY ONCE A DAY, NOTES: 629 TAKING ACETYLCYSTEINE 600 MG TABLET EXTENDED RELEASE ORALLY BID, NOTES: 05/13/18 TAKING VOLTAREN 1 % GEL DIRECTED EXTERNALLY , NOTES: 05/14/18 TAKING FLUTICASONE PROPIONATE (INHAL) 100 MCG/BLIST AEROSOL POWDER BREATH ACTIVATED 1 PUFF INHALATION TWICE A DAY, NOTES: 05/15/18 NOT-TAKING OMEPRAZOLE 20 MG CAPSULE DELAYED RELEASE 2 CAPSULES ORALLY ONCE A DAY MEDICATION LIST REVIEWED AND RECONCILED WITH THE PATIENT PAST MEDICAL HISTORY CHEST PAIN ASTHMA HYPERTENSION NEGRITO WITH CPAP GERD LUPUS ARTHRITIS M JO HEART MURMUR UPPER BACK PAIN WITH HERNIATED DIS SCOLIOSOIS NARCOLEPSY UTI LIVER CYST DEGENERATIVE DISC DISEASE ALLERGIES IMITREX: SEIZURES - ALLERGY IMPLANON: RASH - ALLERGY IV DYE: ANAPHYLAXIS - ALLERGY SURGICAL HISTORY APPENDIX 1992 C SECTION 1995 DYSPLASIA 1990 HERNIA REPAIR 1993 BUNIONECTOMY 1996 UTERAL ABLATION 2008 MULTIPLE INJECTIONS FOR BACK PAIN HEART CATH 2012 OR 2013 FAMILY HISTORY FATHER: , DIAGNOSED WITH DIABETES MOTHER: ALIVE, HYPERTENSION, HEART DISEASE, OTHER 2 SON(S) , 3 DAUGHTER(S) - HEALTHY. MOM-CRF. SOCIAL HISTORY GENERAL: TOBACCO USE ARE YOU A:NONSMOKER LATEX QUESTIONNAIRE LATEX ALLERGY : HAVE YOU EVER DEVELOPED ANY TYPE OF REACTION AFTER HANDLING LATEX PRODUCTS SUCH RUBBER GLOVES, CONDOMS, DIAPHRAGMS, BALLOONS, SOCKS, OR UNDERWEAR?NO LATEX ALLERGY : HAVE YOU EVER DEVELOPED ANY TYPE OF REACTION DURING OR AFTER DENTAL APPOINTMENT, VAGINAL/RECTAL EXAMINATION, SURGICAL PROCEDURE, OR ANY OTHER EXPOSURE?NO LATEX RISK : HAVE YOU EVER HAD ANY DIFFICULTY BREATHING OR HIVES AFTER EATING OR HANDLING ANY FRUITS, OR VEGETABLES; SUCH KIWI, BANANAS, STONE FRUITS, OR CHESTNUTSNO LATEX RISK : DO YOU HAVE A PREVIOUS PERSONAL HISTORY OF MORE THAN NINE SURGERIES, SPINA BIFIDA, OR REPEATED CATHERTIZATIONS? NO LATEX RISK : ARE YOU FREQUENTLY EXPOSED TO LATEX PRODUCTS IN YOUR OCCUPATION?NO DATE ASKED : 05/17/2018 ALCOHOL SCREENING DID YOU HAVE A DRINK CONTAINING ALCOHOL IN THE PAST YEAR?NO POINTS0 INTERPRETATIONNEGATIVE RECREATIONAL DRUG USE DRUG USE?NO CAFFEINE CAFFEINE USE?YES HOW OFTEN AND HOW MUCH? DAILY USE TENRIISM [id number] BAPTISM LANGUAGE LANGUAGES SPOKEN:PANAMANIAN LEARNING BARRIERS / SPECIAL NEEDS BARRIERS TO LEARNING?NO HEARING IMPAIRED?YES : SLIGHT LEFT EAR HEARING IMPAIRED. VISION IMPAIRED?YES :CORRECTIVE LENSES LEARNING PREFERENCES?NO DOMESTIC VIOLENCE DO YOU FEEL SAFE IN YOUR ENVIRONMENT?YES MARITAL STATUS: . OTHERS AT HOME: SPOUSE. PAIN CLINIC PFS, CLERGY, PUBLIC HEALTH REFERRALS PFS REFERRAL NEEDED?NO CLERGY REFERRAL NEEDED?NO PUBLIC HEALTH REFERRAL NEEDED?NO WAS THE PROVIDER NOTIFIED OF ANY PERTINENT INFO?NO N/A HAS THE PATIENT BEEN EDUCATED REGARDING HIS/HER PLAN OF CARE?YES HAS THE PATIENT BEEN EDUCATED REGARDING PAIN, THE RISK FOR PAIN, THE IMPORTANCE OF EFFECTIVE PAIN MANAGEMENT, AND THE PAIN ASSESSMENT PROCESS?YES ADVANCE DIRECTIVE ADVANCE DIRECTIVE DISCUSSED WITH PATIENT:YES HCP - CARMELINA ALSTON () REVIEWED WITH PATIENT 11/29/17 1526 JSREVIEWED WITH PATIENT 05/17/18 1438 JS. HOSPITALIZATION/MAJOR DIAGNOSTIC PROCEDURE FLU LIKE SEIZURES AFTER IMITRIX INJECTION SURGERIES CHICKEN POX AN ADULT PNEUMONIA/FLUID RETENTION REVIEW OF SYSTEMS REVIEWED BY: PROVIDER: . CONSTITUTIONAL: ANY CHANGE IN YOUR MEDICAL CONDITION? NO . CHILLS NO . FEVER NO . INFECTION: DO YOU HAVE NEW INFECTIONS? NO . DO YOU HAVE HISTORY OF MRSA? NO . MUSCULOSKELETAL: ANY NEW PATTERNS OF PAIN OR NUMBNESS? NO . GASTROENTEROLOGY: ANY NEW CHANGE IN BOWEL CONTROL? NO . GENITOURINARY: ANY NEW CHANGE IN BLADDER CONTROL? NO . IS THERE A CHANCE YOU COULD BE ? NO . HEMATOLOGY/LYMPH: DO YOU TAKE ANY BLOOD THINNERS? (FOR EXAMPLE- COUMADIN, PLAVIX, AGGRENOX, PLATEL, PRADAXA, OR XARELTO) NO . WHEN WAS YOUR LAST DOSE? DATE: TIME: . NEUROLOGY: HAVE YOU FALLEN IN THE PAST 12 MONTHS? NO . ANY NEW EXTREMITY NUMBNESS OR WEAKNESS? NO . CARDIOLOGY: DO YOU HAVE A PACEMAKER OR DEFIBRILLATOR? NO . RESPIRATORY: HAVE YOU BEEN SICK IN THE PAST WEEK? NO . FEVER NO . FLU LIKE SYMPTOMS? NO . COUGH NO . INTEGUMENTARY: DO YOU HAVE ANY RASHES OR OPEN SORES? NO . ALLERGIC/IMMUNO: ARE YOU ALLERGIC TO IV DYE? YES . ANY NEW ALLERGIES? NO . PSYCHIATRIC: DO YOU HAVE THOUGHTS OF HURTING YOURSELF OR SOMEONE ELSE? NO . ARE YOU ABUSED, NEGLECTED, OR IN AN UNSAFE ENVIRONMENT? NO . ENDOCRINOLOGY: ARE YOU DIABETIC? NO . OTHER: DO YOU NEED ANY PRESCRIPTIONS? NO . IF YES, PLEASE LIST: ____ . ANY NEW PROBLEMS WITH YOUR MEDICATIONS? NO . WHEN DID YOU LAST EAT? ____05/17/18 0630 . WHEN DID YOU LAST DRINK? ____05/17/18 1000 . WHAT DID YOU LAST DRINK? ____WATER . NAME OF PERSON DRIVING YOU HOME? ____TYRONE () . DO YOU HAVE ANY OTHER QUESTIONS OR CONCERNS NO . VITAL SIGNS WT 202.0 LBS, HT 63", BMI 35.78 INDEX, BP 136/91 MM HG, HR 81 /MIN, RR 18 /MIN, TEMP 96.7 F, OXYGEN SAT % 99%, SAFE IN ENV? (Y/N) YES, NA INITIALS SC 14:27, REVIEWED BY: RHONA. ASSESSMENTS SPONDYLOSIS OF LUMBAR REGION WITHOUT MYELOPATHY OR RADICULOPATHY - M47.816 (PRIMARY) SPONDYLOSIS OF LUMBOSACRAL REGION WITHOUT MYELOPATHY OR RADICULOPATHY - M47.817 TREATMENT SPONDYLOSIS OF LUMBOSACRAL REGION WITHOUT MYELOPATHY OR RADICULOPATHY SMC FACET BLOCK (PAIN)[id number] PROCEDURES PN LUMBAR FACET BLOCK DIAGNOSTIC PRE PROCEDURE DIAGNOSIS LUMBAR SPONDYLOSIS, LUMBOSACRAL SPONDYLOSIS POST PROCEDURE DIAGNOSIS LUMBAR SPONDYLOSIS, LUMBOSACRAL SPONDYLOSIS PROCEDURE BILATERAL L4-L5 AND BILATERAL L5-S1 FACET BLOCK DIAGNOSTIC NUMBER [address] ALVA DONOVAN COUNSELOR EDUCATION PROFESSOR NONE ANESTHESIA LOCAL PRE PROCEDURE NOTE THE PATIENT WITH HISTORY OF CHRONIC LOW BACK PAIN. I EVALUATED THE PATIENT AND REVIEWED THE CHART. I WENT OVER THE RISKS, ALTERNATIVES, AND BENEFITS ASSOCIATED WITH THIS PROCEDURE. THE PATIENT WOULD LIKE TO PROCEED AND GAVE CONSENT TO PERFORM THE PROCEDURE. AGREED WITH THE PATIENT WE ARE DOING THIS PROCEDURE TO DETERMINE IF THE PATIENT IS A CANDIDATE FOR A RADIOFREQUENCY ABLATION OF THE FACETS JOINTS. THE PATIENT DENIES UNEXPLAINABLE WEIGHT LOSS, FEVER, CHILLS, OR NEW CHANGES IN URINARY OR BOWEL CONTROL DESCRIPTION OF PROCEDURE THE PATIENT WAS BROUGHT TO THE PROCEDURE ROOM AND PLACED IN THE PRONE POSITION. THE LUMBOSACRAL AREA WAS CLEANED WITH CHLORAPREP SOLUTION AND DRAPED ASEPTICALLY. THE PROCEDURE WAS DONE UNDER STERILE CONDITIONS. I CHECKED LATERALITY AND THE LEVEL WHERE THE PROCEDURE WAS GOING TO BE PERFORMED WITH THE PATIENT AND THE SUPPORTING STAFF AT THE MOMENT OF THE TIME OUT IN THE PROCEDURE ROOM. UNDER FLUOROSCOPIC GUIDANCE, TARGETS WERE SELECTED AT THE INTERSECTION OF THE RIGHT AND LEFT TRANSVERSE PROCESS OF L4, L5 AND ALA OF S1 WITH ITS RESPECTIVE SUPERIOR ARTICULAR PROCESS. LIDOCAINE WAS USED TO NUMB THE SKIN AND THE SUBCUTANEOUS TISSUE BELOW IT. SPINAL NEEDLE, 22-GAUGE WAS ADVANCED UNDER FLUOROSCOPIC GUIDANCE AND FOLLOWING PATIENT FEEDBACK UNTIL THE TARGETS WERE REACHED. POSITION OF THE NEEDLES WAS VERIFIED WITH AP AND LATERAL VIEWS. NO DYE WAS USED. AFTER PROPER POSITION OF THE NEEDLES WAS ACHIEVED, A SOLUTION OF 0.4 ML OF BUPIVACAINE 0.25% WAS INJECTED AT EACH SITE. THERE WAS NO EVIDENCE OF BLOOD, PARESTHESIA OR CEREBROSPINAL FLUID DURING THE PROCEDURE. THE PATIENT WAS SENT TO THE RECOVERY ROOM. THE PATIENT WAS MOVING THE EXTREMITIES AND DOING WELL. THERE WAS NO COMPLICATION DURING THE PROCEDURE. FLUOROSCOPY TIME WAS 37 SECONDS POST PROCEDURE NOTE THE PATIENT WILL DOCUMENT HIS PAIN LEVEL AND RESPONSE TO THIS PROCEDURE EVERY 30 MINUTES. THE PATIENT WILL BE SEEN IN A FOLLOW UP IN THE NEXT FEW WEEKS. FURTHER DETERMINATION FOR HIS CASE WILL BE DONE AT THE NEXT VISIT. INSTRUCTIONS WERE GIVEN, QUESTIONS WERE ANSWERED, AND THE PATIENT EXPRESSED UNDERSTANDING AND AGREED WITH THE PLAN. I, CHANI BALL, DOCUMENTED THE ABOVE INFORMATION ACTING A SCRIBE FOR DR. DONOVAN. I HAVE REVIEWED THE ABOVE DOCUMENT, WRITTEN BY CHANI SALTERIBMaury AND I VERIFY THAT IT IS ACCURATE. PROCEDURE CODES 6045F RADXPS IN END [id number] PXD [id number] INJ PARAVERT F JNT L/S 1 LEV, MODIFIERS: 50 [id number] INJ PARAVERT F JNT L/S 2 LEV, MODIFIERS: 50 DISPOSITION & COMMUNICATION FOLLOW UP 3 WEEKS ELECTRONICALLY SIGNED BY ALVA DONOVAN MD, MD ON 05/26/2018 AT 10:23 AM EDT DISCLAIMER : THIS IS A VISIT SUMMARY EXTRACTED FROM THE [employer] CHART. IT IS NOT A COPY OF THE [employer] PROGRESS NOTE. MTDD
== END ==
LOC: M PAIN 13:45
PROVIDERS: ATTEND Anesthesiology
DX: G89.29 Other chronic pain (principal); M47.816 Spondylosis without myelopathy or radiculopathy, lumbar region; M47.817 Spondylosis without myelopathy or radiculopathy, lumbosacral region; J45.909 Unspecified asthma, uncomplicated; I10 Essential (primary) hypertension; G47.33 Obstructive sleep apnea (adult) (pediatric); M19.90 Unspecified osteoarthritis, unspecified site; Z79.899 Other long term (current) drug therapy; Z88.8 Allergy status to other drugs, medicaments and biological substances; Z91.041 Radiographic dye allergy status; Z86.79 Personal history of other diseases of the circulatory system; Z87.448 Personal history of other diseases of urinary system

== ENCOUNTER → 2018-07-01 | Outpatient (CLI) | payer OTHER ==
[~2018-07-01] MED LIST changes: -BUPIVACAINE HCL 0.25% 30 ML VIAL As Ordered ONE; -LIDOCAINE 1% SDV INJ 30 ML VIAL As Ordered ONE; -VERA240T14 PO; +VERA240T3 PO
--- NOTE | 2018-07-15 01:42 | ECWPNPC ---
PATIENT NAME: JUSTYNA ALSTON : 1965 GENDER: FEMALE VISIT DATE: 07/01/2018 DISCHARGE DATE: 07/01/18 1531 VISIT LOCKED DATE TIME: PHYSICIAN: ALEX HUGGINS RESOURCE: ALEX HUGGINS REASON FOR APPOINTMENT 1. POST FB HISTORY OF PRESENT ILLNESS HISTORY OF PRESENT ILLNESS: HERE FOR POST PROCEDURE F/U.HAD RIGHT L4/5-L5/S1 DX BLOCK ON 05/17/18.REPORTING 24 HR REDUCTION IN PAIN THEN PAIN RETURNED TO BASELINE.RATING PAIN VAS 6/10.PAIN IS ACROSS LOW BACK WITH RADIATION INTO RIGHT HIP.DESCRIBES PAIN CONTINUOUS AND ACHING. PAIN THE PATIENT DESCRIBES THE PAIN... FALL RISK SCREENING: SCREENING :NO FALLS REPORTED IN THE LAST YEAR CURRENT MEDICATIONS TAKING CLOBETASOL PROPIONATE 0.05 % CREAM 1 APPLICATION TO AFFECTED AREA EXTERNALLY TWICE A DAY TAKING DOXYCYCLINE HYCLATE 100 MG CAPSULE 1 CAPSULE ORALLY EVERY 12 HRS TAKING LORATADINE 10 MG TABLET 1 TABLET ORALLY ONCE A DAY TAKING HYDROXYCHLOROQUINE SULFATE 200 MG TABLET 2 TABLET WITH FOOD OR MILK ORALLY TWICE A DAY TAKING HYDROXYZINE HCL 10 MG TABLET ORALLY NEEDED TAKING ALBUTEROL SULFATE HFA 108 (90 BASE) MCG/ACT AEROSOL SOLUTION 2 PUFFS NEEDED INHALATION EVERY 4 HRS TAKING ADVAIR DISKUS 250-50 MCG/DOSE MISCELLANEOUS INHALATION TWICE DAILY TAKING VERAPAMIL HCL 240 MG (CO) TABLET EXTENDED RELEASE ORALLY DAILY TAKING ACETAMINOPHEN 325 MG TABLET 2 TABLETS NEEDED ORALLY EVERY 6 HRS TAKING DULOXETINE HCL 60 MG CAPSULE DELAYED RELEASE PARTICLES 1 CAPSULE ORALLY ONCE A DAY TAKING CELECOXIB 200 MG CAPSULE 1 CAPSULE ORALLY ONCE A DAY TAKING POTASSIUM CHLORIDE CR 10 MEQ 1 TAB TWICE DAILY TAKING VITAMIN D (ERGOCALCIFEROL) 66098 UNIT CAPSULE 1 CAPSULE ORALLY WEEKLY TAKING LIDODERM 5 % PATCH 1 PATCH TO SKIN REMOVE AFTER 12 HOURS EXTERNALLY ONCE A DAY TAKING MONTELUKAST SODIUM 10 MG TABLET 1 TABLET IN THE EVENING ORALLY ONCE A DAY TAKING RANITIDINE HCL 150 MG CAPSULE 1 CAPSULE AT BEDTIME ORALLY ONCE A DAY TAKING TOPIRAMATE 50 MG TABLET 2 TABLET ORALLY PT TAKING REDUCED AMOUNT 25MG PER DOSE TAKING INDOMETHACIN 50 MG CAPSULE 4 CAPSULES WITH FOOD OR MILK ORALLY NEEDED TAKING MODAFINIL 200 MG TABLET 1 TABLET IN THE MORNING ORALLY ONCE A DAY TAKING CETIRIZINE HCL 10 MG TABLET 1 TABLET ORALLY ONCE A DAY TAKING ACETYLCYSTEINE 600 MG TABLET EXTENDED RELEASE ORALLY BID TAKING VOLTAREN 1 % GEL DIRECTED EXTERNALLY TAKING FLUTICASONE PROPIONATE (INHAL) 100 MCG/BLIST AEROSOL POWDER BREATH ACTIVATED 1 PUFF INHALATION TWICE A DAY NOT-TAKING OMEPRAZOLE 20 MG CAPSULE DELAYED RELEASE 2 CAPSULES ORALLY ONCE A DAY MEDICATION LIST REVIEWED AND RECONCILED WITH THE PATIENT PAST MEDICAL HISTORY CHEST PAIN ASTHMA HYPERTENSION NEGRITO WITH CPAP GERD LUPUS ARTHRITIS M JO HEART MURMUR UPPER BACK PAIN WITH HERNIATED DIS SCOLIOSOIS NARCOLEPSY UTI LIVER CYST DEGENERATIVE DISC DISEASE ALLERGIES IMITREX: SEIZURES - ALLERGY IMPLANON: RASH - ALLERGY IV DYE: ANAPHYLAXIS - ALLERGY SURGICAL HISTORY APPENDIX 1993 C SECTION 1995 DYSPLASIA 1990 HERNIA REPAIR 1993 BUNIONECTOMY 1996 UTERAL ABLATION 2008 MULTIPLE INJECTIONS FOR BACK PAIN HEART CATH 2012 OR 2013 FAMILY HISTORY FATHER: , DIAGNOSED WITH DIABETES MOTHER: ALIVE, HYPERTENSION, HEART DISEASE, OTHER 2 SON(S) , 3 DAUGHTER(S) - HEALTHY. MOM-CRF. SOCIAL HISTORY GENERAL: TOBACCO USE ARE YOU A:NONSMOKER OTHERS AT HOME: SPOUSE. LANGUAGE LANGUAGES SPOKEN:AMERICAN DOMESTIC VIOLENCE DO YOU FEEL SAFE IN YOUR ENVIRONMENT?YES RECREATIONAL DRUG USE DRUG USE?NO LEARNING BARRIERS / SPECIAL NEEDS BARRIERS TO LEARNING?NO HEARING IMPAIRED?YES : SLIGHT LEFT EAR HEARING IMPAIRED. VISION IMPAIRED?YES :CORRECTIVE LENSES LEARNING PREFERENCES?NO PAIN CLINIC PFS, CLERGY, PUBLIC HEALTH REFERRALS PFS REFERRAL NEEDED?NO CLERGY REFERRAL NEEDED?NO PUBLIC HEALTH REFERRAL NEEDED?NO WAS THE PROVIDER NOTIFIED OF ANY PERTINENT INFO?YES N/A HAS THE PATIENT BEEN EDUCATED REGARDING HIS/HER PLAN OF CARE?YES HAS THE PATIENT BEEN EDUCATED REGARDING PAIN, THE RISK FOR PAIN, THE IMPORTANCE OF EFFECTIVE PAIN MANAGEMENT, AND THE PAIN ASSESSMENT PROCESS?YES LATEX QUESTIONNAIRE LATEX ALLERGY : HAVE YOU EVER DEVELOPED ANY TYPE OF REACTION AFTER HANDLING LATEX PRODUCTS SUCH RUBBER GLOVES, CONDOMS, DIAPHRAGMS, BALLOONS, SOCKS, OR UNDERWEAR?NO LATEX ALLERGY : HAVE YOU EVER DEVELOPED ANY TYPE OF REACTION DURING OR AFTER DENTAL APPOINTMENT, VAGINAL/RECTAL EXAMINATION, SURGICAL PROCEDURE, OR ANY OTHER EXPOSURE?NO LATEX RISK : HAVE YOU EVER HAD ANY DIFFICULTY BREATHING OR HIVES AFTER EATING OR HANDLING ANY FRUITS, OR VEGETABLES; SUCH KIWI, BANANAS, STONE FRUITS, OR CHESTNUTSNO LATEX RISK : DO YOU HAVE A PREVIOUS PERSONAL HISTORY OF MORE THAN NINE SURGERIES, SPINA BIFIDA, OR REPEATED CATHERTIZATIONS? NO LATEX RISK : ARE YOU FREQUENTLY EXPOSED TO LATEX PRODUCTS IN YOUR OCCUPATION?NO DATE ASKED : 07/01/2018 CAFFEINE CAFFEINE USE?YES HOW OFTEN AND HOW MUCH? DAILY USE ADVANCE DIRECTIVE ADVANCE DIRECTIVE DISCUSSED WITH PATIENT:YES HCP - CARMELINA ALSTON () RASTAFARI [id number] HINDUISM MARITAL STATUS: . ALCOHOL SCREENING DID YOU HAVE A DRINK CONTAINING ALCOHOL IN THE PAST YEAR?NO POINTS0 INTERPRETATIONNEGATIVE REVIEWED WITH PATIENT 11/29/17 1526 JSREVIEWED WITH PATIENT 05/17/18 1438 JS. HOSPITALIZATION/MAJOR DIAGNOSTIC PROCEDURE FLU LIKE SEIZURES AFTER IMITRIX INJECTION SURGERIES CHICKEN POX AN ADULT PNEUMONIA/FLUID RETENTION REVIEW OF SYSTEMS REVIEWED BY: PROVIDER: ALEX TANG . CONSTITUTIONAL: ANY CHANGE IN YOUR MEDICAL CONDITION? NO . CHILLS NO . FEVER NO . INFECTION: DO YOU HAVE NEW INFECTIONS? NO . DO YOU HAVE HISTORY OF MRSA? NO . MUSCULOSKELETAL: ANY NEW PATTERNS OF PAIN OR NUMBNESS? YES, PAIN IS IN LOW BACK MIGRATING INTO HIPS. . GASTROENTEROLOGY: ANY NEW CHANGE IN BOWEL CONTROL? NO . GENITOURINARY: ANY NEW CHANGE IN BLADDER CONTROL? NO . IS THERE A CHANCE YOU COULD BE ? NO . HEMATOLOGY/LYMPH: DO YOU TAKE ANY BLOOD THINNERS? (FOR EXAMPLE- COUMADIN, PLAVIX, AGGRENOX, PLATEL, PRADAXA, OR XARELTO) NO . WHEN WAS YOUR LAST DOSE? DATE: TIME: . NEUROLOGY: HAVE YOU FALLEN IN THE PAST 12 MONTHS? NO . ANY NEW EXTREMITY NUMBNESS OR WEAKNESS? NO . CARDIOLOGY: DO YOU HAVE A PACEMAKER OR DEFIBRILLATOR? NO . RESPIRATORY: HAVE YOU BEEN SICK IN THE PAST WEEK? NO . FEVER NO . FLU LIKE SYMPTOMS? NO . COUGH NO . INTEGUMENTARY: DO YOU HAVE ANY RASHES OR OPEN SORES? NO . ALLERGIC/IMMUNO: ARE YOU ALLERGIC TO IV DYE? NO . ANY NEW ALLERGIES? NO . PSYCHIATRIC: DO YOU HAVE THOUGHTS OF HURTING YOURSELF OR SOMEONE ELSE? NO . ARE YOU ABUSED, NEGLECTED, OR IN AN UNSAFE ENVIRONMENT? NO . ENDOCRINOLOGY: ARE YOU DIABETIC? NO . OTHER: DO YOU NEED ANY PRESCRIPTIONS? NO . IF YES, PLEASE LIST: ____ . ANY NEW PROBLEMS WITH YOUR MEDICATIONS? NO . WHEN DID YOU LAST EAT? ____ . WHEN DID YOU LAST DRINK? ____ . WHAT DID YOU LAST DRINK? ____ . NAME OF PERSON DRIVING YOU HOME? ____ . DO YOU HAVE ANY OTHER QUESTIONS OR CONCERNS PT STATES THAT SHE HAS BEEN HAVING INCREASED PAIN IN NECK AND SHOULDERS . VITAL SIGNS WT 201.4 LBS, HT 63", BMI 35.67 INDEX, BP 143/86 MM HG, HR 96 /MIN, RR 18 /MIN, TEMP 97.0 F, OXYGEN SAT % 96%, SAFE IN ENV? (Y/N) Y, NA INITIALS SC 14:47, REVIEWED BY: LINH. EXAMINATION GENERAL EXAMINATION: GENERAL APPEARANCE: AWAKE,ALERT ,PLEAASANT . PSYCH AFFECT NORMAL . LUNGS: LUNG [place] ARE CLEAR TO AUSCULTATION BILATERALLY. GOOD MOVEMENT OF AIR . HEART: S1, S2 IN A REGULAR RATE AND RHYTHM. NO SIGNIFICANT MURMURS, RUBS OR GALLOPS NOTED . LUMBAR SACRAL SPINEPALPATION:TENDER OVER BILAT. L4/5-L5/S1 LUMBAR FACETS WITH FACET LOADING R>L. ASSESSMENTS SPONDYLOSIS OF LUMBOSACRAL REGION WITHOUT MYELOPATHY OR RADICULOPATHY - M47.817 (PRIMARY) TREATMENT SPONDYLOSIS OF LUMBOSACRAL REGION WITHOUT MYELOPATHY OR RADICULOPATHY NOTES: DX RIGHT L4/5-L5/S1 FACET BLOCK. PROCEDURE CODES [id number] ESTABILISHED PATIENT [facility] CHARGE DISPOSITION & COMMUNICATION FOLLOW UP POST (REASON: DX RIGHT L4/5-L5/S1 FACET BLOCK) ELECTRONICALLY SIGNED BY CLYDE CARROLL ON 07/14/2018 AT 09:07 AM EDT DISCLAIMER : THIS IS A VISIT SUMMARY EXTRACTED FROM THE [employer] CHART. IT IS NOT A COPY OF THE [employer] PROGRESS NOTE. ANDREW
== END ==
LOC: M PAIN 14:30
PROVIDERS: ATTEND Nurse Practitioner Family
DX: M47.817 Spondylosis without myelopathy or radiculopathy, lumbosacral region (principal); J45.909 Unspecified asthma, uncomplicated; I10 Essential (primary) hypertension; G47.33 Obstructive sleep apnea (adult) (pediatric); M19.90 Unspecified osteoarthritis, unspecified site; Z88.8 Allergy status to other drugs, medicaments and biological substances; Z91.041 Radiographic dye allergy status; Z79.1 Long term (current) use of non-steroidal anti-inflammatories (NSAID); Z79.899 Other long term (current) drug therapy

== ENCOUNTER → 2022-06-26 | Outpatient (CLI) | payer OTHER ==
[~2022-06-26] MED LIST changes: -ARTI99.0 OU; +ARTIDRO4 OU; -CYMB60CA3 PO; +CYMB60CA4 PO; +NYST-38 SS; -NYST50SS SS; -VERA240T3 PO; +VERA240T64 PO
== END ==
LOC: M WHC 10:56
PROVIDERS: ATTEND Physician Assistant Medical
DX: Z12.31 Encounter for screening mammogram for malignant neoplasm of breast (principal)

== ENCOUNTER → 2022-07-13 | Outpatient (CLI) | payer OTHER | LOC: M RAD 17:25 → M LAB 17:25 | PROVIDERS: ATTEND Internal Medicine Pulmonary Disease | DX: J45.40 Moderate persistent asthma, uncomplicated (principal) ==

== ENCOUNTER → 2022-09-14 | Outpatient (CLI) | payer OTHER ==
[~2022-09-14] MED LIST changes: -HYDR200T3 PO; +HYDR200T46 PO; -K-TA10TA2 PO; +POTA-165 PO
== END ==
LOC: M PLARAD 13:06
PROVIDERS: ATTEND Student in an Organized Health Care Education/Training Program
DX: D47.2 Monoclonal gammopathy (principal)
CPT/HCPCS: 78816; A9552

== ENCOUNTER → 2023-06-03 | Outpatient (CLI) | payer OTHER ==
[~2023-06-03] MED LIST changes: +CELE0.09 PO; -CELE1CAP9 PO; +ISOVUE-300 61% 100ML VIAL As Ordered ONE; +LIDOCAINE 1% MDV 20ML VIAL As Ordered ONE; +methylPREDNISolone SUSP 40MG/ML 1ML VIAL (DEPO MEDROL) As Ordered ONE
== END ==
LOC: M RAD 14:36
PROVIDERS: ATTEND Physician Assistant
DX: M19.012 Primary osteoarthritis, left shoulder (principal)
CPT/HCPCS: 20610; 77002; J1010

== ENCOUNTER → 2023-08-16 | Outpatient (CLI) | payer OTHER ==
[~2023-08-16] MED LIST changes: -ISOVUE-300 61% 100ML VIAL As Ordered ONE; -LIDOCAINE 1% MDV 20ML VIAL As Ordered ONE; -methylPREDNISolone SUSP 40MG/ML 1ML VIAL (DEPO MEDROL) As Ordered ONE
== END ==
LOC: M PLAIMG 06:35
PROVIDERS: ATTEND Pain Medicine Interventional Pain Medicine
DX: M54.16 Radiculopathy, lumbar region (principal)

== ENCOUNTER → 2024-07-17 | Outpatient (CLI) | payer OTHER ==
[~2024-07-17] MED LIST changes: -ADV100INH INH; +ADVA1AER8 INH
== END ==
LOC: M WHC 16:09
PROVIDERS: ATTEND Nurse Practitioner Family
DX: Z12.31 Encounter for screening mammogram for malignant neoplasm of breast (principal)

== ENCOUNTER → 2024-11-28 | Outpatient (CLI) | payer OTHER | LOC: M PLAIMG 11:28 | PROVIDERS: ATTEND Physician Assistant | DX: J32.8 Other chronic sinusitis (principal) ==

== ENCOUNTER → 2025-02-08 | Outpatient (CLI) | payer OTHER | LOC: M SOG 07:39 | PROVIDERS: ATTEND Orthopaedic Surgery | DX: M25.562 Pain in left knee (principal); M17.0 Bilateral primary osteoarthritis of knee ==